=== PATIENT | female | born 1955 | race Caucasian/White ===

== ENCOUNTER 2016-03-04 09:43 | Inpatient (IN) | payer MEDICARE, OTHER ==
[~2016-03-04] VITALS: Ht 167.6 cm; Wt 57.0 kg
[2016-03-04] VITALS (7 sets, daily range): BP systolic 90–123; BP diastolic 51–59; PULSE 83–88; RESP 16; TEMP 95.6; Ht 167.6 cm; Wt 57.0 kg
[~2016-03-04 09:43] MED LIST: ACET1TAB40 PO; AMLO-218 PO; CARB200T43 PO; HYDR-2086 PO; HYDR-3671 PO; HYDR200T5 PO; LEVE100018 PO; LISI40TA9 PO; METH-58 PO; PIRO-9 PO
[2016-03-04] MEDS ORDERED: morphine 2 MG INJ IV STA (10:06)
[2016-03-04] MEDS ORDERED: SOD CHLORIDE 0.9% 1,000 ML IV STA (10:06)
--- NOTE | 2016-03-04 10:47 | RADRPT ---
PROCEDURE: Chest Radiograph. CLINICAL INDICATION: Preop TECHNIQUE: Single frontal chest radiograph. COMPARISON: Chest radiograph 10/29/2014 FINDINGS: The cardiomediastinal silhouette is within normal limits. No infiltrate or effusion is seen. Th e bones are intact. IMPRESSION: 1. Unremarkable chest radiograph. RPTAT: KK .Ralph Gonzalez MD, MD Date Time Electronically viewed and signed by .Ralph Gonzalez MD, on 03/04/2016 10:46 .B/
--- NOTE | 2016-03-04 10:49 | RADRPT ---
PROCEDURE: XR Hip. CLINICAL INDICATION: Fall, leg shortening, pain TECHNIQUE: AP and frog lateral views of the right hip were performed. COMPARISON: None. FINDINGS: There is an impacted, comminuted intertrochanteric fracture of the right hip. There is varus angula tion of the distal fragment. IMPRESSION: 1. Comminuted, impacted intertrochanteric fracture of the right hip with varus deformity. RPTAT: [facility] Physician Bipin Date Time Electronically viewed and signed by Javid Dawson Physician on 03/04/2016 10:49 /
[2016-03-04 11:38] LABS: HEMATOCRIT 31.9 % (37.0-47.0); HEMOGLOBIN 10.9 g/dl (12.0-16.0); MEAN CORPUSCULAR HEMOGLOBIN 33.1 pg (29.0-33.0); MEAN CORPUSCULAR HGB CONC 34.2 g/dl (32.0-37.0); MEAN CORPUSCULAR VOLUME 96.8 fl (82.0-101.0); MEAN PLATELET VOLUME 7.3 fl (7.4-10.4); PLATELET COUNT 278 10^3/UL (140-440); RED BLOOD COUNT 3.29 10^6/ul (4.20-5.40); RED CELL DISTRIBUTION WIDTH 13.8 % (11.5-14.5); UNCORRECTED WBC 17.6 10^3/ul (4.8-10.8); WHITE BLOOD COUNT 17.6 10^3/ul (4.8-10.8)
[2016-03-04 11:43] LABS: POTASSIUM 4.5 mmol/L (3.5-5.1)
[2016-03-04 11:45] LABS: CONDITION 1; CREATININE 2.6 mg/dl (0.44-1.00); LH ANALYZER COMMENTS 1; SUSPECT 1
[2016-03-04 11:46] LABS: CALCIUM 7.8 mg/dl (8.4-10.2)
[2016-03-04 11:51] LABS: ADD UMIC YES; URINE BILIRUBIN (Dip) 1+ (NEGATIVE); URINE BLOOD (Dip) NEGATIVE (NEGATIVE); URINE COLOR AMBER (YELLOW); URINE GLUCOSE (Dip) NEGATIVE (NEGATIVE); URINE KETONES (Dip) 15 (NEGATIVE); URINE LEUKOCYTE ESTERASE (Dip) NEGATIVE (NEGATIVE); URINE NITRITE (Dip) NEGATIVE (NEGATIVE); URINE TOTAL PROTEIN (Dip) 1+ (NEGATIVE); URINE UROBILINOGEN (Dip) 0.2 E.U./dL (0.1-1.0)
[2016-03-04] MEDS ORDERED: SOD CHLORIDE 0.9% 1,000 ML IV ONE (12:00)
[2016-03-04 12:22] LABS: BACTERIA,URINE MODERATE; ICTOTEST NEGATIVE (NEGATIVE); URINE RBCS NONE SEEN /HPF (0)
[2016-03-04] MEDS ORDERED: CEFTRIAXONE 1 GM/50 ML (PMX) 50 ML IVPB STA (12:32)
[2016-03-04] MEDS ORDERED: ACETAMINOPHEN 325 MG TAB PO PRN ×2 (13:00→15:00)
[2016-03-04] MEDS ORDERED: ONDANSETRON 4 MG INJ IV PRN ×2 (13:00→15:00)
[2016-03-04 13:17] LABS: LYMPHOCYTES # 0.7 10^3/ul (0.8-2.9); MONOCYTE # 0.5 10^3/ul (0.3-0.9)
[2016-03-04] MEDS ORDERED: DOCUSATE SODIUM 100 MG CAP PO PRN (15:00)
[2016-03-04] MEDS ORDERED: HYDROCODONE/APAP (5/325) TAB PO PRN ×2 (15:00)
[2016-03-04] MEDS ORDERED: NACL 0.9% 3 ML SYG IV SCH (15:00)
[2016-03-04] MEDS ORDERED: BISACODYL 10 MG SUPP PR PRN (15:00)
[2016-03-04] MEDS ORDERED: MAGNESIUM HYDROXIDE 30ML CUP PO PRN (15:00)
[2016-03-04] MEDS: carBAMAZepine (XR) 100 MG TABSR PO SCH ×2 (15:06→20:17)
[2016-03-04] MEDS ORDERED: LEVOFLOXACIN 500MG/D5W (PMX) 100 ML IVPB SCH (15:30)
[2016-03-04] MEDS: SOD CHLORIDE 0.9% 1,000 ML IV SCH (16:02)
--- NOTE | 2016-03-04 17:11 | RADRPT ---
PROCEDURE: US Renal CLINICAL INDICATION: Acute renal insufficiency. TECHNIQUE: Multiple sonographic images of the kidneys and bladder were obtained. Evaluation of th e kidneys and bladder was performed as well with yoder scale and color and Doppler evaluation using a curved array transducer. The images were reviewed on a high-resolution PACS workstation. COMPARISON: No prior studies are available for comparison. FINDINGS: The right kidney measures 9.5 x 5.6 x 5.7 cm. The left kidney measures 10.8 x 6.6 x 5.3 cm. There is normal echogenicity within the parenchyma of the kidneys bilaterally. There is no mass, calculus, or obstructive uropathy. No perinephric fluid collection is seen. There is a Pelaez catheter in the urinary bladder. IMPRESSION: 1. Unremarkable renal ultrasound. RPTAT: [facility] Physician Bipin Date Time Electronically viewed and signed by Physician Bipin on 03/04/2016 17:11 /
[2016-03-04 17:26] LABS: INR 1.12; PROTIME 14.4 Sec (12.2-14.2); PT RATIO 1.1
[2016-03-04 17:27] LABS: PARTIAL THROMBOPLASTIN TIME 25.5 Sec (25.0-35.0)
--- NOTE | 2016-03-04 17:41 | RADRPT ---
Echocardiogram Report Patient Name: LISHA CAPONE Gender: Female Date: 1955 Study Date: 04-Mar-2016 Route Supervisor: Fazal Roberson [facility] Location: 507 Ref. Physician: OSCAR RENEE Quality: Good Procedures: Transthoracic echocardiogram with complete 2D, M-Mode, and doppler examination. Indications: Pre-op. 2D/M Mode Doppler Measurement Value Normal Ranges Measurement Value Normal Ranges LVIDd 2D 3.6 3.5 - 5.6 cm AV Peak Heron 1.8 m/sec LVIDs 2D 1.8 2.1 - 4.1 cm AV Peak PG 13.0 mmHg FS 2D 49.9 % LVOT Peak Heron 1.5 m/sec LVPWd 2D 1.0 0.6 - 1.1 cm LVOT Peak PG 9.0 mmHg IVSd 2D 1.1 0.6 - 1.1 cm MV E Peak Heron 0.6 m/sec IVS/LVPW 2D 1.2 MV A Peak Heron 0.9 m/sec AoR Diam 2D 3.0 2.0 - 3.7 cm MV E/A 0.6 LA/Ao 2D 1 0 - 1 MV Decel Time 268 msec EDV 2D 45.5 cm3 MV E/A 0.6 ESV 2D 5.7 cm3 LA Dimen 2D 2.5 2.3 - 4.0 cm Findings Left Ventricle: Hyperdynamic left ventricular systolic function. Normal left ventricular cavity size. Mild concentric left ventricular hypertrophy. Ejection fraction is visually estimated at >65 %. Tissue Doppler/Mitral Doppler indices are consistent with impaired relaxation (Stage I diastolic dysfunction). Right Ventricle: Normal right ventricular size. Normal right ventricular systolic function. Left Atrium: The left atrium is normal in size. Right Atrium: The right atrium is normal in size. Mitral Valve: Mild mitral leaflet calcification. Mild mitral annular calcification. Trace mitral regurgitation. Aortic Valve: No significant aortic stenosis or insufficiency. Aortic cusps appear mildly calcified. Tricuspid Valve: Normal appearance of the tricuspid valve. Unable to obtain RVSP due to minimal presence of tricuspid regurgitation. Pericardium: Trivial pericardial effusion. Aorta: Normal aortic root. IVC: Normal size and normal respiratory collapse consistent with normal right atrial pressure. Conclusions 1.Hyperdynamic left ventricular systolic function. Normal left ventricular cavity size. Mild concentric left ventricular hypertrophy. Ejection fraction is visually estimated at >65 %. Tissue Doppler/Mitral Doppler indices are consistent with impaired relaxation (Stage I diastolic dysfunction). 2.Mild mitral leaflet calcification. Mild mitral annular calcification. Trace mitral regurgitation. 3.Normal appearance of the tricuspid valve. Unable to obtain RVSP due to minimal presence of tricuspid regurgitation. 4.Trivial pericardial effusion. Electronically Signed By: James Noe 04-Mar-2016 17:40:19 -0800 Patient Name: ILSHA CAPONE Study Date: 04-Mar-[id number]
--- NOTE | 2016-03-04 18:16 | HP ---
DATE OF ADMISSION: 03/04/2016 PRIMARY PHYSICIAN: Dr. Calderón PRIMARY NEUROLOGIST: Dr. Hernandez CHIEF COMPLAINT ON ADMISSION: Status post fall with right hip pain. HISTORY OF PRESENT ILLNESS: This is a 60-year-old female with history of seizure disorder, hyperten aracelis, rheumatoid arthritis and chronic pain, under the care of a chiropractor and also undergoing ph ysical therapy as an outpatient mostly for her arm pain and neck pain, who presented to the emergenc y department with a complaint of right hip pain status post fall yesterday. The patient had an x-ra y and was found to have a comminuted, impacted intertrochanteric fracture of the right hip. The pat marcia reports that she has been undergoing physical therapy. She really does not use any assistive d evice but has been having a lot of pain throughout her body that she is treating currently and also has noticed some unsteadiness occasionally and pain in her lower extremities, again for which she nance s been under the treatment of a chiropractor currently. Yesterday she reports that her legs just ga ve out and she fell on her right side. After the fall, she needed assistance from her neighbor to b e able to get up. She wasn't really able to get up on her own. She has not been much mobile. The pain has been worsening over the past 24 hours. She came to the emergency department. In the ER, a gain she had x-ray of the hip and was found to have a right hip intertrochanteric fracture. ___ _, Orthopedic Surgery assessment nurse practitioner, has been called and notified. Also the patient is noted to have an e levated white blood cell count of 17. Blood pressure was slightly low. She is hypertensive, on mul tiple blood pressure medications. She took them today. Therefore, she was started on IV fluids, an d her blood pressure medications are on hold. She is also noted to have acute kidney injury. It is unclear if she was down long after the fall. Therefore, total CK is pending, and she is started on IV fluid. A Pelaez catheter was placed. The patient is afebrile. She is hemodynamically stable. She is at her baseline currently. She is admitted to a telemetry bed for now. Orthopedic surgery e valuation is pending. She was given a dose of Rocephin. The patient also reports that over the pas t week she has had upper respiratory infection for which she has been treated symptomatically so far and seems to be recovering from it. She denies any chest pain. She denies cough actually currentl y. She denies any nausea, vomiting, abdominal pain. She denies any other acute symptoms. No new n eurological deficit and no cardiopulmonary complaints. ALLERGIES: NO KNOWN ALLERGIES. PAST MEDICAL HISTORY: 1. Seizure disorder. 2. Rheumatoid arthritis. 3. Hypertension. 4. Chronic pain, narcotic dependent. 5. Previous history of hyponatremia. PAST SURGICAL HISTORY: The patient has had bunionectomy in the past but also seems to have had some orthopedic surgery done as a child. SOCIAL HISTORY: She lives alone with multiple animals. She drinks alcohol occasionally. She hasn' t drank anything over the past month. She does smoke still, 1 pack a day over the past 30 years now . OUTPATIENT MEDICATIONS: 1. Plaquenil 200 mg p.o. b.i.d. 2. Norvasc 10 mg p.o. daily. 3. Hydralazine 25 mg p.o. t.i.d. as needed for hypertension. 4. Lisinopril 40 mg p.o. daily. 5. Methyldopa 500 mg p.o. b.i.d. 6. Tylenol with codeine 30/30 one tablet p.o. q.4 hours p.r.n. pain. 7. Carbamazepine XR 400 mg p.o. t.i.d. 8. Vicodin 5/300 one tablet p.o. q.4 hours p.r.n. pain. 9. Keppra 1000 mg p.o. b.i.d. 10. Piroxicam 20 mg p.o. daily. PHYSICAL EXAMINATION: VITAL SIGNS: Temperature is 95.6, heart rate of 69, respiratory rate 18, blood pressure 100/60. Th e patient is satting 98% on room air. GENERAL: She is alert and oriented x4. She is at her baseline, just complaining of pain in her rig ht hip. HEENT: Pupils are equally round and reactive to light. Extraocular muscles are intact. Anicteric sclerae. NECK: No JVD, no thyromegaly noted. HEART: Regular rate and rhythm. No murmur, rubs or gallops. LUNGS: Clear to auscultation bilaterally. No expiratory wheezes heard. No congestion. No crackle s. ABDOMEN: Soft, nontender, nondistended. Bowel sounds are present. EXTREMITIES: She does have pain on her right hip. It's externally rotated, shorter than the left l ower extremity. She has no edema, clubbing or cyanosis noted. NEUROLOGIC: Very limited exam but at baseline. LABORATORY DATA: White blood cell count is 17.6, hemoglobin 10.9, hematocrit 31.9, platelet count o f 278. Chemistry with a sodium of 131, potassium 102, bicarbonate 16, BUN 48, creatinine 2.60 and a glucose of 99. Lactic acid 1.1, calcium 7.8. INR is pending. Urinalysis: Negative nitrites, neg ative leukocyte esterase, moderate bacteria. ELECTROCARDIOGRAM: On admission shows normal sinus rhythm, some LVH. No acute ST or T-wave abnorma lity noted. RADIOLOGICAL DATA: Chest x-ray today shows no acute cardiopulmonary disease. X-ray of the right hip shows a comminuted, impacted intertrochanteric fracture of the right hip with varus deformity. ASSESSMENT AND PLAN: This is a 60-year-old female with: 1. Right hip fracture status post fall which seems to be more as accidental. She does have a right hip fracture. Orthopedic Surgery has been consulted. From the medical standpoint, she is likely a low to moderate risk for surgery. We will continue to hydrate her given her acute kidney injury, a nd a 2-D echocardiogram has been ordered given her history of significant hypertension. Otherwise, she does not need any additional workup needed at this point. We are also waiting on blood cultures and urine cultures given her elevated white blood cell count, but her chest x-ray is negative. She will be monitored closely perioperatively. 2. Acute kidney injury. Will check a total CK as it is unclear if the patient was sitting down for a while or not. Continue IV fluid. Check renal ultrasound and monitor renal function. Pelaez cath eter is in place. Continue to monitor urine output. 3. Hypertension, severe, on multiple agents. Currently her blood pressure is hypotensive to normot ensive. Continue IV fluids in the setting of acute kidney injury and will hold all the blood pressu re medications for now. 4. Chronic hyponatremia. Her baseline sodium level is 120 to 130. Continue IV fluids for now and monitor her sodium level. 5. Seizure disorder. Continue outpatient medications. 6. Chronic pain, narcotic dependent. Continue current pain medications. Morphine has been added a s needed for hip pain. 7. Leukocytosis, unclear etiology. The patient does report that she has been having symptoms of up per respiratory infection lately. I will put her on Levaquin, which would cover also respiratory, a nd follow up white blood cell count in a.m. 8. Prophylaxis: Sequential compression devices to lower extremity for DVT prophylaxis, may convert to Lovenox once we know timing for surgery. Protonix for GI prophylaxis. DISPOSITION: Orthopedic surgery consult pending. Follow up on blood cultures, urine cultures and r enal function and white blood cell count with repeat labs in the morning. I will also follow up on the 2-D echocardiogram, and PT, PTT, INR have been ordered. Dictated By: AMBROSE PAREDES/DELGADO Conf#: [id number] DID#: [id number]
[2016-03-04] MEDS: LEVETIRACETAM 500 MG TAB PO SCH (20:16)
[2016-03-04] MEDS: HYDROXYCHLOROQUINE 200 MG TAB PO SCH (20:16)
--- NOTE | 2016-03-04 20:39 | ERA ---
DATE OF SERVICE: 03/04/2016 HISTORY OF PRESENT ILLNESS: This is a 60-year-old female brought in by ambulance today for right hi p pain. She states that she fell yesterday when her right leg "gave out." She had no chest pain, l ightheadedness or shortness of breath prior to this. She had been seeing a chiropractor for leg and back problems recently. She denies head injury or loss of consciousness. States that she was ambu latory on the hip yesterday, but this morning, she could not walk because of the pain of her hip. D enies any fever, chills, weakness or neurological symptoms. She does not frequently see doctors. REVIEW OF SYSTEMS: Ten-point review of systems negative except as in HPI. PAST MEDICAL HISTORY: Seizure disorder. PAST SURGICAL HISTORY: Benign lump removed from right breast, ENT surgery, left foot surgery. SOCIAL HISTORY: Drinks alcohol occasionally, smokes cigarettes. Denies any other drugs. FAMILY HISTORY: Noncontributory. PHYSICAL EXAMINATION: VITAL SIGNS: Temperature 98.5, pulse 78, blood pressure 100/60, respirations 18, oxygen saturation 98% on room air. GENERAL: No acute distress. HEENT: Atraumatic, normocephalic. Slightly dry mucous membranes in the mouth. NECK: Supple. No tenderness, JVD or meningismus. CARDIAC: Regular rate and rhythm. No murmurs. LUNGS: Clear to auscultation bilaterally. ABDOMEN: Soft, nontender, nondistended. No masses. EXTREMITIES: Right leg with shortening, external rotation, tenderness along the right greater troch anter. Significant pain on any slight attempt to internally or externally rotate the hip. Full mus culoskeletal assessment finds no other injuries at any location. The patient has distal pulses inta ct, 2+ dorsalis pedis and posterior tibial of bilateral lower extremities. Good capillary refill, a pproximately 1 second. Sensation is intact as well as motor, bilateral feet. NEUROLOGIC: Alert and oriented x3. Cranial nerves II through XII intact. No cerebellar deficits. SKIN: No rashes or other lesions. DIAGNOSTIC DATA: Hip x-ray interpretation by myself: Intertrochanteric fracture with significant v arus angulation, approximately 90 degrees. No other fracture of the pelvis or other fracture visual ized. Chest x-ray interpretation by myself: I see no acute process, no infiltrates, no pulmonary edema, n o pneumothorax, no fractures. Laboratory analysis: CBC significant for elevated white blood cell count of 17.9 with a left shift, normocytic anemia with a hemoglobin of 10.9. Coagulation studies are within normal limits with an INR of 1.1. BMP significant for mildly decreased sodium as well as acute kidney injury with a creat inine of 2.6 and a BUN of 48. Urinalysis shows andrew-colored urine with 2 to 5 white cells per high -power field but negative leukocyte esterase. However, moderate bacteria are seen even with few squ amous epithelial cells. The urine is cloudy. EKG interpretation: Normal sinus rhythm with no ST or T-wave changes concerning for acute ischemia, no concerning intervals. Normal axis, rate of 84, left ventricular hypertrophy. EMERGENCY DEPARTMENT COURSE AND MEDICAL DECISION MAKING: Right hip fracture with acute kidney injur y and elevated white blood cell count without obvious source of infection. The patient was hydrated with 2 L of normal saline. She was given 2 mg of morphine, which helped with her pain hip signific antly, and she had very low pain when she was not moving. When her white blood cell count returned elevated, she was also given Rocephin for empiric treatment of infection. There is no obvious sourc e of infection at this point although there were many bacteria in her urine, so it is possible she h as a urinary tract infection, which may also cause her to fall more easily. She has no signs of sep sis as lactic acid is only 1.1 and vital signs remain stable except for episodic mild hypotension. I did speak with Dr. Saldana, orthopedist financial services consultant, who agreed to see the patient on consult. I also spo ke with Dr. Prado, who agreed to admit the patient to medical/surgical floor. I ordered a CK to rule out rhabdomyolysis, although the patient states that she was mobile until this morning. Dr. Johan morrison to follow up with it. ADMISSION DIAGNOSES: 1. Right intertrochanteric hip fracture, closed. 2. Acute kidney injury. 3. Urinary tract infection. 4. Hyponatremia. DISPOSITION: Admitted in stable condition. Dictated By: MANOJ ORDONEZ/DELGADO Conf#: [id number] DID#: [id number]
[2016-03-04] MEDS ORDERED: carBAMAZepine (XR) 200 MG TABSR PO SCH (21:00)
[2016-03-04] MEDS: morphine 2 MG INJ IV PRN (22:04)
[2016-03-04 22:08] LABS: CK-MB 26.2 ng/ml (0.0-2.4)
[2016-03-04 22:20] LABS: TROPONIN-I 0.296 ng/ml (0.00-0.12)
--- NOTE | 2016-03-04 23:32 | RADRPT ---
PROCEDURE: XR Right Femur. CLINICAL INDICATION: Right leg pain. Fracture. TECHNIQUE: Single frontal view of the right femur. COMPARISON: Right hip radiographs done earlier the same day. FINDINGS: As seen previously, there is a comminuted impacted intertrochanteric fracture of the right hip with varus deformity. The right femur is otherwise unremarkable with no other fracture or dislocation. Vascular calcifications are present consistent with atherosclerosis. Articular surfaces are intact. There is no lytic or blastic lesion. There is no radiopaque foreign body. IMPRESSION: 1. Comminuted impacted intertrochanteric fracture of the right hip with varus deformity. 2. Otherwise unremarkable frontal view of the right femur. RPTAT: QQ .Abdirashid Kothari MD, Date Time Electronically viewed and signed by .Abdirashid Kothari MD, MD on 03/04/2016 23:31 .R/
--- NOTE | 2016-03-04 23:33 | RADRPT ---
PROCEDURE: Right knee radiograph. CLINICAL INDICATION: Right knee pain. TECHNIQUE: Single frontal view. COMPARISON: None. FINDINGS: The right knee is intact with no fracture or lytic lesion. IMPRESSION: 1. Unremarkable limited frontal view of the right knee. RPTAT: QQ .Abdirashid Kothari MD, MD Date Time Electronically viewed and signed by .Abdirashid Kothari MD, MD on 03/04/2016 23:32 .R/
[2016-03-05] VITALS (11 sets, daily range): BP systolic 114–151; BP diastolic 58–78; PULSE 77–97; RESP 16–18
[2016-03-05] MEDS: SOD CHLORIDE 0.9% 1,000 ML IV SCH ×3 (00:38→16:03)
--- NOTE | 2016-03-05 01:13 | CONS ---
DATE OF ADMISSION: 03/04/2016 DATE OF CONSULTATION: 03/04/2016 CHIEF COMPLAINT: Right hip pain. HISTORY OF PRESENT ILLNESS: This is a 60-year-old female with a history of seizure disorder who fel l, sustaining a right hip fracture. The patient was unable to ambulate. She denies any loss of con sciousness. She was brought to the emergency room by EMS. She denies any chest pain, shortness of breath. She has no other complaints. PAST MEDICAL HISTORY: Seizures, hypertension, rheumatoid arthritis, narcotic dependent. MEDICATIONS: 1. Plaquenil 200 mg p.o. b.i.d. 2. Norvasc 10 mg daily. 3. Hydralazine 25 mg daily. 4. Lisinopril 40 mg daily. 5. Methyldopa 500 mg b.i.d. 6. Keppra 1000 mg p.o. b.i.d. 7. Piroxicam 20 mg daily. PAST SURGICAL HISTORY: Bunionectomy. SOCIAL HISTORY: She lives alone. She admits to alcohol and tobacco use. FAMILY HISTORY: Noncontributory. ALLERGIES: NO KNOWN DRUG ALLERGIES. PHYSICAL EXAMINATION: VITAL SIGNS: Temperature 95.6, heart rate of 69, blood pressure 100/60. GENERAL: The patient is in no acute distress. She is resting comfortably. RIGHT HIP: There are no open wounds. She has pain with axial loading. Her hip is shortened and ex ternally rotated. Her calf is soft, nontender with a negative Homans. She has a palpable dorsalis pedis pulse. IMAGING: X-rays of the right hip demonstrate displaced oblique intertrochanteric fracture. There i s also fracture of the lesser trochanter. The femoral head is in varus position. No other fracture s, dislocations are seen. IMPRESSION: A 60-year-old female who fell, sustaining a left closed displaced oblique intertrochant steffany femur fracture. PLAN: The patient will be nonweightbearing. She will need medical clearance for surgery. She has an elevated white count. There is no obvious source of infection. The patient will require right h ip open reduction, internal fixation. I discussed the risks associated with surgery. The risks include but are not limited to infection, deep venous thrombosis, pulmonary embolism, damage to neurovascular structures, malunion, nonunion, need for revision surgery, need for hardware removal, arthritis, heart attack, stroke, need for bloo d transfusion and even . I also explained to her that there is up to a 35% chance of 1-year mo rtality. She will receive Ancef 1 gram prior to surgery with 2 additional doses after surgery. She will also receive aspirin 325 mg p.o. b.i.d. for 6 weeks for DVT prophylaxis in addition to SCDs fo r DVT prophylaxis. Dictated By: KY MONTERO/DELGADO Conf#: [id number] DID#: [id number]
[2016-03-05] MEDS: morphine 2 MG INJ IV PRN ×2 (03:00→23:09)
[2016-03-05] MEDS: PANTOPRAZOLE (EC) 40 MG TAB PO SCH (05:51)
[2016-03-05 07:33] LABS: CK-MB 18.7 ng/ml (0.0-2.4)
[2016-03-05 07:34] LABS: BASOPHILS % 0.1 % (0.0-2.0); EOSINOPHILS % 0.2 % (0.0-7.0); HEMATOCRIT 29.5 % (37.0-47.0); HEMOGLOBIN 10.1 g/dl (12.0-16.0); LYMPHOCYTES # 0.9 10^3/ul (0.8-2.9); LYMPHOCYTES % 8.3 % (15.0-51.0); MEAN CORPUSCULAR HEMOGLOBIN 33.7 pg (29.0-33.0); MEAN CORPUSCULAR HGB CONC 34.3 g/dl (32.0-37.0); MEAN CORPUSCULAR VOLUME 98.3 fl (82.0-101.0); MEAN PLATELET VOLUME 7.4 fl (7.4-10.4); MONOCYTE # 1.1 10^3/ul (0.3-0.9); MONOCYTES % 10.1 % (0.0-11.0); NEUTROPHIL # 8.8 10^3/ul (1.6-7.5); NEUTROPHILS % 81.3 % (39.0-77.0); PLATELET COUNT 230 10^3/UL (140-440); RED CELL DISTRIBUTION WIDTH 13.4 % (11.5-14.5); UNCORRECTED WBC 10.8 10^3/ul (4.8-10.8); WHITE BLOOD COUNT 10.8 10^3/ul (4.8-10.8)
[2016-03-05 07:38] LABS: CONDITION 1
[2016-03-05 07:49] LABS: TROPONIN-I 0.266 ng/ml (0.00-0.12)
[2016-03-05 08:07] LABS: CHOL/HDL RATIO 4.3 RATIO
[2016-03-05] MEDS: HYDROXYCHLOROQUINE 200 MG TAB PO SCH ×2 (08:20→20:41)
[2016-03-05] MEDS: LEVETIRACETAM 500 MG TAB PO SCH ×2 (08:20→20:41)
[2016-03-05] MEDS: PIROXICAM 10 MG CAP PO SCH (08:20)
[2016-03-05] MEDS: carBAMAZepine (XR) 100 MG TABSR PO SCH ×3 (08:20→20:41)
[2016-03-05 08:47] LABS: ALBUMIN 2.7 g/dl (3.3-4.9); POTASSIUM 4.7 mmol/L (3.5-5.1)
[2016-03-05 08:49] LABS: BILIRUBIN,INDIRECT 0.2 mg/dl (0-1.1); BILIRUBIN,TOTAL 0.2 mg/dl (0.2-1.3); CREATININE 1.17 mg/dl (0.44-1.00)
[2016-03-05 08:50] LABS: ALBUMIN/GLOBULIN RATIO 1.08; CALCIUM 8.4 mg/dl (8.4-10.2); TOTAL PROTEIN 5.2 g/dl (6.1-8.1)
[2016-03-05] MEDS ORDERED: PIROXICAM 20 MG PO SCH (09:00)
[2016-03-05] MEDS ORDERED: FELODIPINE (ER) 10 MG TAB PO SCH (09:00)
[2016-03-05] MEDS ORDERED: REGADENOSON 0.4 MG/5 ML SYG ONE (10:07)
--- NOTE | 2016-03-05 10:26 | CONS ---
DATE OF ADMISSION: 03/04/2016 DATE OF CONSULTATION: 03/04/2016 TYPE OF CONSULTATION: Cardiology. REASON FOR CONSULTATION: Preoperative evaluation. REQUESTING PHYSICIAN: Dr. Renee HISTORY OF PRESENT ILLNESS: Ms. Guerin is a 60-year-old female with a history of hypertension, se izure disorder, rheumatoid arthritis, chronic pain syndrome who initially presented status post fall . The patient states that she was walking and felt that her legs gave out from under her. The justa ent denied a prodrome of chest pain, palpitations, dizziness, shortness of breath. Upon arrival in the emergency department, temperature of 98.5, blood pressure 100/60, pulse 78, respiratory rate 18, saturating 98%. The patient's labs revealed a white cell count of 17.6, hemoglobin 10.9, a platele t count of 278. Sodium 131, potassium 4.5, creatinine 2.6, BUN of 48, CK total of 2460. The patien t underwent a UA revealing bacteria. The patient underwent a renal ultrasound revealing no signific ant abnormalities; a hip x-ray revealed a comminuted, impacted intertrochanteric fracture of the ___ _ hip with varus deformity; and a chest x-ray that revealed unremarkable chest radiograph. The justa ent's electrocardiogram revealed sinus rhythm, rate of 84 with normal axis, normal intervals, left v entricular hypertrophy by voltage criteria, secondary repolarization abnormalities, borderline septa l Q's, nonspecific ST and T abnormalities. The patient subsequently has been admitted to the floor and since admit to floor denies chest pain, shortness of breath. PAST MEDICAL HISTORY: As above in HPI. MEDICATIONS CURRENTLY IN HOSPITAL: 1. Piroxicam. 2. Protonix 40 mg daily. 3. Plaquenil. 4. Keppra 1000 mg b.i.d. 5. Levofloxacin. 6. Tegretol 400 mg t.i.d. 7. Zofran p.r.n. 8. Tylenol p.r.n. 9. [place] p.r.n. 10. Colace p.r.n. 11. Morphine p.r.n. 12. Dulcolax. 13. IV fluid hydration. ALLERGIES: NO KNOWN DRUG ALLERGIES. SOCIAL HISTORY: No tobacco, ETOH, illicit drug use. FAMILY HISTORY: No history of sudden cardiac or early CAD. REVIEW OF SYSTEMS: As above in HPI. CONSTITUTIONAL: No fevers, chills. PULMONARY: No current shortness of breath. CARDIOVASCULAR: No current chest pain. GASTROINTESTINAL: No vomiting. GENITOURINARY: No hematuria. MUSCULOSKELETAL: No significant myalgia, arthralgia. ____ hip fracture. ENDOCRINE: No documented history of diabetes mellitus. PSYCHIATRIC: No documented psychiatric history. PHYSICAL EXAMINATION: VITAL SIGNS: Temperature of 95.6, blood pressure 100/60, pulse ____, respiratory rate 18, saturatin g 98%. GENERAL: The patient is alert, awake. No acute distress. NECK: JVP approximately 8 cm of water. CHEST: Fair air movement throughout with mildly decreased breath sounds at bases bilaterally. HEART: Regular rate and rhythm. Normal S1, S2. I/ systolic murmur. Nondisplaced PMI. ABDOMEN: Positive bowel sounds. Soft. EXTREMITIES: No pitting edema. 1+ pulses bilaterally at posterior tibial. LABORATORY DATA: As above in HPI. No further labs for my review at this time. IMAGING STUDIES: As above in HPI. No further imaging studies for my review at this time. ELECTROCARDIOGRAM: As above in HPI. No further electrocardiograms for my review at this time. IMPRESSION: 1. Preoperative evaluation prior to hip open reduction, internal fixation. 2. Status post fall, mechanical by description. 3. Hypotension, borderline. 4. Abnormal electrocardiogram with nonspecific ST and T abnormalities, left ventricular hypertrophy . 5. Hip fracture, intertrochanteric fracture, ____ hip. 6. Leukocytosis. 7. Anemia. 8. Renal failure. RECOMMENDATIONS: 1. At this time would maintain patient on telemetry monitoring to follow rhythm and rate control cl osely. 2. Would complete a rule-out for myocardial infarction, ensure that the patient's EKG abnormalities , fall are not the result of an acute coronary syndrome such as an acute myocardial infarction. 3. Will check a 2D echocardiogram to further assess patient's ejection fraction, wall motion, any m ajor valve abnormalities and will follow the patient's blood pressure closely and check a BNP to fur ther assess patient's current volume status. Continue IV fluid hydration. 4. Continue the patient's current antibiotics and follow up all culture data. 5. Continue the patient's anti-seizure medications. 6. Additionally, check a fasting lipid panel for general risk stratification and initiate lipid-low ering medication as necessary. 7. If the patient's troponins return negative x3 and the patient's 2D echo is without significant a bnormalities, then at that time the patient will be without cardiac contraindication to proceeding t o the OR on current medical therapy without further noninvasive evaluation. The patient, given madelin rbid risk factors, will be at moderate risk for cardiovascular complications but without contraindic ation. Postoperatively would check a 12-lead EKG to assess for any significant ongoing changes and watch closely for signs or symptoms of cardiovascular complications including but not limited to the onset of chest pain, shortness of breath, uncontrolled cardiac arrhythmias or congestive heart fail ure. Dictated By: DAKOTAH BENÍTEZ/DELGADO Conf#: [id number] DID#: [id number] CC: AMBROSE RENEE MD;*End*
--- NOTE | 2016-03-05 10:59 | CONS ---
Date/Time of Note Date/Time of Note DATE: 03/05/16 TIME: 10:52 Assessment/Plan Assessment/Plan Chief Complaint/Hosp Course IMPRESSION: 1. Preoperative evaluation prior to hip open reduction, internal fixation. 2. Status post fall, mechanical by description. 3. Hypotension, borderline. 4. Abnormal electrocardiogram with nonspecific ST and T abnormalities, left ventricular hypertrophy. 5. Hip fracture, intertrochanteric fracture of hip. 6. Leukocytosis. 7. Anemia. 8. Renal failure. 9.Positive troponin-minimal/no current cp but sob in setting of renal failure. Now downtrending/NL EF by echo this admit with no sig valve abnl Recc: -Tele -asa -follow improving BP -Continue IVF hydration and follow volume status closely -Pain control -lexiscan stress test this AM to assess significance of positive troponin Problems: Consultation Date/Type/Reason Admit Date/Time Mar 04, 2016 at 12:54 Initial Consult Date 03/04/2015 Type of Consultation: Cardiology Reason for Consultation Pre-op Referring Provider: AMBROSE RENEE Exam/Review of Systems Vital Signs Vitals Vital Signs Date Time Temp Pulse Resp B/P Pulse Ox O2 Delivery O2 Flow Rate FiO2 03/05/16 08:08 90 03/05/16 08:07 98.5 16 133/72 99 03/05/16 02:19 Room Air Intake and Output 03/04/16 03/04/16 03/05/16 15:00 23:00 07:00 Intake Total 600 ml 1340 ml Output Total 150 ml 750 ml Balance 450 ml 590 ml Exam Review of Systems: CONSTITUTIONAL: No fevers, chills. PULMONARY: mild sob CARDIOVASCULAR: No chest pain/palpitations GASTROINTESTINAL: No nausea/vomiting. GENITOURINARY: No hematuria/dysuria. MUSCULOSKELETAL: No myagias/arthalgias. PSYCHIATRIC: The patient denies depression. NEUROLOGIC: No weakness Constitutional: alert, oriented Psych: no complaints Head: normocephalic ENMT: mucosa pink and moist Neck: jvd (8 cm water), supple Respiratory: diminished breath sounds Cardiovascular: regular rate and rhythm Gastrointestinal: non-tender, soft Musculoskeletal: muscle tone (normal), other (Pain in Hip) Extremities: edema (none) Results Result Diagram: 03/05/16 0615 03/05/16 0615 Results 24 hrs Laboratory Tests Test 03/04/16 11:15 03/04/16 11:35 03/04/16 12:35 03/04/16 15:45 Anion Gap 18 H Band Neutrophils % 8.0 H Blood Morphology Comment Blood Urea Nitrogen 48 H Calcium Level 7.8 L Carbon Dioxide Level 16 L Chloride Level 102 Creatinine 2.60 H Glucose Level 99 Hematocrit 31.9 L Hemoglobin 10.9 L Lymphocytes # 0.7 L Lymphocytes % 4.0 L Mean Corpuscular Hemoglobin 33.1 H Mean Corpuscular Hemoglobin Concent 34.2 Mean Corpuscular Volume 96.8 Mean Platelet Volume 7.3 L Monocytes # 0.5 Monocytes % 3.0 Neutrophils # 15.0 H Neutrophils % 85.0 H Platelet Count 278 Potassium Level 4.5 Red Blood Count 3.29 L Red Cell Distribution Width 13.8 Sodium Level 131 L White Blood Count 17.6 #H Urine Amorphous Urates MANY Urine Bacteria MODERATE Urine Bilirubin 1+ H Urine Clarity SLIGHTLY CLOUDY Urine Color B[place]AMIN Urine Epithelial Cells FEW Urine Glucose NEGATIVE Urine Hemoglobin NEGATIVE Urine Ictotest NEGATIVE Urine Ketones 15 Urine Leukocyte Esterase NEGATIVE Urine Microscopic RBC NONE SEEN Urine Microscopic WBC 2-5 Urine Nitrite NEGATIVE Urine Specific Ralph >=1.030 H Urine Total Protein 1+ H Urine Urobilinogen 0.2 E.U./dL Urine pH 5.0 Lactic Acid Level 1.1 Creatine Kinase 2460 H Test 03/04/16 17:05 03/04/16 21:32 03/05/16 06:15 Activated Partial Thromboplast Time 25.5 INR International Normalized Ratio 1.12 Prothrombin Time 14.4 H Prothrombin Time Ratio 1.1 Creatine Kinase 2401 H 1567 H Creatine Kinase Index 1.1 1.2 Creatinine Kinase MB (Mass) 26.20 H 18.70 H Troponin I 0.296 *H 0.266 *H Alanine Aminotransferase (ALT/SGPT) 41 Albumin 2.7 L Albumin/Globulin Ratio 1.08 Alkaline Phosphatase 73 Anion Gap 16 Aspartate Amino Transf (AST/SGOT) 84 H B-Type Natriuretic Peptide 622 H Basophils # 0.0 Basophils % 0.1 Blood Urea Nitrogen 38 H Calcium Level 8.4 Carbon Dioxide Level 17 L Chloride Level 105 Cholesterol Level 127 Cholesterol/HDL Ratio 4.3 Creatinine 1.17 #H Direct Bilirubin 0.00 Eosinophils # 0.0 Eosinophils % 0.2 Globulin 2.50 Glucose Level 69 #L HDL Cholesterol 29 L Hematocrit 29.5 L Hemoglobin 10.1 L Indirect Bilirubin 0.2 LDL Cholesterol, Calculated 79 Lymphocytes # 0.9 Lymphocytes % 8.3 L Magnesium Level 2.0 Mean Corpuscular Hemoglobin 33.7 H Mean Corpuscular Hemoglobin Concent 34.3 Mean Corpuscular Volume 98.3 Mean Platelet Volume 7.4 Monocytes # 1.1 H Monocytes % 10.1 Neutrophils # 8.8 H Neutrophils % 81.3 H Nucleated Red Blood Cells # 0.0 Nucleated Red Blood Cells % 0.0 Platelet Count 230 Potassium Level 4.7 Red Blood Count 3.00 L Red Cell Distribution Width 13.4 Sodium Level 133 L Total Bilirubin 0.2 Total Protein 5.2 L Triglycerides Level 93 White Blood Count 10.8 # Medications Medications Current Medications Hydroxychloroquine Sulfate (Plaquenil) 200 mg BID PO Last administered on 08:20; Admin Dose 200 MG; Start 03/04/16 at 21:00 Levetiracetam 1000 mg 1,000 mg BID PO Last administered on 03/05/16 08:20; Admin Dose 1,000 MG; Start 03/04/16 at 21:00 Sodium Chloride (NS) 1,000 ml @ 100 mls/hr Q10H IV Last administered on 03:00; Admin Dose 100 MLS/HR; Start 03/04/16 at 14:38 Ondansetron HCl (Zofran Inj) 4 mg Q6H PRN IV NAUSEA AND/OR VOMITING; Start at 15:00 Acetaminophen (Tylenol Tab) 650 mg Q6H PRN PO PAIN LEVEL 1-3 OR FEVER; Start at 15:00 Acetaminophen/ Hydrocodone Bitart ([place] (5/325)) 1 tab Q6H PRN PO PAIN LEVEL 4 -6 Last administered on 03/04/16 17:13; Admin Dose 1 TAB; Start 03/04/16 at 15: 00 Acetaminophen/ Hydrocodone Bitart ([place] (5/325)) 2 tab Q6H PRN PO PAIN LEVEL 7 -10; Start 03/04/16 at 15:00 Morphine Sulfate (morphine) 2 mg Q4H PRN IV PAIN LEVEL 7-10 Last administered on 03/05/16 03:00; Admin Dose 2 MG; Start 03/04/16 at 15:00 Docusate Sodium (Colace) 100 mg Q12H PRN PO CONSTIPATION; Start 03/04/16 at 15: 00 Magnesium Hydroxide (Milk Of Mag) 30 ml DAILY PRN PO CONSTIPATION; Start at 15:00 Bisacodyl (Dulcolax Supp) 10 mg DAILY PRN [place] CONSTIPATION; Start 03/04/16 at 15 :00 Pantoprazole (Protonix Tab) 40 mg DAILY@06 PO Last administered on 03/05/16 05 :51; Admin Dose 40 MG; Start 03/05/16 at 06:00 Carbamazepine (Tegretol Xr) 400 mg TID PO Last administered on 03/05/16 08:20 ; Admin Dose 400 MG; Start 03/04/16 at 15:06 Piroxicam 20 mg 20 mg DAILY PO Last administered on 03/05/16 08:20; Admin Dose 20 MG; Start 03/05/16 at 09:00 Levofloxacin/ Dextrose (Levaquin 500mg/ D5W 100 ml (Pmx)) 100 ml @ 100 mls/hr Q48H IVPB Last administered on 03/04/16 16:02; Admin Dose 100 MLS/HR; Start at 15:30 DAKOTAH CARRANZA Mar 05, 2016 10:59
--- NOTE | 2016-03-05 11:59 | CARRPT ---
DATE OF PROCEDURE: 03/05/2016 PROCEDURE: Lexiscan Cardiolite stress test electrocardiogram portion. INDICATION: Positive troponin, assess significance. BASELINE VITAL SIGNS AND ELECTROCARDIOGRAM: Pulse of 87, blood pressure 122/64. Electrocardiogram reveals sinus rhythm, rate 87 with first degree AV block, lateral T-wave inversion. PROCEDURE: The patient underwent standard Lexiscan infusion per protocol over 10 seconds followed b y radiolabeled tracer. The patient's test was stopped due to completion of protocol. Maximal achie gina blood pressure during the test of 113/58. Maximal achieved heart rate during the test 114. ELECTROCARDIOGRAM FINDINGS: The patient during Lexiscan infusion developed lateral biphasic T-wave abnormalities which returned to normal during recovery. No documented PVCs. SYMPTOMS: The patient had complaints of chest pain and mild shortness of breath during stress test that resolved in recovery. IMPRESSION: 1. Lexiscan-induced ST-T wave changes from baseline abnormalities that are suggestive but nondiagno stic for cardiac ischemia. 2. Complaints of chest pain, shortness of breath during stress test that resolved in recovery. 3. No documented premature ventricular contractions during stress testing. 4. Report of nuclear images to follow in separate dictation. Dictated By: DAKOTAH BENÍTEZ/DELGADO Conf#: [id number] DID#: [id number] CC: AMBROSE RENEE MD;*End*
[2016-03-05] MEDS: ASPIRIN (EC) 81 MG TAB PO SCH (13:08)
--- NOTE | 2016-03-05 13:48 | PN ---
Date/Time of Note Date/Time of Note DATE: 03/05/16 TIME: 13:14 Assessment/Plan VTE Prophylaxis VTE Prophylaxis Intervention: SCD's Lines/Catheters IV Catheter Type (from Nrs): Peripheral IV Urinary Cath still in place: Yes Reason Cath still needed: other (indicate) (RHIANNA, monitor UOP ) Assessment/Plan Assessment/Plan 60 yo female with : 1. Right hip fracture status post fall which seems to be more as accidental. Appreciate recommendations from Dr Fuentes Completing cardiac work up pre op Leukocytosis resolved and cx pending, continue Levaquin 2. Acute kidney injury, with mild rhabdomyolysis Total CK trending down, continue IVF Renal ultrasound wnl Pelaez catheter is in place. Continue to monitor urine output. 3. Mildly elevated troponin in setting of Mild rhabdomyolysis, appreciate Cardiology recommendations, continue current meds including ASA and awaiting final cardiac stress test results 4. Hypertension: Meds on hold. IVF and resume meds if needed 5. Chronic hyponatremia. Her baseline sodium level is in 130's. Continue IV fluids for now and monitor her sodium level. 6. Seizure disorder. Continue outpatient medications. 7. Chronic pain, narcotic dependent. Continue current pain medications, including prn Morphine. 8. Leukocytosis, unclear etiology, resolved. All cx NGTD for now, continue Levaquin for now. Prophylaxis: Sequential compression devices to lower extremity for DVT prophylaxis, may convert to Lovenox once we know timing for surgery. Protonix for GI prophylaxis. DISPOSITION: Orthopedic surgery and cardiology following. Stress test resuts pending. Subjective 24 Hr Interval Summary Free Text/Dictation Appreciate Cardiology and orthopedic surgery recommendations Stress test Exam/Review of Systems Vital Signs Vitals Vital Signs Date Time Temp Pulse Resp B/P Pulse Ox O2 Delivery O2 Flow Rate FiO2 03/05/16 12:00 98.2 93 18 130/58 95 03/05/16 02:19 Room Air Intake and Output 03/04/16 03/04/16 03/05/16 15:00 23:00 07:00 Intake Total 600 ml 1340 ml Output Total 150 ml 750 ml Balance 450 ml 590 ml Exam Constitutional: alert, frail, oriented Respiratory: clear to auscultation, normal air movement Cardiovascular: nl pulses, regular rate and rhythm Gastrointestinal: non-tender, soft Musculoskeletal: nl extremities to inspection Extremities: normal pulses, other (no edema, clubbing or cyanosis ) Neurological: [employer] II-XII intact, nl mental status, nl speech, nl strength Results Result Diagram: 03/05/16 0615 03/05/16 0615 Results 24 hrs Laboratory Tests Test 03/04/16 15:45 03/04/16 17:05 03/04/16 21:32 03/05/16 06:15 Creatine Kinase 2460 H 2401 H 1567 H Activated Partial Thromboplast Time 25.5 INR International Normalized Ratio 1.12 Prothrombin Time 14.4 H Prothrombin Time Ratio 1.1 Creatine Kinase Index 1.1 1.2 Creatinine Kinase MB (Mass) 26.20 H 18.70 H Troponin I 0.296 *H 0.266 *H Alanine Aminotransferase (ALT/SGPT) 41 Albumin 2.7 L Albumin/Globulin Ratio 1.08 Alkaline Phosphatase 73 Anion Gap 16 Aspartate Amino Transf (AST/SGOT) 84 H B-Type Natriuretic Peptide 622 H Basophils # 0.0 Basophils % 0.1 Blood Urea Nitrogen 38 H Calcium Level 8.4 Carbon Dioxide Level 17 L Chloride Level 105 Cholesterol Level 127 Cholesterol/HDL Ratio 4.3 Creatinine 1.17 #H Direct Bilirubin 0.00 Eosinophils # 0.0 Eosinophils % 0.2 Globulin 2.50 Glucose Level 69 #L HDL Cholesterol 29 L Hematocrit 29.5 L Hemoglobin 10.1 L Indirect Bilirubin 0.2 LDL Cholesterol, Calculated 79 Lymphocytes # 0.9 Lymphocytes % 8.3 L Magnesium Level 2.0 Mean Corpuscular Hemoglobin 33.7 H Mean Corpuscular Hemoglobin Concent 34.3 Mean Corpuscular Volume 98.3 Mean Platelet Volume 7.4 Monocytes # 1.1 H Monocytes % 10.1 Neutrophils # 8.8 H Neutrophils % 81.3 H Nucleated Red Blood Cells # 0.0 Nucleated Red Blood Cells % 0.0 Platelet Count 230 Potassium Level 4.7 Red Blood Count 3.00 L Red Cell Distribution Width 13.4 Sodium Level 133 L Total Bilirubin 0.2 Total Protein 5.2 L Triglycerides Level 93 White Blood Count 10.8 # Medications Medications Current Medications Hydroxychloroquine Sulfate (Plaquenil) 200 mg BID PO Last administered on 08:20; Admin Dose 200 MG; Start 03/04/16 at 21:00 Levetiracetam 1000 mg 1,000 mg BID PO Last administered on 1/20/17at 08:20; Admin Dose 1,000 MG; Start 03/04/16 at 21:00 Sodium Chloride (NS) 1,000 ml @ 100 mls/hr Q10H IV Last administered on 03:00; Admin Dose 100 MLS/HR; Start 03/04/16 at 14:38 Ondansetron HCl (Zofran Inj) 4 mg Q6H PRN IV NAUSEA AND/OR VOMITING; Start at 15:00 Acetaminophen (Tylenol Tab) 650 mg Q6H PRN PO PAIN LEVEL 1-3 OR FEVER; Start at 15:00 Acetaminophen/ Hydrocodone Bitart ([place] (5/325)) 1 tab Q6H PRN PO PAIN LEVEL 4 -6 Last administered on 03/04/16 17:13; Admin Dose 1 TAB; Start 03/04/16 at 15: 00 Acetaminophen/ Hydrocodone Bitart ([place] (5/325)) 2 tab Q6H PRN PO PAIN LEVEL 7 -10; Start 03/04/16 at 15:00 Morphine Sulfate (morphine) 2 mg Q4H PRN IV PAIN LEVEL 7-10 Last administered on 03/05/16 03:00; Admin Dose 2 MG; Start 03/04/16 at 15:00 Docusate Sodium (Colace) 100 mg Q12H PRN PO CONSTIPATION; Start 03/04/16 at 15: 00 Magnesium Hydroxide (Milk Of Mag) 30 ml DAILY PRN PO CONSTIPATION; Start at 15:00 Bisacodyl (Dulcolax Supp) 10 mg DAILY PRN [place] CONSTIPATION; Start 03/04/16 at 15 :00 Pantoprazole (Protonix Tab) 40 mg DAILY@06 PO Last administered on 03/05/16 05 :51; Admin Dose 40 MG; Start 03/05/16 at 06:00 Carbamazepine (Tegretol Xr) 400 mg TID PO Last administered on 03/05/16 13:09 ; Admin Dose 400 MG; Start 03/04/16 at 15:06 Piroxicam 20 mg 20 mg DAILY PO Last administered on 03/05/16 08:20; Admin Dose 20 MG; Start 03/05/16 at 09:00 Levofloxacin/ Dextrose (Levaquin 500mg/ D5W 100 ml (Pmx)) 100 ml @ 100 mls/hr Q48H IVPB Last administered on 03/04/16 16:02; Admin Dose 100 MLS/HR; Start at 15:30 Aspirin (Halfprin) 81 mg DAILY PO Last administered on 03/05/16 13:08; Admin Dose 81 MG; Start 03/05/16 at 11:00 Procedures Procedures Echocardiogram Report Patient Name: LISHA CAPONE Gender: Female Date: 1955 Study Date: 04-Mar-2016 Eap Specialist: Fazal Roberson RDCS Location: [id number] Ref. Physician: OSCAR RENEE Quality: Good Procedures: Transthoracic echocardiogram with complete 2D, M-Mode, and doppler examination. Indications: Pre-op. 2D/M Mode Doppler Measurement Value Normal Ranges Measurement Value Normal Ranges LVIDd 2D 3.6 3.5 - 5.6 cm AV Peak Heron 1.8 m/sec LVIDs 2D 1.8 2.1 - 4.1 cm AV Peak PG 13.0 mmHg FS 2D 49.9 % LVOT Peak Heron 1.5 m/sec LVPWd 2D 1.0 0.6 - 1.1 cm LVOT Peak PG 9.0 mmHg IVSd 2D 1.1 0.6 - 1.1 cm MV E Peak Heron 0.6 m/sec IVS/LVPW 2D 1.2 MV A Peak Heron 0.9 m/sec AoR Diam 2D 3.0 2.0 - 3.7 cm MV E/A 0.6 LA/Ao 2D 1 0 - 1 MV Decel Time 268 msec EDV 2D 45.5 cm3 MV E/A 0.6 ESV 2D 5.7 cm3 LA Dimen 2D 2.5 2.3 - 4.0 cm Findings Left Ventricle: Hyperdynamic left ventricular systolic function. Normal left ventricular cavity size. Mild concentric left ventricular hypertrophy. Ejection fraction is visually estimated at >65 %. Tissue Doppler/Mitral Doppler indices are consistent with impaired relaxation (Stage I diastolic dysfunction). Right Ventricle: Normal right ventricular size. Normal right ventricular systolic function. Left Atrium: The left atrium is normal in size. Right Atrium: The right atrium is normal in size. Mitral Valve: Mild mitral leaflet calcification. Mild mitral annular calcification. Trace mitral regurgitation. Aortic Valve: No significant aortic stenosis or insufficiency. Aortic cusps appear mildly calcified. Tricuspid Valve: Normal appearance of the tricuspid valve. Unable to obtain RVSP due to minimal presence of tricuspid regurgitation. Pericardium: Trivial pericardial effusion. Aorta: Normal aortic root. IVC: Normal size and normal respiratory collapse consistent with normal right atrial pressure. Conclusions 1. Hyperdynamic left ventricular systolic function. Normal left ventricular cavity size. Mild concentric left ventricular hypertrophy. Ejection fraction is visually estimated at >65 %. Tissue Doppler/Mitral Doppler indices are consistent with impaired relaxation (Stage I diastolic dysfunction). 2. Mild mitral leaflet calcification. Mild mitral annular calcification. Trace mitral regurgitation. 3. Normal appearance of the tricuspid valve. Unable to obtain RVSP due to minimal presence of tricuspid regurgitation. 4. Trivial pericardial effusion. Electronically Signed By: James Noe 04-Mar-2016 17:40:19 -0800 AMBROSE RENEE Mar 05, 2016 13:25
--- NOTE | 2016-03-05 14:53 | RADRPT ---
PROCEDURE: Nuclear medicine myocardial stress and rest scan. CLINICAL INDICATION: Chest pain. TECHNIQUE: The patient was stressed with 0.4 mg IV Lexiscan. 10.5 mCi technetium 99m Tetrofosmin (Myoview) was administered rest. 30.1 mCi technetium 99m Tetrofosmin (Myoview) was administered du ring stress. Images were obtained and reconstructed in the short axis, horizontal long axis, and ve rtical long axis. Gated images were obtained and ejection fraction was calculated. COMPARISON: No prior study is available for comparison. FINDINGS: The stress and rest images demonstrate normal uptake throughout. There is no fixed abnormality or r eversible abnormality. There is no evidence of transient ischemic dilatation. Wall motion is normal. There is normal wall thickening during systole. Ejection fraction at stress is 72%. IMPRESSION: 1. No evidence of stress induced myocardial ischemia. 2. Ejection fraction at stress is 72%. RPTAT: QQ .Abdirashid Kothari MD, MD Date Time Electronically viewed and signed by .Abdirashid Kothari MD, on 03/05/2016 14:53 .R/
[2016-03-05] MEDS: LORATADINE 10 MG TAB PO SCH (16:02)
--- NOTE | 2016-03-05 16:21 | RADRPT ---
Vent Rate: 82 bpm RR Interval: 0 msec MI Interval: 202 msec QRS Duration: 88 msec QT Interval: 366 msec QTC Interval: 427 msec P-R-T [place]: 77 - 62 - 95 degrees Normal sinus rhythm Nonspecific ST and T wave abnormality Abnormal ECG Electronically Signed By: Pj Olivo [id number]
[2016-03-05] MEDS: D5W-0.45 NACL + KCL 20 MEQ 1,000 ML IV SCH (17:19)
[2016-03-06] VITALS (25 sets, daily range): BP systolic 127–195; BP diastolic 68–88; PULSE 70–91; RESP 15–29
[2016-03-06] MEDS: PANTOPRAZOLE (EC) 40 MG TAB PO SCH (06:00)
[2016-03-06] MEDS: D5W-0.45 NACL + KCL 20 MEQ 1,000 ML IV SCH (06:14)
[2016-03-06] MEDS ORDERED: CEFAZOLIN 1 GM INJ ONE (07:00)
[2016-03-06 07:02] LABS: BASOPHILS % 0.5 % (0.0-2.0); EOSINOPHILS # 0.1 10^3/ul (0.0-0.5); EOSINOPHILS % 0.9 % (0.0-7.0); HEMATOCRIT 24.7 % (37.0-47.0); HEMOGLOBIN 8.6 g/dl (12.0-16.0); LYMPHOCYTES % 17.6 % (15.0-51.0); MEAN CORPUSCULAR HEMOGLOBIN 33.8 pg (29.0-33.0); MEAN CORPUSCULAR HGB CONC 34.6 g/dl (32.0-37.0); MEAN CORPUSCULAR VOLUME 97.6 fl (82.0-101.0); MEAN PLATELET VOLUME 7.6 fl (7.4-10.4); MONOCYTE # 0.6 10^3/ul (0.3-0.9); MONOCYTES % 10.4 % (0.0-11.0); NEUTROPHIL # 4.1 10^3/ul (1.6-7.5); NEUTROPHILS % 70.6 % (39.0-77.0); PLATELET COUNT 220 10^3/UL (140-440); RED BLOOD COUNT 2.53 10^6/ul (4.20-5.40); RED CELL DISTRIBUTION WIDTH 13.6 % (11.5-14.5); UNCORRECTED WBC 5.8 10^3/ul (4.8-10.8); WHITE BLOOD COUNT 5.8 10^3/ul (4.8-10.8)
[2016-03-06 07:11] LABS: CONDITION 1
[2016-03-06 07:24] LABS: POTASSIUM 4.1 mmol/L (3.5-5.1)
[2016-03-06 07:27] LABS: CREATININE 0.61 mg/dl (0.44-1.00)
[2016-03-06 07:28] LABS: CALCIUM 7.8 mg/dl (8.4-10.2)
[2016-03-06 08:16] LABS: CK-MB 5.29 ng/ml (0.0-2.4)
[2016-03-06 08:23] LABS: TROPONIN-I 0.229 ng/ml (0.00-0.12)
[2016-03-06 08:44] LABS: MAGNESIUM 1.5 mg/dl (1.7-2.5); PHOSPHORUS 2.3 mg/dl (2.5-4.9)
[2016-03-06] MEDS: LORATADINE 10 MG TAB PO SCH ×2 (09:00→18:27)
[2016-03-06] MEDS: HYDROXYCHLOROQUINE 200 MG TAB PO SCH ×2 (09:00→22:15)
[2016-03-06] MEDS: PIROXICAM 10 MG CAP PO SCH (09:00)
[2016-03-06] MEDS: LEVETIRACETAM 500 MG TAB PO SCH ×2 (09:00→22:15)
[2016-03-06] MEDS: ASPIRIN (EC) 81 MG TAB PO SCH (09:00)
[2016-03-06] MEDS: carBAMAZepine (XR) 100 MG TABSR PO SCH ×3 (09:00→22:16)
[2016-03-06] MEDS ORDERED: POLYMYXIN/BACITRACIN 1L IRRIG ONE (09:42)
[2016-03-06] MEDS ORDERED: MIDAZOLAM 1 MG/ML 2 ML INJ ONE (09:57)
[2016-03-06] MEDS ORDERED: ONDANSETRON 4 MG INJ IV PRN (11:30)
[2016-03-06] MEDS ORDERED: LABETALOL HCL 20MG INJ IV PRN (11:30)
[2016-03-06] MEDS ORDERED: MEPERIDINE 25 MG INJ IV PRN (11:30)
[2016-03-06] MEDS ORDERED: FENTAnyl 50 MCG/ML VIAL IV PRN (11:30)
[2016-03-06] MEDS ORDERED: HYDROmorphONE (0.2 MG/ML) 10ML SYG IV PRN (11:30)
[2016-03-06] MEDS ORDERED: DIPHENHYDRAMINE 50 MG INJ IV PRN (11:30)
[2016-03-06] MEDS ORDERED: ONDANSETRON 4 MG INJ ONE (11:44)
[2016-03-06] MEDS ORDERED: NEOSTIGMINE 3 MG/3 ML SYRINGE ONE (11:50)
[2016-03-06] MEDS ORDERED: ROCURONIUM 50 MG INJ ONE (11:50)
[2016-03-06] MEDS ORDERED: LIDOCAINE 2% (SDV) 5 ML INJ ONE (11:50)
[2016-03-06] MEDS ORDERED: GLYCOPYRROLATE 0.4 MG INJ ONE (11:50)
[2016-03-06] MEDS ORDERED: ETOMIDATE 20 MG INJ ONE (11:50)
--- NOTE | 2016-03-06 11:58 | CONS ---
Date/Time of Note Date/Time of Note DATE: 03/06/16 TIME: 11:56 Assessment/Plan Assessment/Plan Additional Assessment/Plan Status post fall with Hip fracture, intertrochanteric fracture of hip. Abnormal electrocardiogram with nonspecific ST and T abnormalities, left ventricular hypertrophy. Anemia. Renal failure. Stress Test no ischemia Echo preserved systolic function Cleared for surgery Consultation Date/Type/Reason Admit Date/Time Mar 04, 2016 at 12:54 Psychological: no complaints Social History Smoking Status: Current every day smoker Exam/Review of Systems Vital Signs Vitals Vital Signs Date Time Temp Pulse Resp B/P Pulse Ox O2 Delivery O2 Flow Rate FiO2 03/06/16 08:06 89 03/06/16 07:46 98.2 18 151/80 97 03/05/16 02:19 Room Air Intake and Output 03/05/16 03/05/16 03/06/16 15:00 23:00 07:00 Intake Total 860 ml 2075 ml Output Total 800 ml 800 ml Balance 60 ml 1275 ml Exam Constitutional: alert, oriented Head: atraumatic, normocephalic Respiratory: clear to auscultation Cardiovascular: regular rate and rhythm Gastrointestinal: nl liver, spleen, non-tender, soft Extremities: normal pulses Results Result Diagram: 03/06/16 0545 03/06/16 0545 Results 24 hrs Laboratory Tests Test 03/06/16 05:45 Anion Gap 11 Basophils # 0.0 Basophils % 0.5 Blood Urea Nitrogen 19 # Calcium Level 7.8 L Carbon Dioxide Level 23 Chloride Level 101 Creatine Kinase 710 #H Creatine Kinase Index 0.7 Creatinine 0.61 Creatinine Kinase MB (Mass) 5.29 H Eosinophils # 0.1 Eosinophils % 0.9 Glucose Level 92 Hematocrit 24.7 L Hemoglobin 8.6 L Lymphocytes # 1.0 Lymphocytes % 17.6 Magnesium Level 1.5 L Mean Corpuscular Hemoglobin 33.8 H Mean Corpuscular Hemoglobin Concent 34.6 Mean Corpuscular Volume 97.6 Mean Platelet Volume 7.6 Monocytes # 0.6 Monocytes % 10.4 Neutrophils # 4.1 Neutrophils % 70.6 Nucleated Red Blood Cells # 0.0 Nucleated Red Blood Cells % 0.0 Phosphorus Level 2.3 L Platelet Count 220 Potassium Level 4.1 Red Blood Count 2.53 L Red Cell Distribution Width 13.6 Sodium Level 131 L Troponin I 0.229 *H White Blood Count 5.8 # Medications Medications Current Medications Hydroxychloroquine Sulfate (Plaquenil) 200 mg BID PO Last administered on 20:41; Admin Dose 200 MG; Start 03/04/16 at 21:00 Levetiracetam (Keppra) 1,000 mg BID PO Last administered on 03/05/16 20:41; Admin Dose 1,000 MG; Start 03/04/16 at 21:00 Ondansetron HCl (Zofran Inj) 4 mg Q6H PRN IV NAUSEA AND/OR VOMITING; Start at 15:00 Acetaminophen (Tylenol Tab) 650 mg Q6H PRN PO PAIN LEVEL 1-3 OR FEVER; Start at 15:00 Acetaminophen/ Hydrocodone Bitart ([place] (5/325)) 1 tab Q6H PRN PO PAIN LEVEL 4 -6 Last administered on 03/04/16 17:13; Admin Dose 1 TAB; Start 03/04/16 at 15: 00 Acetaminophen/ Hydrocodone Bitart ([place] (5/325)) 2 tab Q6H PRN PO PAIN LEVEL 7 -10; Start 03/04/16 at 15:00 Morphine Sulfate (morphine) 2 mg Q4H PRN IV PAIN LEVEL 7-10 Last administered on 03/05/16 23:09; Admin Dose 2 MG; Start 03/04/16 at 15:00 Docusate Sodium (Colace) 100 mg Q12H PRN PO CONSTIPATION; Start 03/04/16 at 15: 00 Magnesium Hydroxide (Milk Of Mag) 30 ml DAILY PRN PO CONSTIPATION; Start at 15:00 Bisacodyl (Dulcolax Supp) 10 mg DAILY PRN [place] CONSTIPATION; Start 03/04/16 at 15 :00 Pantoprazole (Protonix Tab) 40 mg DAILY@06 PO Last administered on 03/05/16 05 :51; Admin Dose 40 MG; Start 03/05/16 at 06:00 Carbamazepine (Tegretol Xr) 400 mg TID PO Last administered on 03/05/16 20:41 ; Admin Dose 400 MG; Start 03/04/16 at 15:06 Piroxicam ([place]ene) 20 mg DAILY PO Last administered on 03/05/16 08:20; Admin Dose 20 MG; Start 03/05/16 at 09:00 Aspirin 81 mg 81 mg DAILY PO Last administered on 03/05/16 13:08; Admin Dose 81 MG; Start 03/05/16 at 11:00 Levofloxacin/ Dextrose (Levaquin 250 Mg/ D5W 50 ml (Pmx)) 50 ml @ 50 mls/hr Q24H IVPB ; Start 03/06/16 at 16:00 Loratadine 10 mg 10 mg DAILY PO Last administered on 03/05/16 16:02; Admin Dose 10 MG; Start 03/05/16 at 15:30 Potassium Chloride/Dextrose/ Sod Cl 1,000 ml @ 75 mls/hr [id number] IV Last administered on 03/06/16 06:14; Admin Dose 75 MLS/HR; Start 03/05/16 at 17:30 Magnesium Sulfate (Magnesium Sulfate 2 Gm/50 ml) 50 ml @ 25 mls/hr ONCE ONCE IVPB ; Start 03/06/16 at 12:00; Stop 03/06/16 at 13:59 JENNIFER DODD M.D. Mar 06, 2016 11:58
[2016-03-06] MEDS ORDERED: MAGNESIUM SULFATE 2 GM/50 ML 50 ML IVPB ONE (12:00)
[2016-03-06] MEDS: HYDROmorphONE (0.2 MG/ML) 10ML SYG IV PRN ×2 (12:12→12:41)
[2016-03-06] MEDS ORDERED: KETOROLAC 30 MG INJ IV PRN (13:00)
[2016-03-06] MEDS ORDERED: HYDROCODONE/APAP (5/325) TAB PO PRN (13:00)
[2016-03-06] MEDS: SOD CHLORIDE 0.9% 1,000 ML IV SCH ×2 (13:14→22:17)
[2016-03-06] MEDS: CEFAZOLIN 1 GM/50 ML (PMX) 50 ML IVPB SCH ×2 (14:40→22:16)
--- NOTE | 2016-03-06 15:27 | PN ---
Date/Time of Note Date/Time of Note DATE: 03/06/16 TIME: 15:13 Assessment/Plan VTE Prophylaxis VTE Prophylaxis Intervention: SCD's Lines/Catheters IV Catheter Type (from Nrs): Peripheral IV Urinary Cath still in place: Yes Reason Cath still needed: other (indicate) (monitor UOP) Assessment/Plan Assessment/Plan 60 yo female with : 1. Right hip fracture status post fall which seems to be more as accidental. Stress test negative and patient did proceed with Right TKA today PT to start when OK with surgery 2. Acute kidney injury, with mild rhabdomyolysis Total CK trending down, continue IVF for now Renal ultrasound wnl Pelaez catheter is in place, to be removed tomorrow. Continue to monitor urine output. 3. Mildly elevated troponin in setting of Mild rhabdomyolysis, appreciate Cardiology recommendations, continue current meds including ASA and awaiting final cardiac stress test results 4. Hypertension: Resuming meds slowly. 5. Chronic hyponatremia. Her baseline sodium level is in 130's. Continue IV fluids for now and monitor her sodium level. 6. Seizure disorder. Continue outpatient medications. 7. Chronic pain, narcotic dependent. Continue current pain medications, including prn Morphine. 8. Leukocytosis, unclear etiology, resolved. Blood cx 1/2 with ? gram positive rods ... ? contaminant Repeat blood cx Continue Levaquin for now. Prophylaxis: Sequential compression devices to lower extremity for DVT prophylaxis, may convert to Lovenox or other form of DVT ppx by POD#1 if OK with ortho. Protonix for GI prophylaxis. DISPOSITION: Orthopedic surgery and cardiology following. Subjective 24 Hr Interval Summary Free Text/Dictation Patient doing OK post op. Remains hemodynamically stable F/u labs in AM Exam/Review of Systems Vital Signs Vitals Vital Signs Date Time Temp Pulse Resp B/P Pulse Ox O2 Delivery O2 Flow Rate FiO2 03/06/16 13:11 97.9 74 20 155/74 94 03/06/16 12:21 Room Air 03/06/16 12:01 8.0 Intake and Output 03/05/16 03/05/16 03/06/16 15:00 23:00 07:00 Intake Total 860 ml 2075 ml Output Total 800 ml 800 ml Balance 60 ml 1275 ml Exam Constitutional: alert, oriented, well developed Respiratory: clear to auscultation, normal air movement Cardiovascular: nl pulses, regular rate and rhythm Gastrointestinal: non-tender, soft Musculoskeletal: nl extremities to inspection Extremities: normal pulses, other (no edema, clubbing or cyanosis ) Results Result Diagram: 03/06/16 0545 03/06/16 0545 Results 24 hrs Laboratory Tests Test 03/06/16 05:45 Anion Gap 11 Basophils # 0.0 Basophils % 0.5 Blood Urea Nitrogen 19 # Calcium Level 7.8 L Carbon Dioxide Level 23 Chloride Level 101 Creatine Kinase 710 #H Creatine Kinase Index 0.7 Creatinine 0.61 Creatinine Kinase MB (Mass) 5.29 H Eosinophils # 0.1 Eosinophils % 0.9 Glucose Level 92 Hematocrit 24.7 L Hemoglobin 8.6 L Lymphocytes # 1.0 Lymphocytes % 17.6 Magnesium Level 1.5 L Mean Corpuscular Hemoglobin 33.8 H Mean Corpuscular Hemoglobin Concent 34.6 Mean Corpuscular Volume 97.6 Mean Platelet Volume 7.6 Monocytes # 0.6 Monocytes % 10.4 Neutrophils # 4.1 Neutrophils % 70.6 Nucleated Red Blood Cells # 0.0 Nucleated Red Blood Cells % 0.0 Phosphorus Level 2.3 L Platelet Count 220 Potassium Level 4.1 Red Blood Count 2.53 L Red Cell Distribution Width 13.6 Sodium Level 131 L Troponin I 0.229 *H White Blood Count 5.8 # Medications Medications Current Medications Hydroxychloroquine Sulfate (Plaquenil) 200 mg BID PO Last administered on 20:41; Admin Dose 200 MG; Start 03/04/16 at 21:00 Levetiracetam (Keppra) 1,000 mg BID PO Last administered on 03/05/16 20:41; Admin Dose 1,000 MG; Start 03/04/16 at 21:00 Ondansetron HCl (Zofran Inj) 4 mg Q6H PRN IV NAUSEA AND/OR VOMITING; Start at 15:00 Acetaminophen (Tylenol Tab) 650 mg Q6H PRN PO PAIN LEVEL 1-3 OR FEVER; Start at 15:00 Acetaminophen/ Hydrocodone Bitart ([place] (5/325)) 1 tab Q6H PRN PO PAIN LEVEL 4 -6 Last administered on 03/04/16 17:13; Admin Dose 1 TAB; Start 03/04/16 at 15: 00 Acetaminophen/ Hydrocodone Bitart ([place] (5/325)) 2 tab Q6H PRN PO PAIN LEVEL 7 -10; Start 03/04/16 at 15:00 Morphine Sulfate (morphine) 2 mg Q4H PRN IV PAIN LEVEL 7-10 Last administered on 03/05/16 23:09; Admin Dose 2 MG; Start 03/04/16 at 15:00 Docusate Sodium (Colace) 100 mg Q12H PRN PO CONSTIPATION; Start 03/04/16 at 15: 00 Magnesium Hydroxide (Milk Of Mag) 30 ml DAILY PRN PO CONSTIPATION; Start at 15:00 Bisacodyl (Dulcolax Supp) 10 mg DAILY PRN [place] CONSTIPATION; Start 03/04/16 at 15 :00 Pantoprazole (Protonix Tab) 40 mg DAILY@06 PO Last administered on 03/05/16 05 :51; Admin Dose 40 MG; Start 03/05/16 at 06:00 Carbamazepine (Tegretol Xr) 400 mg TID PO Last administered on 03/06/16 13:40 ; Admin Dose 400 MG; Start 03/04/16 at 15:06 Piroxicam 20 mg 20 mg DAILY PO Last administered on 03/05/16 08:20; Admin Dose 20 MG; Start 03/05/16 at 09:00 Levofloxacin/ Dextrose (Levaquin 250 Mg/ D5W 50 ml (Pmx)) 50 ml @ 50 mls/hr Q24H IVPB ; Start 03/06/16 at 16:00 Loratadine 10 mg 10 mg DAILY PO Last administered on 03/05/16 16:02; Admin Dose 10 MG; Start 03/05/16 at 15:30 Sodium Chloride (NS) 1,000 ml @ 100 mls/hr Q10H IV Last administered on 13:14; Admin Dose 100 MLS/HR; Start 03/06/16 at 13:00 Aspirin (Aspirin) 325 mg BID PO ; Start 03/06/16 at 21:00; Stop 04/17/16 at 09:01 Ketorolac Tromethamine (Toradol) 30 mg Q6H PRN IV PAIN; Start 03/06/16 at 13:00 ; Stop 03/09/16 at 12:59 Acetaminophen/ Hydrocodone Bitart 1 tab 1 tab Q6H PRN PO PAIN; Start 03/06/16 at 13:00 Cefazolin Sodium (Ancef 1 Gm/50 ml (Pmx)) 50 ml @ 100 mls/hr Q8 IVPB Last administered on 03/06/16t 14:40; Admin Dose 100 MLS/HR; Start 03/06/16 at 14:00 ; Stop 03/06/16 at 22:29 AMBROSE RENEE Mar 06, 2016 15:23
[2016-03-06] MEDS: LEVOFLOXACIN 250MG/D5W (PMX) 50 ML IVPB SCH (16:05)
[2016-03-06] MEDS: morphine 2 MG INJ IV PRN (18:18)
--- NOTE | 2016-03-06 21:22 | RADRPT ---
PROCEDURE: XR Knee. CLINICAL INDICATION: S/P RT HIP ORIF TECHNIQUE: AP, lateral and oblique view of the right knee were obtained. The images reviewed on a PACS workstation. COMPARISON: 03/04/2016 FINDINGS: There are placement of right femoral intramedullary roselyn with lower supports. Transverse and distal femoral diaphysis. Postoperative changes of the anterior medial upper light distally. No acute fra cture or dislocation. The alignment of the femorotibial and patellofemoral joints appears normal. N o joint space narrowing is seen. No evidence of effusion or soft tissue swelling is present. IMPRESSION: Unremarkable examination of the right knee. Intramedullary femoral roselyn in place as described above. RPTAT:AAJJ Physician Maximiliano Date Time Electronically viewed and signed by Physician Maximiilano on 03/06/2016 21:22 ALLA/
--- NOTE | 2016-03-06 21:24 | RADRPT ---
PROCEDURE: XR Hip. CLINICAL INDICATION: S/P RT HIP ORIF TECHNIQUE: AP and frog lateral views of the right hip were performed. COMPARISON: 03/04/2016 at x-ray. FINDINGS: Right intramedullary roselyn and hip nail in place traversing right intertrochanteric hip fracture. The femoral head demonstrates normal anatomic articulation with the acetabulum. No new fracture or osse ous lesion is identified. Intact right intramedullary roselyn.. The soft tissues are unremarkable. The p kendall is grossly intact. IMPRESSION: The right hip male intramedullary roselyn in place for fixation of comminuted intertrochanteric right hi p fracture. RPTAT:AAJJ. Physician Maximiliano Date Time Electronically viewed and signed by Physician Maximiliano on 03/06/2016 21:24 ALLA/
--- NOTE | 2016-03-06 21:27 | RADRPT ---
PROCEDURE: Fluoroscopy. CLINICAL INDICATION: Intraoperative fluoroscopic guidance right intertrochanteric hip fracture repa ir. TECHNIQUE: Fluoroscopic guidance provided for intraoperative procedure. COMPARISON: 03/04/2016 FINDINGS: 80 seconds fluoroscopy time was used. 17 intraoperative spot radiographs obtained. IMPRESSION: Fluoroscopic guidance provided for intraoperative procedure. RPTAT:AAJJ Surjit Hale Physician Date Time Electronically viewed and signed by Physician Maximiliano on 03/06/2016 21:27 ALLA/
[2016-03-06] MEDS: ASPIRIN 325 MG TAB PO SCH (22:15)
[2016-03-07] VITALS (13 sets, daily range): BP systolic 141–165; BP diastolic 68–81; PULSE 85–105; RESP 18–20
[2016-03-07] MEDS: PANTOPRAZOLE (EC) 40 MG TAB PO SCH (06:54)
[2016-03-07 07:17] LABS: BASOPHILS % 0.6 % (0.0-2.0); EOSINOPHILS % 0.6 % (0.0-7.0); HEMATOCRIT 22.6 % (37.0-47.0); HEMOGLOBIN 7.9 g/dl (12.0-16.0); LYMPHOCYTES # 0.8 10^3/ul (0.8-2.9); LYMPHOCYTES % 14.6 % (15.0-51.0); MEAN CORPUSCULAR HGB CONC 34.9 g/dl (32.0-37.0); MEAN CORPUSCULAR VOLUME 97.5 fl (82.0-101.0); MEAN PLATELET VOLUME 7.6 fl (7.4-10.4); MONOCYTE # 0.7 10^3/ul (0.3-0.9); MONOCYTES % 12.4 % (0.0-11.0); NEUTROPHIL # 3.8 10^3/ul (1.6-7.5); NEUTROPHILS % 71.8 % (39.0-77.0); PLATELET COUNT 220 10^3/UL (140-440); RED BLOOD COUNT 2.32 10^6/ul (4.20-5.40); RED CELL DISTRIBUTION WIDTH 13.7 % (11.5-14.5); UNCORRECTED WBC 5.3 10^3/ul (4.8-10.8); WHITE BLOOD COUNT 5.3 10^3/ul (4.8-10.8)
[2016-03-07 07:29] LABS: CONDITION 1; LH ANALYZER COMMENTS 1
[2016-03-07 07:30] LABS: CK-MB 3.03 ng/ml (0.0-2.4)
[2016-03-07 07:34] LABS: TROPONIN-I 0.152 ng/ml (0.00-0.12)
[2016-03-07 07:39] LABS: MAGNESIUM 1.5 mg/dl (1.7-2.5); PHOSPHORUS 2.9 mg/dl (2.5-4.9)
[2016-03-07 07:47] LABS: ALBUMIN 2.1 g/dl (3.3-4.9)
[2016-03-07 07:50] LABS: ALBUMIN/GLOBULIN RATIO 0.95; BILIRUBIN,INDIRECT 0.2 mg/dl (0-1.1); BILIRUBIN,TOTAL 0.2 mg/dl (0.2-1.3); CREATININE 0.48 mg/dl (0.44-1.00); TOTAL PROTEIN 4.3 g/dl (6.1-8.1)
[2016-03-07 07:51] LABS: CALCIUM 7.5 mg/dl (8.4-10.2)
[2016-03-07] MEDS: SOD CHLORIDE 0.9% 1,000 ML IV SCH ×2 (08:34→19:39)
[2016-03-07] MEDS: LORATADINE 10 MG TAB PO SCH (08:35)
[2016-03-07] MEDS: PIROXICAM 10 MG CAP PO SCH (08:35)
[2016-03-07] MEDS: ASPIRIN 325 MG TAB PO SCH ×2 (08:35→21:20)
[2016-03-07] MEDS: HYDROXYCHLOROQUINE 200 MG TAB PO SCH ×2 (08:35→21:22)
[2016-03-07] MEDS: carBAMAZepine (XR) 100 MG TABSR PO SCH ×3 (08:35→21:29)
[2016-03-07] MEDS: LEVETIRACETAM 500 MG TAB PO SCH ×2 (08:35→21:21)
--- NOTE | 2016-03-07 08:41 | OPR ---
DATE OF OPERATION: 03/06/2016 SURGEON: Ky Silveira. WAXING MACHINE OPERATOR: None. PREOPERATIVE DIAGNOSIS: Right closed intertrochanteric femoral fracture. POSTOPERATIVE DIAGNOSIS: Right closed intertrochanteric femoral fracture. PROCEDURE PERFORMED: Right hip cephalomedullary nailing. ANESTHESIOLOGIST: ANESTHESIA: General. ESTIMATED BLOOD LOSS: 100 mL. COMPLICATIONS: None. SPECIMEN: None. DISPOSITION: To PACU in stable condition. IMPLANT USED: Andrea gamma nail 11 mm x 360 mm, 100 mm lag screw, 42.5 mm distal locking screw. INDICATIONS FOR PROCEDURE: This is a 60-year-old female who fell sustaining a right closed displaced intertrochanteric femur fracture. Risks, benefits, and alternatives to surgical intervention were discussed with the patient and informed consent was obtained. The risks of surgery include, but are not limited to, infection, deep venous thrombosis, pulmonary embolism, malunion, nonunion, painful hardware and need for hardware removal, need for revision surgery, hip arthritis, damage to neurovascular structures. Risks associated with anesthesia are heart attack, stroke, need for blood transfusion and even . DETAILS OF THE PROCEDURE: The patient was met in the preoperative suite and the correct operative site was confirmed and marked. She was then brought into the operating room. After the induction of general anesthesia she was placed in the supine position on the fracture table. The right hip was then closed reduced on the fracture table and confirmed with the C-arm in both AP and lateral planes. The right lower extremity was then prepped and draped in the usual sterile fashion. Before starting a timeout was taken to identify the correct operative site and to confirm the preoperative antibiotics consisting of 1 g of IV Ancef was administered. At this point a small incision measuring 2 cm was made proximal to the greater trochanter. The incision was carried down to the fascia. The guidewire was then placed on the tip of the greater trochanter in line with the femur in both AP and lateral planes and confirmed with fluoroscope. It was then advanced to the lesser trochanter. The soft tissue protection sleeve was then advanced over the guidewire followed by the opening reamer. The guidewire was removed and a ball tip guidewire was then placed in the femoral canal. It was then measured to 385 mm. Sequential reaming was begun with a 10 mm nail going up to a 13 mm nail for a size 11 mm nail. The 11 mm x 360 mm nail was then advanced over the guidewire noted to be in the correct position. The fracture was noted to be reduced with the cortical contact of on fluoroscope in both the AP and lateral images. At this point the trocar was placed and a small stab incision was made. The trocar was advanced through the lateral cortex of the femur and the guidewire was then placed in the center-center position in the femoral head and neck in both the AP and lateral planes. It was then measured to 100 mm. The reamer was then advanced over the guidewire. The 100 mm lag screw was then placed. Next a small stab incision was made over the distal locking hole. Using the perfect [place] method the drill was then advanced and drilled bicortically. It was measured to 42.5 mm. The appropriate size screw was then advanced in the static locking hole. It was confirmed to be in place in both the AP and lateral planes. Final images were then taken which demonstrated that the fracture was reduced with cortical contact. Then it was in the appropriate position. The wounds were thoroughly irrigated. The fascia was closed using a #1 Vicryl in interrupted [id number] fashion followed by closure of the subcutaneous tissue with 2-0 Vicryl and the skin with jeni. A sterile dressing was applied. There were no complications. The patient was transferred to the PACU in stable condition. POSTOPERATIVE CARE: The patient will be weightbearing as tolerated. She will be admitted and receive 2 additional doses of Ancef 1 g every 8 hours for 2 doses. She will have SCDs for DVT prophylaxis. In addition she will receive aspirin 325 p.o. b.i.d. for 6 weeks for DVT prophylaxis. She will work with physical therapy. Upon discharge she will follow up in my office with 2 weeks postoperatively. Dictated By: KY MONTERO/DELGADO Conf#: [id number] DID#: [id number] MTDD
--- NOTE | 2016-03-07 12:59 | PN ---
Date/Time of Note Date/Time of Note DATE: 03/07/16 TIME: 12:49 Assessment/Plan VTE Prophylaxis VTE Prophylaxis Intervention: SCD's Lines/Catheters IV Catheter Type (from Nrsg): Peripheral IV Urinary Cath still in place: Yes Reason Cath still needed: other (indicate) Assessment/Plan Assessment/Plan 60 yo female with : 1. Right hip fracture status post fall which seems to be more as accidental. POD#1 s/p Right hip cephalomedullary nailing. PT to start today On ASA 325 mg po bid for DVT ppx per Orthopedic surgery. Pain controlled D/c plan to SNF vs Home Health PT by POD#2 or 3 if OK with surgery 2. Acute kidney injury, with mild rhabdomyolysis Total CK trending down, continue IVF for now. Renal ultrasound wnl Pelaez catheter is in place, to be removed today. Continue to monitor urine output. 3. Mildly elevated troponin in setting of Mild rhabdomyolysis, appreciate Cardiology recommendations, Continue current meds including ASA and resuming BP control 4. Hypertension: Resuming meds today. 5. Chronic hyponatremia. Her baseline sodium level is in 130's. Stable so far , Continue IV fluids until total CK wnl. 6. Seizure disorder. Continue outpatient medications. 7. Chronic pain, narcotic dependent. Continue current pain medications, including prn Morphine. 8. Leukocytosis, unclear etiology, resolved. Blood cx 1/2 with ? gram positive rods ... ? contaminant Repeat blood cx pending Continue Levaquin for now. Prophylaxis: On ASA high dose for DVT prophylaxis per orhto, Protonix for GI prophylaxis. DISPOSITION: PT today and removed Pelaez catheter, Orthopedic surgery and cardiology following. Subjective 24 Hr Interval Summary Free Text/Dictation Patient remains stable No complaints except frustration from being stuck in bed PT eval pending Pain control and d/c Pelaez Exam/Review of Systems Vital Signs Vitals Vital Signs Date Time Temp Pulse Resp B/P Pulse Ox O2 Delivery O2 Flow Rate FiO2 03/07/16 12:10 85 03/07/16 11:31 99.0 18 164/81 94 03/06/16 12:21 Room Air 03/06/16 12:01 8.0 Intake and Output 03/06/16 03/06/16 03/07/16 15:00 23:00 07:00 Intake Total 950 ml 1160 ml 1700 ml Output Total 1130 ml 800 ml 500 ml Balance -180 ml 360 ml 1200 ml Exam Constitutional: alert, frail, oriented Respiratory: clear to auscultation, normal air movement Cardiovascular: nl pulses, regular rate and rhythm Gastrointestinal: non-tender, soft Neurological: SURVEYOR HELPER ROD II-XII intact, nl mental status, nl speech, other (s/p right TKA ) Results Result Diagram: 03/07/16 0530 03/07/16 0530 Results 24 hrs Laboratory Tests Test 03/07/16 05:30 Alanine Aminotransferase (ALT/SGPT) 31 Albumin 2.1 L Albumin/Globulin Ratio 0.95 Alkaline Phosphatase 56 Anion Gap 12 Aspartate Amino Transf (AST/SGOT) 35 Basophils # 0.0 Basophils % 0.6 Blood Morphology Comment Blood Urea Nitrogen 11 Calcium Level 7.5 L Carbon Dioxide Level 25 Chloride Level 98 Creatine Kinase 395 #H Creatine Kinase Index 0.8 Creatinine 0.48 Creatinine Kinase MB (Mass) 3.03 H Direct Bilirubin 0.00 Eosinophils # 0.0 Eosinophils % 0.6 Globulin 2.20 Glucose Level 87 Hematocrit 22.6 L Hemoglobin 7.9 L Indirect Bilirubin 0.2 Lymphocytes # 0.8 Lymphocytes % 14.6 L Magnesium Level 1.5 L Mean Corpuscular Hemoglobin 34.0 H Mean Corpuscular Hemoglobin Concent 34.9 Mean Corpuscular Volume 97.5 Mean Platelet Volume 7.6 Monocytes # 0.7 Monocytes % 12.4 H Neutrophils # 3.8 Neutrophils % 71.8 Nucleated Red Blood Cells # 0.0 Nucleated Red Blood Cells % 0.0 Phosphorus Level 2.9 Platelet Count 220 Potassium Level 4.0 Red Blood Count 2.32 L Red Cell Distribution Width 13.7 Sodium Level 131 L Total Bilirubin 0.2 Total Protein 4.3 L Troponin I 0.152 *H White Blood Count 5.3 Medications Medications Current Medications Hydroxychloroquine Sulfate (Plaquenil) 200 mg BID PO Last administered on 08:35; Admin Dose 200 MG; Start 03/04/16 at 21:00 Levetiracetam (Keppra) 1,000 mg BID PO Last administered on 03/07/16 08:35; Admin Dose 1,000 MG; Start 03/04/16 at 21:00 Ondansetron HCl (Zofran Inj) 4 mg Q6H PRN IV NAUSEA AND/OR VOMITING; Start at 15:00 Acetaminophen (Tylenol Tab) 650 mg Q6H PRN PO PAIN LEVEL 1-3 OR FEVER; Start at 15:00 Acetaminophen/ Hydrocodone Bitart ([place] (5/325)) 1 tab Q6H PRN PO PAIN LEVEL 4 -6 Last administered on 03/04/16 17:13; Admin Dose 1 TAB; Start 03/04/16 at 15: 00 Acetaminophen/ Hydrocodone Bitart ([place] (5/325)) 2 tab Q6H PRN PO PAIN LEVEL 7 -10 Last administered on 03/07/16 08:42; Admin Dose 2 TAB; Start 03/04/16 at 15 :00 Morphine Sulfate (morphine) 2 mg Q4H PRN IV PAIN LEVEL 7-10 Last administered on 03/06/16 18:18; Admin Dose 2 MG; Start 03/04/16 at 15:00 Docusate Sodium (Colace) 100 mg Q12H PRN PO CONSTIPATION; Start 03/04/16 at 15: 00 Magnesium Hydroxide (Milk Of Mag) 30 ml DAILY PRN PO CONSTIPATION; Start at 15:00 Bisacodyl (Dulcolax Supp) 10 mg DAILY PRN [place] CONSTIPATION; Start 03/04/16 at 15 :00 Pantoprazole (Protonix Tab) 40 mg DAILY@06 PO Last administered on 03/07/16 06 :54; Admin Dose 40 MG; Start 03/05/16 at 06:00 Carbamazepine (Tegretol Xr) 400 mg TID PO Last administered on 03/07/16 08:35 ; Admin Dose 400 MG; Start 03/04/16 at 15:06 Piroxicam 20 mg 20 mg DAILY PO Last administered on 03/07/16 08:35; Admin Dose 20 MG; Start 03/05/16 at 09:00 Levofloxacin/ Dextrose 50 ml @ 50 mls/hr Q24H IVPB Last administered on 16:05; Admin Dose 50 MLS/HR; Start 03/06/16 at 16:00 Sodium Chloride (NS) 1,000 ml @ 100 mls/hr Q10H IV Last administered on 08:34; Admin Dose 100 MLS/HR; Start 03/06/16 at 13:00 Aspirin (Aspirin) 325 mg BID PO Last administered on 03/07/16 08:35; Admin Dose 325 MG; Start 03/06/16 at 21:00; Stop 04/17/16 at 09:01 Ketorolac Tromethamine (Toradol) 30 mg Q6H PRN IV PAIN; Start 03/06/16 at 13:00 ; Stop 03/09/16 at 12:59 Acetaminophen/ Hydrocodone Bitart ([place] (5/325)) 1 tab Q6H PRN PO PAIN; Start 03/06/16 at 13:00 Loratadine 10 mg 10 mg DAILY PO Last administered on 03/07/16 08:35; Admin Dose 10 MG; Start 03/06/16 at 18:24 Magnesium Sulfate (Magnesium Sulfate 2 Gm/50 ml) 50 ml @ 25 mls/hr ONCE ONCE IVPB ; Start 03/07/16 at 13:00; Stop 03/07/16 at 14:59 AMBROSE RENEE Mar 07, 2016 12:59
[2016-03-07] MEDS ORDERED: MAGNESIUM SULFATE 2 GM/50 ML 50 ML IVPB ONE (13:00)
[2016-03-07] MEDS: AMLODIPINE 10 MG TAB PO SCH (13:05)
[2016-03-07] MEDS: LISINOPRIL 20 MG TAB PO SCH (13:06)
--- NOTE | 2016-03-07 14:19 | CONS ---
Date/Time of Note Date/Time of Note DATE: 03/07/16 TIME: 14:13 Assessment/Plan Assessment/Plan Additional Assessment/Plan Status post fall with Hip fracture, intertrochanteric fracture of hip, s/p Right hip cephalomedullary nailing Abnormal electrocardiogram with nonspecific ST and T abnormalities, left ventricular hypertrophy. Anemia. Renal failure. Rhabdomyolysis Rheumatoid Arthritis Seizures Hyponatremia Stress Test no ischemia Echo preserved systolic function Hemodynamically stable Continue IV fluids Continue Norvasc and Lisinopril Continue Plaquenil and Methyldopa Continue Antibiotics Continue Pain control as scheduled Continue GI and DVT Prophylaxis Consultation Date/Type/Reason Admit Date/Time Mar 04, 2016 at 12:54 Initial Consult Date Type of Consultation: Cardiology Referring Provider: AMBROSE RENEE Exam/Review of Systems Vital Signs Vitals Vital Signs Date Time Temp Pulse Resp B/P Pulse Ox O2 Delivery O2 Flow Rate FiO2 03/07/16 12:10 85 03/07/16 11:31 99.0 18 164/81 94 03/06/16 12:21 Room Air 03/06/16 12:01 8.0 Intake and Output 03/06/16 03/06/16 03/07/16 15:00 23:00 07:00 Intake Total 950 ml 1160 ml 1700 ml Output Total 1130 ml 800 ml 500 ml Balance -180 ml 360 ml 1200 ml Exam Constitutional: alert, oriented Head: atraumatic, normocephalic Neck: non-tender, supple Respiratory: clear to auscultation Cardiovascular: regular rate and rhythm Gastrointestinal: nl liver, spleen, non-tender, soft Extremities: normal pulses Results Result Diagram: 03/07/16 0530 03/07/16 0530 Results 24 hrs Laboratory Tests Test 03/07/16 05:30 Alanine Aminotransferase (ALT/SGPT) 31 Albumin 2.1 L Albumin/Globulin Ratio 0.95 Alkaline Phosphatase 56 Anion Gap 12 Aspartate Amino Transf (AST/SGOT) 35 Basophils # 0.0 Basophils % 0.6 Blood Morphology Comment Blood Urea Nitrogen 11 Calcium Level 7.5 L Carbon Dioxide Level 25 Chloride Level 98 Creatine Kinase 395 #H Creatine Kinase Index 0.8 Creatinine 0.48 Creatinine Kinase MB (Mass) 3.03 H Direct Bilirubin 0.00 Eosinophils # 0.0 Eosinophils % 0.6 Globulin 2.20 Glucose Level 87 Hematocrit 22.6 L Hemoglobin 7.9 L Indirect Bilirubin 0.2 Lymphocytes # 0.8 Lymphocytes % 14.6 L Magnesium Level 1.5 L Mean Corpuscular Hemoglobin 34.0 H Mean Corpuscular Hemoglobin Concent 34.9 Mean Corpuscular Volume 97.5 Mean Platelet Volume 7.6 Monocytes # 0.7 Monocytes % 12.4 H Neutrophils # 3.8 Neutrophils % 71.8 Nucleated Red Blood Cells # 0.0 Nucleated Red Blood Cells % 0.0 Phosphorus Level 2.9 Platelet Count 220 Potassium Level 4.0 Red Blood Count 2.32 L Red Cell Distribution Width 13.7 Sodium Level 131 L Total Bilirubin 0.2 Total Protein 4.3 L Troponin I 0.152 *H White Blood Count 5.3 Medications Medications Current Medications Hydroxychloroquine Sulfate (Plaquenil) 200 mg BID PO Last administered on 08:35; Admin Dose 200 MG; Start 03/04/16 at 21:00 Levetiracetam (Keppra) 1,000 mg BID PO Last administered on 03/07/16 08:35; Admin Dose 1,000 MG; Start 03/04/16 at 21:00 Ondansetron HCl (Zofran Inj) 4 mg Q6H PRN IV NAUSEA AND/OR VOMITING; Start at 15:00 Acetaminophen (Tylenol Tab) 650 mg Q6H PRN PO PAIN LEVEL 1-3 OR FEVER; Start at 15:00 Morphine Sulfate (morphine) 2 mg Q4H PRN IV PAIN LEVEL 7-10 Last administered on 03/06/16 18:18; Admin Dose 2 MG; Start 03/04/16 at 15:00 Docusate Sodium (Colace) 100 mg Q12H PRN PO CONSTIPATION; Start 03/04/16 at 15: 00 Magnesium Hydroxide (Milk Of Mag) 30 ml DAILY PRN PO CONSTIPATION; Start at 15:00 Bisacodyl (Dulcolax Supp) 10 mg DAILY PRN [place] CONSTIPATION; Start 03/04/16 at 15 :00 Pantoprazole (Protonix Tab) 40 mg DAILY@06 PO Last administered on 03/07/16 06 :54; Admin Dose 40 MG; Start 03/05/16 at 06:00 Carbamazepine (Tegretol Xr) 400 mg TID PO Last administered on 03/07/16 13:05 ; Admin Dose 400 MG; Start 03/04/16 at 15:06 Piroxicam 20 mg 20 mg DAILY PO Last administered on 03/07/16 08:35; Admin Dose 20 MG; Start 03/05/16 at 09:00 Levofloxacin/ Dextrose 50 ml @ 50 mls/hr Q24H IVPB Last administered on 16:05; Admin Dose 50 MLS/HR; Start 03/06/16 at 16:00 Sodium Chloride (NS) 1,000 ml @ 100 mls/hr Q10H IV Last administered on 08:34; Admin Dose 100 MLS/HR; Start 03/06/16 at 13:00 Aspirin (Aspirin) 325 mg BID PO Last administered on 03/07/16 08:35; Admin Dose 325 MG; Start 03/06/16 at 21:00; Stop 04/17/16 at 09:01 Ketorolac Tromethamine (Toradol) 30 mg Q6H PRN IV PAIN; Start 03/06/16 at 13:00 ; Stop 03/09/16 at 12:59 Acetaminophen/ Hydrocodone Bitart ([place] (5/325)) 1 tab Q6H PRN PO PAIN; Start 03/06/16 at 13:00 Loratadine 10 mg 10 mg DAILY PO Last administered on 03/07/16 08:35; Admin Dose 10 MG; Start 03/06/16 at 18:24 Magnesium Sulfate (Magnesium Sulfate 2 Gm/50 ml) 50 ml @ 25 mls/hr ONCE ONCE IVPB Last administered on 03/07/16 13:05; Admin Dose 25 MLS/HR; Start at 13:00; Stop 03/07/16 at 14:59 Amlodipine Besylate (Norvasc) 10 mg DAILY PO Last administered on 03/07/16 13: 05; Admin Dose 10 MG; Start 03/07/16 at 13:00 Hydralazine HCl (Apresoline) 25 mg TID PRN PO ELEVATED BLOOD PRESSURE; Start at 13:00 Lisinopril (Zestril) 40 mg DAILY PO Last administered on 03/07/16 13:06; Admin Dose 40 MG; Start 03/07/16 at 13:00 Methyldopa (Aldomet) 500 mg BID PO ; Start 03/07/16 at 21:00 JNENIFER DODD M.D. Mar 07, 2016 14:19
[2016-03-07] MEDS: LEVOFLOXACIN 250MG/D5W (PMX) 50 ML IVPB SCH (15:51)
[2016-03-07] MEDS: morphine 2 MG INJ IV PRN ×2 (16:46→21:23)
[2016-03-07] MEDS: METHYLDOPA 500 MG TAB PO SCH (21:21)
[2016-03-07] MEDS: DIPHENHYDRAMINE 25 MG CAP PO SCH (21:29)
[2016-03-08] VITALS (11 sets, daily range): BP systolic 107–175; BP diastolic 59–82; PULSE 83–98; RESP 18–20
[2016-03-08] MEDS: SOD CHLORIDE 0.9% 1,000 ML IV SCH ×2 (05:38→11:55)
[2016-03-08] MEDS: PANTOPRAZOLE (EC) 40 MG TAB PO SCH ×2 (06:00→06:25)
[2016-03-08 07:41] LABS: POTASSIUM 3.5 mmol/L (3.5-5.1)
[2016-03-08 07:42] LABS: BASOPHILS % 0.4 % (0.0-2.0); EOSINOPHILS # 0.1 10^3/ul (0.0-0.5); HEMATOCRIT 21.6 % (37.0-47.0); HEMOGLOBIN 7.7 g/dl (12.0-16.0); LYMPHOCYTES # 0.6 10^3/ul (0.8-2.9); LYMPHOCYTES % 10.1 % (15.0-51.0); MEAN CORPUSCULAR HEMOGLOBIN 34.6 pg (29.0-33.0); MEAN CORPUSCULAR HGB CONC 35.6 g/dl (32.0-37.0); MEAN CORPUSCULAR VOLUME 97.1 fl (82.0-101.0); MEAN PLATELET VOLUME 7.4 fl (7.4-10.4); MONOCYTE # 0.7 10^3/ul (0.3-0.9); MONOCYTES % 10.8 % (0.0-11.0); NEUTROPHIL # 4.7 10^3/ul (1.6-7.5); NEUTROPHILS % 77.7 % (39.0-77.0); PLATELET COUNT 218 10^3/UL (140-440); RED BLOOD COUNT 2.22 10^6/ul (4.20-5.40); RED CELL DISTRIBUTION WIDTH 13.5 % (11.5-14.5); UNCORRECTED WBC 6.1 10^3/ul (4.8-10.8); WHITE BLOOD COUNT 6.1 10^3/ul (4.8-10.8)
[2016-03-08 07:43] LABS: CONDITION 1; LH ANALYZER COMMENTS 1
[2016-03-08 07:44] LABS: CREATININE 0.45 mg/dl (0.44-1.00)
[2016-03-08 07:45] LABS: CALCIUM 7.3 mg/dl (8.4-10.2)
[2016-03-08] MEDS: morphine 2 MG INJ IV PRN (08:27)
[2016-03-08] MEDS: ASPIRIN 325 MG TAB PO SCH ×2 (08:29→21:52)
[2016-03-08] MEDS: METHYLDOPA 500 MG TAB PO SCH ×2 (08:29→22:32)
[2016-03-08] MEDS: PIROXICAM 10 MG CAP PO SCH (08:29)
[2016-03-08] MEDS: LISINOPRIL 20 MG TAB PO SCH (08:30)
[2016-03-08] MEDS: HYDROXYCHLOROQUINE 200 MG TAB PO SCH ×2 (08:30→22:32)
[2016-03-08] MEDS: LEVETIRACETAM 500 MG TAB PO SCH ×2 (08:31→21:22)
[2016-03-08] MEDS: AMLODIPINE 10 MG TAB PO SCH (08:31)
[2016-03-08] MEDS: carBAMAZepine (XR) 100 MG TABSR PO SCH ×3 (08:31→22:32)
[2016-03-08] MEDS: LORATADINE 10 MG TAB PO SCH (08:31)
[2016-03-08] MEDS ORDERED: POTASSIUM CHLORIDE (SR) 20 MEQ TAB PO STA (09:54)
[2016-03-08] MEDS ORDERED: MAGNESIUM SULFATE 4 GM/100 ML 100 ML IVPB ONE (10:00)
[2016-03-08 12:05] LABS: CK-MB 1.97 ng/ml (0.0-2.4)
[2016-03-08 12:08] LABS: TROPONIN-I 0.092 ng/ml (0.00-0.12)
--- NOTE | 2016-03-08 14:50 | PN ---
Date/Time of Note Date/Time of Note DATE: 03/08/16 TIME: 14:33 Assessment/Plan VTE Prophylaxis VTE Prophylaxis Intervention: SCD's, other (ASA) Lines/Catheters IV Catheter Type (from Nrs): Peripheral IV Urinary Cath still in place: No Assessment/Plan Assessment/Plan 60 yo female with : 1. Right hip fracture status post fall which seems to be more as accidental. POD#2 s/p Right hip cephalomedullary nailing. PT pending today, patient has refused today On ASA 325 mg po bid for DVT ppx per Orthopedic surgery. Hb down to 7.7 and planning to transfuse 1 or 2 units pRBC Pain controlled D/c plan to ARU vs SNF vs Home Health PT by POD# 3 if OK with surgery 2. Acute kidney injury, with mild rhabdomyolysis. Resolved. Total CK down to normal, d/c IVF. Renal ultrasound wnl 3. Mildly elevated troponin in setting of Mild rhabdomyolysis, appreciate Cardiology recommendations, Continue current meds including ASA and resuming BP control 4. Hypertension: BP controlled with home meds. 5. Chronic hyponatremia. Her baseline sodium level is in 130's. Stable so far, d/c IV fluids. 6. Seizure disorder. Continue outpatient medications. 7. Chronic pain, narcotic dependent. Continue current pain medications, including prn Morphine. 8. Leukocytosis, unclear etiology, resolved. Blood cx 1/2 with ? gram positive rods ... ? contaminant Repeat blood cx NGTD Continue Levaquin for now. Prophylaxis: On ASA high dose for DVT prophylaxis per orhto, Protonix for GI prophylaxis. DISPOSITION: PT today , Orthopedic surgery and cardiology following. Transfuse pRBC Subjective 24 Hr Interval Summary Free Text/Dictation Patient doing OK and apparently refused PT this AM because too tired No agreable Hb still low 7.7 and patient complaining of being too weak Exam/Review of Systems Vital Signs Vitals Vital Signs Date Time Temp Pulse Resp B/P Pulse Ox O2 Delivery O2 Flow Rate FiO2 03/08/16 12:05 90 03/08/16 11:57 97.6 20 133/67 90 03/06/16 12:21 Room Air 03/06/16 12:01 8.0 Intake and Output 03/07/16 03/07/16 03/08/16 15:00 23:00 07:00 Intake Total 50 ml 1770 ml Output Total 1300 ml Balance 50 ml 470 ml Exam Constitutional: alert, oriented, well developed Respiratory: clear to auscultation, normal air movement Cardiovascular: nl pulses, regular rate and rhythm Gastrointestinal: non-tender, soft Musculoskeletal: nl extremities to inspection Extremities: normal pulses, other (no edema, clubbing or cyanosis ) Neurological: PROGRAM/MUSIC DIRECTOR II-XII intact, nl mental status, nl speech, other (limited exam ) Results Result Diagram: 03/08/16 0610 03/08/16 0610 Results 24 hrs Laboratory Tests Test 03/08/16 06:10 03/08/16 10:55 Anion Gap 7 L Basophils # 0.0 Basophils % 0.4 Blood Morphology Comment Blood Urea Nitrogen 10 Calcium Level 7.3 L Carbon Dioxide Level 31 Chloride Level 97 Creatinine 0.45 Eosinophils # 0.1 Eosinophils % 1.0 Glucose Level 92 Hematocrit 21.6 L Hemoglobin 7.7 L Lymphocytes # 0.6 L Lymphocytes % 10.1 L Magnesium Level 1.4 L Mean Corpuscular Hemoglobin 34.6 H Mean Corpuscular Hemoglobin Concent 35.6 Mean Corpuscular Volume 97.1 Mean Platelet Volume 7.4 Monocytes # 0.7 Monocytes % 10.8 Neutrophils # 4.7 Neutrophils % 77.7 H Nucleated Red Blood Cells # 0.0 Nucleated Red Blood Cells % 0.0 Platelet Count 218 Potassium Level 3.5 Red Blood Count 2.22 L Red Cell Distribution Width 13.5 Sodium Level 131 L White Blood Count 6.1 Creatine Kinase 224 #H Creatine Kinase Index 0.9 Creatinine Kinase MB (Mass) 1.97 Troponin I 0.092 Medications Medications Current Medications Hydroxychloroquine Sulfate (Plaquenil) 200 mg BID PO Last administered on 08:30; Admin Dose 200 MG; Start 03/04/16 at 21:00 Levetiracetam (Keppra) 1,000 mg BID PO Last administered on 03/08/16 08:31; Admin Dose 1,000 MG; Start 03/04/16 at 21:00 Ondansetron HCl (Zofran Inj) 4 mg Q6H PRN IV NAUSEA AND/OR VOMITING; Start at 15:00 Acetaminophen (Tylenol Tab) 650 mg Q6H PRN PO PAIN LEVEL 1-3 OR FEVER; Start at 15:00 Morphine Sulfate (morphine) 2 mg Q4H PRN IV PAIN LEVEL 7-10 Last administered on 03/08/16 08:27; Admin Dose 2 MG; Start 03/04/16 at 15:00 Docusate Sodium (Colace) 100 mg Q12H PRN PO CONSTIPATION; Start 03/04/16 at 15: 00 Magnesium Hydroxide (Milk Of Mag) 30 ml DAILY PRN PO CONSTIPATION Last administered on 03/08/16 08:29; Admin Dose 30 ML; Start 03/04/16 at 15:00 Bisacodyl (Dulcolax Supp) 10 mg DAILY PRN [place] CONSTIPATION; Start 03/04/16 at 15 :00 Pantoprazole (Protonix Tab) 40 mg DAILY@06 PO Last administered on 03/07/16 06 :54; Admin Dose 40 MG; Start 03/05/16 at 06:00 Carbamazepine (Tegretol Xr) 400 mg TID PO Last administered on 03/08/16 12:00 ; Admin Dose 400 MG; Start 03/04/16 at 15:06 Piroxicam (Feldene) 20 mg DAILY PO Last administered on 03/08/16 08:29; Admin Dose 20 MG; Start 03/05/16 at 09:00 Aspirin (Aspirin) 325 mg BID PO Last administered on 03/08/16 08:29; Admin Dose 325 MG; Start 03/06/16 at 21:00; Stop 04/17/16 at 09:01 Ketorolac Tromethamine (Toradol) 30 mg Q6H PRN IV PAIN; Start 03/06/16 at 13:00 ; Stop 03/09/16 at 12:59 Acetaminophen/ Hydrocodone Bitart ([place] (5/325)) 1 tab Q6H PRN PO PAIN; Start 03/06/16 at 13:00 Loratadine (Claritin) 10 mg DAILY PO Last administered on 03/08/16 08:31; Admin Dose 10 MG; Start 03/06/16 at 18:24 Amlodipine Besylate (Norvasc) 10 mg DAILY PO Last administered on 03/08/16 08: 31; Admin Dose 10 MG; Start 03/07/16 at 13:00 Hydralazine HCl (Apresoline) 25 mg TID PRN PO ELEVATED BLOOD PRESSURE Last administered on 03/07/16 23:15; Admin Dose 25 MG; Start 03/07/16 at 13:00 Lisinopril (Zestril) 40 mg DAILY PO Last administered on 03/08/16 08:30; Admin Dose 40 MG; Start 03/07/16 at 13:00 Methyldopa (Aldomet) 500 mg BID PO Last administered on 03/08/16 08:29; Admin Dose 500 MG; Start 03/07/16 at 21:00 Diphenhydramine HCl (Benadryl) 25 mg HS PO Last administered on 03/07/16 21:29 ; Admin Dose 25 MG; Start 03/07/16 at 21:00 AMBROSE RENEE Mar 08, 2016 14:50
[2016-03-08] MEDS ORDERED: SOD CHLORIDE 0.9% 250 ML IV* ONE (15:33)
[2016-03-08] MEDS ORDERED: DIPHENHYDRAMINE 50 MG INJ IV ONE (19:30)
[2016-03-08] MEDS ORDERED: ACETAMINOPHEN 325 MG TAB PO ONE (19:30)
[2016-03-08] MEDS: DIPHENHYDRAMINE 25 MG CAP PO SCH (21:52)
[2016-03-08] MEDS ORDERED: FUROSEMIDE 20 MG INJ IV ONE ×2 (23:30)
[2016-03-09] MEDS: PANTOPRAZOLE (EC) 40 MG TAB PO SCH (05:35)
[2016-03-09 05:38] LABS: MAGNESIUM 1.6 mg/dl (1.7-2.5); PHOSPHORUS 3.2 mg/dl (2.5-4.9)
[2016-03-09 05:52] LABS: BASOPHILS % 0.4 % (0.0-2.0); EOSINOPHILS # 0.1 10^3/ul (0.0-0.5); EOSINOPHILS % 1.4 % (0.0-7.0); HEMATOCRIT 30.9 % (37.0-47.0); HEMOGLOBIN 10.7 g/dl (12.0-16.0); LYMPHOCYTES # 0.7 10^3/ul (0.8-2.9); LYMPHOCYTES % 10.2 % (15.0-51.0); MEAN CORPUSCULAR HEMOGLOBIN 32.4 pg (29.0-33.0); MEAN CORPUSCULAR HGB CONC 34.5 g/dl (32.0-37.0); MEAN CORPUSCULAR VOLUME 93.9 fl (82.0-101.0); MEAN PLATELET VOLUME 7.7 fl (7.4-10.4); MONOCYTE # 0.6 10^3/ul (0.3-0.9); MONOCYTES % 9.8 % (0.0-11.0); NEUTROPHIL # 5.2 10^3/ul (1.6-7.5); NEUTROPHILS % 78.2 % (39.0-77.0); PLATELET COUNT 229 10^3/UL (140-440); RED BLOOD COUNT 3.29 10^6/ul (4.20-5.40); RED CELL DISTRIBUTION WIDTH 15.8 % (11.5-14.5); UNCORRECTED WBC 6.6 10^3/ul (4.8-10.8); WHITE BLOOD COUNT 6.6 10^3/ul (4.8-10.8)
[2016-03-09 05:55] LABS: CONDITION 1; LH ANALYZER COMMENTS 1
[2016-03-09 06:01] LABS: POTASSIUM 4.3 mmol/L (3.5-5.1)
[2016-03-09 06:03] LABS: CREATININE 0.5 mg/dl (0.44-1.00)
[2016-03-09 06:04] LABS: CALCIUM 7.7 mg/dl (8.4-10.2)
[2016-03-09 08:09] VITALS: BP 188/91; RESP 22
[2016-03-09] MEDS: morphine 2 MG INJ IV PRN ×2 (09:22→13:31)
[2016-03-09] MEDS: ASPIRIN 325 MG TAB PO SCH (09:28)
[2016-03-09] MEDS: METHYLDOPA 500 MG TAB PO SCH (09:28)
[2016-03-09] MEDS: LORATADINE 10 MG TAB PO SCH (09:28)
[2016-03-09] MEDS: AMLODIPINE 10 MG TAB PO SCH (09:29)
[2016-03-09] MEDS: carBAMAZepine (XR) 100 MG TABSR PO SCH ×2 (09:29→13:31)
[2016-03-09] MEDS: LISINOPRIL 20 MG TAB PO SCH (09:29)
[2016-03-09] MEDS: LEVETIRACETAM 500 MG TAB PO SCH (09:29)
[2016-03-09] MEDS: HYDROXYCHLOROQUINE 200 MG TAB PO SCH (09:30)
[2016-03-09] MEDS: PIROXICAM 10 MG CAP PO SCH (09:56)
[2016-03-09] MEDS ORDERED: MAGNESIUM SULFATE 4 GM/100 ML 100 ML IVPB SCH (11:00)
--- NOTE | 2016-03-09 13:11 | PN ---
Date/Time of Note Date/Time of Note DATE: 03/09/16 TIME: 13:06 Assessment/Plan VTE Prophylaxis VTE Prophylaxis Intervention: SCD's, other (ASA high dose ) Lines/Catheters IV Catheter Type (from Nrs): Peripheral IV Urinary Cath still in place: No Assessment/Plan Assessment/Plan 60 yo female with : 1. Right hip fracture status post fall which seems to be more as accidental. POD#3 s/p Right hip cephalomedullary nailing. Appreciate PT eval and ARU eval and acceptance pending today, patient has refused today On ASA 325 mg po bid for DVT ppx per Orthopedic surgery to contunue x 6 weeks Hb up to 10 a/p 2 units pRBC Pain controlled D/c plan to ARU today and f/u with ortho in 1 to 2 weeks 2. Acute kidney injury, with mild rhabdomyolysis. Resolved. Total CK down to normal, d/c IVF. Renal ultrasound wnl 3. Mildly elevated troponin in setting of Mild rhabdomyolysis, appreciate Cardiology recommendations, Continue current meds including ASA and resuming BP control 4. Hypertension: BP controlled with home meds. 5. Chronic hyponatremia. Her baseline sodium level is in 130's. Stable so far. 6. Seizure disorder. Continue outpatient medications. 7. Chronic pain, narcotic dependent. Continue current pain medications, including prn Morphine. 8. Leukocytosis, unclear etiology, resolved. Blood cx 1/2 with ? gram positive rods ... ? contaminant Repeat blood cx NGTD d/c Levaquin. Prophylaxis: On ASA high dose for DVT prophylaxis per orhto, Protonix for GI prophylaxis. DISPOSITION: Discharge to ARU today, I will ask Dr Cummings to take over care while in ARU. Follow up with Orthopedic surgery in 1 to 2 weeks Subjective 24 Hr Interval Summary Free Text/Dictation Patient doing well, no complaints and to go to ARU for PT today S/p 2 units pRBC with Hb up to 10 Exam/Review of Systems Vital Signs Vitals Vital Signs Date Time Temp Pulse Resp B/P Pulse Ox O2 Delivery O2 Flow Rate FiO2 03/09/16 08:09 98.3 86 22 188/91 96 03/06/16 12:21 Room Air 03/06/16 12:01 8.0 Intake and Output 03/08/16 03/08/16 03/09/16 15:00 23:00 07:00 Intake Total 1000 ml 580 ml Output Total 700 ml Balance 1000 ml -120 ml Exam Constitutional: alert, oriented, well developed Respiratory: clear to auscultation, normal air movement Cardiovascular: nl pulses, regular rate and rhythm Gastrointestinal: non-tender, soft Musculoskeletal: nl extremities to inspection Extremities: normal pulses, other (no edema, clubbing or cyanosis ) Neurological: COURT CRIER II-XII intact, nl mental status, nl speech, nl strength Results Result Diagram: 03/09/1645403/09/16454 Results 24 hrs Laboratory Tests Test 03/09/16 04:55 Anion Gap 10 Basophils # 0.0 Basophils % 0.4 Blood Morphology Comment Blood Urea Nitrogen 15 Calcium Level 7.7 L Carbon Dioxide Level 31 Chloride Level 95 L Creatinine 0.50 Eosinophils # 0.1 Eosinophils % 1.4 Glucose Level 94 Hematocrit 30.9 #L Hemoglobin 10.7 #L Lymphocytes # 0.7 L Lymphocytes % 10.2 L Magnesium Level 1.6 L Mean Corpuscular Hemoglobin 32.4 Mean Corpuscular Hemoglobin Concent 34.5 Mean Corpuscular Volume 93.9 Mean Platelet Volume 7.7 Monocytes # 0.6 Monocytes % 9.8 Neutrophils # 5.2 Neutrophils % 78.2 H Nucleated Red Blood Cells # 0.0 Nucleated Red Blood Cells % 0.0 Phosphorus Level 3.2 Platelet Count 229 Potassium Level 4.3 Red Blood Count 3.29 #L Red Cell Distribution Width 15.8 H Sodium Level 132 L White Blood Count 6.6 Medications Medications Current Medications Hydroxychloroquine Sulfate (Plaquenil) 200 mg BID PO Last administered on 09:30; Admin Dose 200 MG; Start 03/04/16 at 21:00 Levetiracetam (Keppra) 1,000 mg BID PO Last administered on 03/09/16 09:29; Admin Dose 1,000 MG; Start 03/04/16 at 21:00 Ondansetron HCl (Zofran Inj) 4 mg Q6H PRN IV NAUSEA AND/OR VOMITING; Start at 15:00 Acetaminophen (Tylenol Tab) 650 mg Q6H PRN PO PAIN LEVEL 1-3 OR FEVER; Start at 15:00 Morphine Sulfate (morphine) 2 mg Q4H PRN IV PAIN LEVEL 7-10 Last administered on 03/09/16 09:22; Admin Dose 2 MG; Start 03/04/16 at 15:00 Docusate Sodium (Colace) 100 mg Q12H PRN PO CONSTIPATION; Start 03/04/16 at 15: 00 Magnesium Hydroxide (Milk Of Mag) 30 ml DAILY PRN PO CONSTIPATION Last administered on 03/08/16 08:29; Admin Dose 30 ML; Start 03/04/16 at 15:00 Bisacodyl (Dulcolax Supp) 10 mg DAILY PRN [place] CONSTIPATION; Start 03/04/16 at 15 :00 Pantoprazole (Protonix Tab) 40 mg DAILY@06 PO Last administered on 03/09/16 05 :35; Admin Dose 40 MG; Start 03/05/16 at 06:00 Carbamazepine (Tegretol Xr) 400 mg TID PO Last administered on 03/09/16 09:29 ; Admin Dose 400 MG; Start 03/04/16 at 15:06 Piroxicam (Feldene) 20 mg DAILY PO Last administered on 03/09/16 09:56; Admin Dose 20 MG; Start 03/05/16 at 09:00 Aspirin (Aspirin) 325 mg BID PO Last administered on 03/09/16 09:28; Admin Dose 325 MG; Start 03/06/16 at 21:00; Stop 04/17/16 at 09:01 Acetaminophen/ Hydrocodone Bitart ([place] (5/325)) 1 tab Q6H PRN PO PAIN; Start 03/06/16 at 13:00 Loratadine (Claritin) 10 mg DAILY PO Last administered on 03/09/16 09:28; Admin Dose 10 MG; Start 03/06/16 at 18:24 Amlodipine Besylate (Norvasc) 10 mg DAILY PO Last administered on 03/09/16 09: 29; Admin Dose 10 MG; Start 03/07/16 at 13:00 Hydralazine HCl (Apresoline) 25 mg TID PRN PO ELEVATED BLOOD PRESSURE Last administered on 03/07/16 23:15; Admin Dose 25 MG; Start 03/07/16 at 13:00 Lisinopril (Zestril) 40 mg DAILY PO Last administered on 03/09/16 09:29; Admin Dose 40 MG; Start 03/07/16 at 13:00 Methyldopa (Aldomet) 500 mg BID PO Last administered on 03/09/16 09:28; Admin Dose 500 MG; Start 03/07/16 at 21:00 Diphenhydramine HCl 25 mg 25 mg HS PO Last administered on 03/08/16 21:52; Admin Dose 25 MG; Start 03/07/16 at 21:00 Magnesium Sulfate (Magnesium Sulfate 4 Gm/100 ml) 100 ml @ 25 mls/hr ONCE IVPB ; Start 03/09/16 at 11:00; Stop 03/09/16 at 14:59 AMBROSE RENEE Mar 09, 2016 13:11
--- NOTE | 2016-03-09 13:13 | PDOCDIS ---
Discharge Instructions CONDITION Patient Condition: Good HOME CARE INSTRUCTIONS: Special Diet: LOW NA DIET. ACTIVITY: Activity Restrictions: Slowly Increase Activity FOLLOW UP/APPOINTMENTS Appointments Follow up with Dr Lane within 2 weeks Follow up with Dr Cummings while in [facility] Mar 09, 2016 13:13
[2016-03-09] MEDS ORDERED: HYDROCODONE/APAP (10/325) TAB PO PRN ×2 (13:30)
[2016-03-09 14:18] VITALS: BP 124/58; PULSE 78; RESP 18
--- NOTE | 2016-03-10 05:46 | DS ---
DATE OF ADMISSION: 03/04/2016 DATE OF DISCHARGE: 03/09/2016 PRIMARY CARE PHYSICIAN: Dr. Calderón. PRIMARY NEUROLOGIST: Dr. Hernandez. CONSULTANTS DURING THIS ADMISSION: 1. Lucas Silveira MD, orthopedic surgery. 2. Dr. Noe from Cardiology. CHIEF COMPLAINT ON ADMISSION: Status post fall with right hip pain. BRIEF HISTORY OF PRESENTING ILLNESS: This is a 60-year-old female with history of seizure disorder, hypertension, rheumatoid arthritis, chronic pain, chronic hyponatremia, who presented to the emerge ncy department post fall with right hip pain. She was found to have comminuted, impacted intertroch anteric fracture of the right hip. The patient was admitted to a telemetry bed for orthopedic surge ry evaluation but also because she was found to have elevated creatinine consistent with acute kidne y injury and elevated white blood cell count with unclear etiology. HOSPITAL COURSE: The patient was admitted to telemetry. Her cardiac enzymes were checked and she c hood back with elevated total CK and elevated troponins. She was treated for mild rhabdomyolysis wit h IV fluids, Pelaez catheter placement and monitoring of her renal function, which went back to curry l within 48 hours. She had serial cardiac enzymes and an echocardiogram. Her cardiac enzymes did t rend back down to normal. She had a Lexiscan stress test which came back negative; [facility] She had a right hip cephalomedullary nailing done. P ostoperatively, her pain was controlled. Her hemoglobin did trend down to 7.7, requiring 2 units of packed red blood cells. Her hemoglobin today is up to 10.4. Her electrolytes had to be repleted t chery with 4 grams of magnesium, along with potassium. She has chronic hyponatremia and her sodium l evel at baseline is around 130. She does have chronic pain, narcotic dependent, and her pain has be en controlled here. Her leukocytosis did resolve at this point. The patient is discharged to acute rehab for rehabilitation post right hip surgery. I have signed off to Dr. Cummings who will take o tyrone care while the patient is in acute rehabilitation. DISPOSITION: Discharged to acute rehabilitation. DISCHARGE CONDITION: Stable. DISCHARGE DIET: Low sodium diet. DISCHARGE ACTIVITY: Progressive ambulation and weightbearing as tolerated. DISCHARGE DIAGNOSES 1. Right hip fracture status post right hip cephalomedullary nailing. 2. Acute kidney injury. 3. Elevated troponin, negative stress test. 4. Severe hypertension. 5. Chronic hyponatremia. 6. Seizure disorder. 7. Chronic pain. 8. Leukocytosis, resolved. 9. Acute anemia postoperatively, resolved, post blood transfusion. DISCHARGE MEDICATIONS: 1. Plaquenil 200 mg p.o. b.i.d. 2. Keppra 1000 mg p.o. b.i.d. 3. Tylenol 650 mg p.o. q.6h. p.r.n. pain. 4. Colace 100 mg p.o. q.12h. 5. Dulcolax suppository 10 mg p.o. daily p.r.n. constipation. 6. Protonix 40 mg p.o. daily. 7. Tegretol-XR 400 mg p.o. t.i.d. 8. Piroxicam 20 mg p.o. daily. 9. Aspirin 325 mg p.o. b.i.d. for 6 weeks. 10. [place] 5/325 one tab p.o. q.6h. p.r.n. pain moderate; 2 tabs q.6h. p.r.n. severe pain. 11. Claritin 10 mg p.o. daily. 12. Norvasc 10 mg p.o. daily. 13. Hydralazine 25 mg p.o. t.i.d. as needed for elevated blood pressure. 14. Zestril 40 mg p.o. daily. 15. Methyldopa 500 mg p.o. b.i.d. 16. Benadryl 25 mg p.o. at bedtime. Dictated By: AMBROSE PAREDES/DELGADO Conf#: [id number] DID#: [id number]
== END 2016-03-09 17:24 | DRG 481 ==
LOC: E/R 09:43 → TEL 12:54 → PP2 03-08 20:16
PROVIDERS: ADMIT Internal Medicine; ATTEND Internal Medicine
PROC: 0QS806Z Reposition Right Femoral Shaft with Intramedullary Internal Fixation Device, Open Approach (ICD-10-PCS; principal; 2016-03-06 09:00)
PROC: 30233N1 Transfusion of Nonautologous Red Blood Cells into Peripheral Vein, Percutaneous Approach (ICD-10-PCS; 2016-03-08)
DX: S72.141A Displaced intertrochanteric fracture of right femur, initial encounter for closed fracture (principal); N17.9 Acute kidney failure, unspecified; M62.82 Rhabdomyolysis; E87.1 Hypo-osmolality and hyponatremia; N39.0 Urinary tract infection, site not specified; M06.9 Rheumatoid arthritis, unspecified; W19.XXXA Unspecified fall, initial encounter; G40.909 Epilepsy, unspecified, not intractable, without status epilepticus; I10 Essential (primary) hypertension; Z72.0 Tobacco use; G89.29 Other chronic pain; Z79.891 Long term (current) use of opiate analgesic; D72.829 Elevated white blood cell count, unspecified; S72.121A Displaced fracture of lesser trochanter of right femur, initial encounter for closed fracture; D64.9 Anemia, unspecified
CPT/HCPCS: 36430; 71010; 73510; 73530; 73550; 73560; 76775; 78452; 80048; 80053; 80061; 81001; 81003; 82550; 82553; 83605; 83735; 83880; 84100; 84484; 85025; 85610; 85730; 86850; 86900; 86901; 86920; 87040; 87081; 87086; 93005; 93017; 93306; 96374; 96375; 97116; 97161; 97530; J1940; A9500; A9505; J0690; J0696; J1170; J1200; J1885; J1956; J2250; J2270; J2405; J2710; J2785; J3010; J3475; J3480; J7030; J7040; P9016

== ENCOUNTER 2016-03-09 17:25 | Inpatient (IN) | END 2016-03-16 18:36 | disposition home health service (06) | DRG 560 | DX: S72.141D Displaced intertrochanteric fracture of right femur, subsequent encounter for closed fracture with routine healing (principal); E87.1 Hypo-osmolality and hyponatremia; I10 Essential (primary) hypertension; W18.30XD Fall on same level, unspecified, subsequent encounter; M06.9 Rheumatoid arthritis, unspecified; G40.909 Epilepsy, unspecified, not intractable, without status epilepticus; Z79.82 Long term (current) use of aspirin; G89.29 Other chronic pain; D64.9 Anemia, unspecified; G47.00 Insomnia, unspecified ==

== ENCOUNTER 2017-04-23 23:26 | Inpatient (IN) | END 2017-05-09 22:05 | DRG 641 ==

== ENCOUNTER 2018-06-22 18:10 | Inpatient (IN) | payer MEDICARE ==
[~2018-06-22] VITALS: Ht 167.6 cm; Wt 53.4 kg
[~2018-06-22 18:10] MED LIST changes: -ACET1TAB40 PO; -AMLO-218 PO; +CARB-160 PO; -CARB200T43 PO; -HYDR-2086 PO; -HYDR-3671 PO; -HYDR200T5 PO; -LEVE100018 PO; -LISI40TA9 PO; -METH-58 PO; -PIRO-9 PO
[2018-06-22] MEDS ORDERED: KETOROLAC 30 MG INJ IM STA (21:05)
[2018-06-22] MEDS ORDERED: HYDROCODONE/APAP (5/325) TAB PO ONE (21:30)
[2018-06-22] MEDS ORDERED: PROPOFOL 200 MG INJ IV STA (21:37)
--- NOTE | 2018-06-22 22:21 | EN ---
Date/Time of Note Date/Time of Note DATE: 06/22/18 TIME: 22:20 ER Progress Note 2119: Initial orders placed. Care of patient transferred to Dr. Arriaza. Patient with obvious dislocated left hip. CHERYL. IDANIA HI NP June 22, 2018 22:21
[2018-06-22] MEDS ORDERED: morphine 4 MG/ML VIAL IV ONE (22:52)
[2018-06-22] MEDS ORDERED: ONDANSETRON 4 MG INJ IV ONE (22:52)
--- NOTE | 2018-06-22 23:49 | HP ---
Date/Time of Note Date/Time of Note DATE: 06/22/18 TIME: 23:49 Assessment/Plan VTE Prophylaxis Pharmacological prophylaxis: heparin Lines/Catheters IV Catheter Type (from Nrsg): Saline Lock Assessment/Plan Assessment/Plan IMPRESSION 63-year-old female with a history of hypertension, rheumatoid arthritis, seizure, lower back pain, history of frequent falls and history of left total hip replacement presents the ER status post fall with imaging showing complete left hip replacement with dislocation of the acetabular component and comminuted fracture involving the right pubic ramus, suggesting subacute fractures PLAN -Pain management -Awaiting Ortho evaluation -Continue seizure med -PT eval when cleared by Ortho -DVT prophylaxis Result Diagram: 06/22/18 2313 06/22/18 2313 Results 24hrs Laboratory Tests Test 06/22/18 23:13 White Blood Count 9.0 # Red Blood Count 3.41 #L Hemoglobin 11.1 #L Hematocrit 32.9 #L Mean Corpuscular Volume 96.5 Mean Corpuscular Hemoglobin 32.6 Mean Corpuscular Hemoglobin Concent 33.7 Red Cell Distribution Width 14.6 H Platelet Count 241 # Mean Platelet Volume 8.5 Immature Granulocytes % 0.300 Neutrophils % 86.5 H Lymphocytes % 4.1 L Monocytes % 8.3 Eosinophils % 0.4 Basophils % 0.4 Nucleated Red Blood Cells % 0.0 Immature Granulocytes # 0.030 Neutrophils # 7.8 H Lymphocytes # 0.4 L Monocytes # 0.8 Eosinophils # 0.0 Basophils # 0.0 Nucleated Red Blood Cells # 0.0 Prothrombin Time 13.5 Prothrombin Time Ratio 1.1 INR International Normalized Ratio 1.02 Sodium Level 136 Potassium Level 3.4 L Chloride Level 102 Carbon Dioxide Level 28 Anion Gap 6 Blood Urea Nitrogen 18 Creatinine 0.37 L Est Glomerular Filtrat Rate mL/min > 60 Glucose Level 92 Calcium Level 8.6 Total Bilirubin 0.0 L Direct Bilirubin 0.00 Indirect Bilirubin 0.0 Aspartate Amino Transf (AST/SGOT) 35 Alanine Aminotransferase (ALT/SGPT) 25 Alkaline Phosphatase 286 H Total Protein 6.1 Albumin 3.4 Globulin 2.70 Albumin/Globulin Ratio 1.25 HPI/ROS Admit Date/Time Admit Date/Time Hx of Present Illness This is a 63-year-old female with a history of hypertension, rheumatoid arthritis, seizure, lower back pain, history of frequent falls and history of left total hip replacement. Patient presented to ER complaining of left hip/lower extremity pain status post a ground-level fall. Denied chest pain, shortness of breath, lightheadedness, palpitation prior to her fall. When she presented to ER, chest x-ray and CT shows the following. Hip/femur x-ray Dislocation of both the acetabular and femoral component of the left total hip arthroplasty. Pelvic CT 1. Postoperative changes from complete left hip replacement with dislocation of the acetabular component with the femoral component still articulating with the acetabular component. The acetabular/femoral component prior dislocated 4.5 cm superiorly. 2. Comminuted fracture involving the posterior column/ischiopubic ramus of the right pelvis as well as comminuted fracture of the inferior pubic ramus/pubic bone, linear fracture in the left inferior pubic ramus and superior pubic ramus on the right. There is callous adjacent to these fractures, suggesting subacute fractures. Correlation with prior imaging is recommended to exclude new fractures. PMH/Family/Social Past Medical History Medical History: other (See HPI) Coded Allergies: No Known Allergies (Verified Allergy, Unknown, 04/24/17) Past Surgical History Past Surgical Hx: other (See HPI) Family History Significant Family History: no pertinent family hx Social History Alcohol Use: none Smoking Status: Current every day smoker Drug Use: none Exam/Review of Systems Vital Signs Vitals Vital Signs Date Temp Pulse Resp B/P (MAP) Pulse Ox O2 O2 Flow FiO2 Time Delivery Rate 06/22/18 98.0 69 18 125/71 100 Nasal 2.0 23:08 (89) Cannula Exam Constitutional: other (No acute distress) Head: normocephalic, atraumatic Eyes: EOMI, PERRL Respiratory: clear to auscultation, normal air movement Cardiovascular: regular rate and rhythm, nl pulses Gastrointestinal: soft Extremities: other (Left hip pain. Bruising also noted) ROSEMARIE POOL MD June 22, 2018 23:49
--- NOTE | 2018-06-22 23:59 | ERD ---
ER Documentation Chief Complaint Chief Complaint witnessed GLF with left leg pain. no shortening or deformity, onset 6 hrs HPI This is a 63-year-old female who presents for evaluation of ground-level fall, with left leg pain. The episode happened about 6 hours ago, she has a history of a prior hip surgery with total hip replacement that happened about 8 years ago. She suffered an abrasion to her left upper extremity, she has no range of motion issues with her left arm, she had no head or neck trauma. She is not on blood thinners. She presents with her left hip, and significant pain. She has no numbness or tingling. ROS All systems reviewed and are negative except as per history of present illness. Medications Home Meds Reported Medications Carbamazepine* (Tegretol Xr*) 200 Mg Tab.sr.12h, 400 MG PO TID, TAB.SA 04/24/17 Allergies Allergies: Coded Allergies: No Known Allergies (Verified Allergy, Unknown, 04/24/17) PMhx/Soc History of Surgery: Yes (left hip surgery) Anesthesia Reaction: No Hx Neurological Disorder: No Hx Respiratory Disorders: No Hx Cardiac Disorders: Yes (HTN) Hx Psychiatric Problems: No Hx Miscellaneous Medical Probl: Yes (See EMR for detail. ) Hx Alcohol Use: Yes Hx Substance Use: No Hx Tobacco Use: Yes Smoking Status: Current every day smoker Physical Exam Vitals Vital Signs Date Temp Pulse Resp B/P (MAP) Pulse Ox O2 O2 Flow FiO2 Time Delivery Rate 06/22/18 98.0 69 18 125/71 100 Nasal 2.0 23:08 (89) Cannula 06/22/18 100 2.0 22:25 06/22/18 98.0 75 18 130/78 98 18:12 (95) Physical Exam Const: No acute distress Head: Atraumatic Eyes: Normal Conjunctiva ENT: Normal External Ears, Nose and Mouth. Neck: Full range of motion. No meningismus. Resp: Clear to auscultation bilaterally Cardio: Regular rate and rhythm, no murmurs Abd: Soft, non tender, non distended. Normal bowel sounds Skin: No petechiae or rashes Back: No midline or flank tenderness Ext: Left hip is shortened, pulses are intact distally, skin is intact, there are no abrasions or lacerations, sensation is intact light touch Neur: Awake and alert Psych: Normal Mood and Affect Result Diagram: 06/22/18231206/22/182312 Results 24 hrs Laboratory Tests Test 06/22/18 23:13 White Blood Count 9.0 10^3/ul Red Blood Count 3.41 10^6/ul Hemoglobin 11.1 g/dl Hematocrit 32.9 % Mean Corpuscular Volume 96.5 fl Mean Corpuscular Hemoglobin 32.6 pg Mean Corpuscular Hemoglobin Concent 33.7 g/dl Red Cell Distribution Width 14.6 % Platelet Count 241 10^3/UL Mean Platelet Volume 8.5 fl Immature Granulocytes % 0.300 % Neutrophils % 86.5 % Lymphocytes % 4.1 % Monocytes % 8.3 % Eosinophils % 0.4 % Basophils % 0.4 % Nucleated Red Blood Cells % 0.0 /100WBC Immature Granulocytes # 0.030 10^3/ul Neutrophils # 7.8 10^3/ul Lymphocytes # 0.4 10^3/ul Monocytes # 0.8 10^3/ul Eosinophils # 0.0 10^3/ul Basophils # 0.0 10^3/ul Nucleated Red Blood Cells # 0.0 10^3/ul Prothrombin Time 13.5 Sec Prothrombin Time Ratio 1.1 INR International Normalized Ratio 1.02 Sodium Level 136 mmol/L Potassium Level 3.4 mmol/L Chloride Level 102 mmol/L Carbon Dioxide Level 28 mmol/L Anion Gap 6 Blood Urea Nitrogen 18 mg/dl Creatinine 0.37 mg/dl Est Glomerular Filtrat Rate mL/min > 60 mL/min Glucose Level 92 mg/dl Calcium Level 8.6 mg/dl Total Bilirubin 0.0 mg/dl Direct Bilirubin 0.00 mg/dl Indirect Bilirubin 0.0 mg/dl Aspartate Amino Transf (AST/SGOT) 35 IU/L Alanine Aminotransferase (ALT/SGPT) 25 IU/L Alkaline Phosphatase 286 IU/L Total Protein 6.1 g/dl Albumin 3.4 g/dl Globulin 2.70 g/dl Albumin/Globulin Ratio 1.25 Current Medications Medications Dose Sig/Jose Eduardo Start Time Status Last (Trade) Ordered Route PRN Stop Time Admin Dose Reason Admin 1 tab ONCE ONCE 06/22/18 DC 06/22/18 Acetaminophen PO 21:30 06/22/18 21:17 / 21:31 Hydrocodone Bitart ([place] (5/325)) Ketorolac 30 mg ONCE STAT 06/22/18 DC 06/22/18 Tromethamine IM 21:05 06/22/18 21:17 (Toradol) 21:12 Propofol 70 mg ONCE STAT 06/22/18 DC (Diprivan) IV 21:37 06/22/18 21:39 Morphine 4 mg ONCE ONCE 06/22/18 DC 06/22/18 Sulfate IV 22:52 06/22/18 22:45 (morphine) 22:53 Ondansetron 4 mg ONCE ONCE 06/22/18 DC 06/22/18 HCl (Zofran IV 22:52 06/22/18 22:45 Inj) 22:53 1,000 ml @ Q10H IV 06/22/18 UNV Dextrose/Sodi 100 mls/hr 23:46 um Chloride IV Flush 3 ml PER 06/23/18 UNV (NS 3 ml) PROTOCOL IV 00:00 Ondansetron 4 mg Q6H PRN 06/23/18 UNV HCl (Zofran IV 00:00 Inj) NAUSEA/VOMITI NG 650 mg Q6H PRN 06/23/18 UNV Acetaminophen PO .PAIN 1-3 00:00 (Tylenol OR TEMP Tab) 1 tab Q6H PRN 06/23/18 UNV Acetaminophen PO .MOD PAIN 00:00 / 4-6 Hydrocodone Bitart ([place] (5/325)) 2 tab Q6H PRN 06/23/18 UNV Acetaminophen PO .SEVERE 00:00 / PAIN 7-10 Hydrocodone Bitart ([place] (5/325)) Heparin 5,000 unit Q12 SC 06/23/18 UNV Sodium 09:00 (Porcine) (Heparin (5000 Units/1ml)) Albuterol/ 3 ml Q2H RESP 06/23/18 UNV Ipratropium THERAPY PRN 00:00 (Duoneb) HHN SHORTNESS OF BREATH 400 mg TID PO 06/23/18 UNV Carbamazepine 09:00 (Tegretol Xr) Procedures/MDM This is a 63-year-old female presents for evaluation of left hip pain. Her x- ray shows a left hip fracture, as well as superior and inferior pubic rami fracture, attempt was made at hip reduction, there are no complications, however was unsuccessful. Thus the patient will require admission, for reduction, post procedure, she was neurovascularly intact. Accepting Care Team: Current data and ongoing care discussed. Primary: Zoila Consulting: Sheba Mascorro Data: none Hip X-ray 2V Interpreted by me: Bones: Left hip dislocation Joints: Posterior dislocation of the hip joint Foreign body: None Procedural Sedation: Pre-assessment performed. See preceding complete history and physical for details. Time out performed. See sedation documentation for details. Medication(s): Propofol Complications: No hypoxic or apneic events Recovered without incident. Greater than 15 minutes of face to face time included in sedation and recovery. Hip Reduction by me: Anesthesia: Propofol Location: Left hip Technique: Captain Singh Results: Reduction was unsuccessful Compl: Neurovascularly intact post procedure. Post-reduction X-ray elbow 2V Interpreted by me: Bones: Hip dislocated, post reduction attempt Joints: Foreign body: None Departure Diagnosis: Primary Impression: Injury of left leg Encounter type: initial encounter Qualified Codes: S89.92XA - Unspecified injury of left lower leg, initial encounter Additional Impression: Hip pain Laterality: unspecified laterality Qualified Codes: M25.559 - Pain in unspecified hip Condition: Stable AAMIR COONEY MD June 22, 2018 23:58
[2018-06-23] MEDS ORDERED: NACL 0.9% 3 ML SYG IV SCH
[2018-06-23] MEDS ORDERED: ACETAMINOPHEN 325 MG TAB PO PRN
[2018-06-23] MEDS ORDERED: ONDANSETRON 4 MG INJ IV PRN
[2018-06-23] MEDS ORDERED: ALBUTEROL/IPRATROPIUM (NEB) 3 ML AMP HHN PRN
[2018-06-23] MEDS ORDERED: HYDROmorphONE 0.5 MG/0.5 ML SYG IV STA (00:06)
[2018-06-23] MEDS ORDERED: ONDANSETRON 4 MG INJ IV STA (00:06)
[2018-06-23] MEDS: METHYLDOPA 250 MG TAB PO SCH ×2 (00:09→23:09)
[2018-06-23] MEDS ORDERED: BACITRACIN 0.9 GM OINT TOP ONE (01:00)
[2018-06-23 01:15] VITALS: BP 143/75; PULSE 65; RESP 17
[2018-06-23] MEDS: DEXTROSE 5%-0.45% NACL 1,000 ML IV SCH ×3 (02:14→19:46)
[2018-06-23] MEDS: HYDROCODONE/APAP (5/325) TAB PO PRN ×3 (02:14→22:14)
[2018-06-23 06:38] VITALS: Ht 167.6 cm; Wt 53.4 kg
[2018-06-23 07:13] VITALS: BP 139/63; PULSE 67; RESP 18
[2018-06-23] MEDS: carBAMAZepine (XR) 200 MG TABSR PO SCH ×3 (09:12→22:09)
[2018-06-23] MEDS: HEPARIN 5,000 UNIT/1 ML VIAL SC SCH ×2 (09:15→22:19)
--- NOTE | 2018-06-23 12:01 | PN ---
Date/Time of Note Date/Time of Note DATE: 06/23/18 TIME: 11:53 Assessment/Plan VTE Prophylaxis Risk score (from Nsg)>0 risk: 3 SCD applied (from Nsg): Yes Lines/Catheters IV Catheter Type (from Nrsg): Peripheral IV Assessment/Plan Assessment/Plan - status post fall with imaging showing complete left hip replacement with dislocation of the acetabular component and comminuted fracture involving the right pubic ramus, suggesting - - subacute fractures 2/2 to above - Ortho consult - fall precautions - hypertension -rheumatoid arthritis, -seizure - seizure precautions - lower back pain -history of frequent falls -history of left total hip replacement Result Diagram: 06/22/18 2313 06/22/18 2313 Results 24hrs Laboratory Tests Test 06/22/18 23:13 White Blood Count 9.0 # Red Blood Count 3.41 #L Hemoglobin 11.1 #L Hematocrit 32.9 #L Mean Corpuscular Volume 96.5 Mean Corpuscular Hemoglobin 32.6 Mean Corpuscular Hemoglobin Concent 33.7 Red Cell Distribution Width 14.6 H Platelet Count 241 # Mean Platelet Volume 8.5 Immature Granulocytes % 0.300 Neutrophils % 86.5 H Lymphocytes % 4.1 L Monocytes % 8.3 Eosinophils % 0.4 Basophils % 0.4 Nucleated Red Blood Cells % 0.0 Immature Granulocytes # 0.030 Neutrophils # 7.8 H Lymphocytes # 0.4 L Monocytes # 0.8 Eosinophils # 0.0 Basophils # 0.0 Nucleated Red Blood Cells # 0.0 Prothrombin Time 13.5 Prothrombin Time Ratio 1.1 INR International Normalized Ratio 1.02 Sodium Level 136 Potassium Level 3.4 L Chloride Level 102 Carbon Dioxide Level 28 Anion Gap 6 Blood Urea Nitrogen 18 Creatinine 0.37 L Est Glomerular Filtrat Rate mL/min > 60 Glucose Level 92 Calcium Level 8.6 Total Bilirubin 0.0 L Direct Bilirubin 0.00 Indirect Bilirubin 0.0 Aspartate Amino Transf (AST/SGOT) 35 Alanine Aminotransferase (ALT/SGPT) 25 Alkaline Phosphatase 286 H Troponin I 0.049 Total Protein 6.1 Albumin 3.4 Globulin 2.70 Albumin/Globulin Ratio 1.25 Exam/Review of Systems Exam Vitals Vital Signs Date Temp Pulse Resp B/P (MAP) Pulse Ox O2 O2 Flow FiO2 Time Delivery Rate 06/23/18 98.3 67 18 139/63 92 07:13 (88) 06/23/18 Room Air 01:15 06/22/18 2.0 23:08 Intake and Output 06/22/18 06/22/18 06/23/18 1414:59 22:59 06:59 IntakeIntake Total 350 ml BalanceBalance 350 ml Results Results 24hrs Laboratory Tests Test 06/22/18 23:13 White Blood Count 9.0 # Red Blood Count 3.41 #L Hemoglobin 11.1 #L Hematocrit 32.9 #L Mean Corpuscular Volume 96.5 Mean Corpuscular Hemoglobin 32.6 Mean Corpuscular Hemoglobin Concent 33.7 Red Cell Distribution Width 14.6 H Platelet Count 241 # Mean Platelet Volume 8.5 Immature Granulocytes % 0.300 Neutrophils % 86.5 H Lymphocytes % 4.1 L Monocytes % 8.3 Eosinophils % 0.4 Basophils % 0.4 Nucleated Red Blood Cells % 0.0 Immature Granulocytes # 0.030 Neutrophils # 7.8 H Lymphocytes # 0.4 L Monocytes # 0.8 Eosinophils # 0.0 Basophils # 0.0 Nucleated Red Blood Cells # 0.0 Prothrombin Time 13.5 Prothrombin Time Ratio 1.1 INR International Normalized Ratio 1.02 Sodium Level 136 Potassium Level 3.4 L Chloride Level 102 Carbon Dioxide Level 28 Anion Gap 6 Blood Urea Nitrogen 18 Creatinine 0.37 L Est Glomerular Filtrat Rate mL/min > 60 Glucose Level 92 Calcium Level 8.6 Total Bilirubin 0.0 L Direct Bilirubin 0.00 Indirect Bilirubin 0.0 Aspartate Amino Transf (AST/SGOT) 35 Alanine Aminotransferase (ALT/SGPT) 25 Alkaline Phosphatase 286 H Troponin I 0.049 Total Protein 6.1 Albumin 3.4 Globulin 2.70 Albumin/Globulin Ratio 1.25 Medications Medication Current Medications Dextrose/Sodium Chloride 1,000 ml @ 100 mls/hr Q10H IV Last administered on 06/23/18at 09:54; Admin Dose 100 MLS/HR; Start 06/22/18 at 23:46 IV Flush (NS 3 ml) 3 ml PER PROTOCOL IV ; Start 06/23/18 at 00:00 Ondansetron HCl (Zofran Inj) 4 mg Q6H PRN IV NAUSEA/VOMITING; Start 06/23/18 at 00:00 Acetaminophen (Tylenol Tab) 650 mg Q6H PRN PO .PAIN 1-3 OR TEMP; Start 06/23/18 at 00:00 Acetaminophen/ Hydrocodone Bitart ([place] (5/325)) 1 tab Q6H PRN PO .MOD PAIN 4- 6; Start 06/23/18 at 00:00 Acetaminophen/ Hydrocodone Bitart ([place] (5/325)) 2 tab Q6H PRN PO .SEVERE PAIN 7-10 Last administered on 06/23/18at 02:14; Admin Dose 2 TAB; Start 06/23/18 at 00:00 Heparin Sodium (Porcine) (Heparin (5000 Units/1ml)) 5,000 unit Q12 SC Last administered on 06/23/18at 09:15; Admin Dose 5,000 UNIT; Start 06/23/18 at 09:00 Albuterol/ Ipratropium (Duoneb) 3 ml Q2H RESP THERAPY PRN HHN SHORTNESS OF BREATH; Start 06/23/18 at 00:00 Carbamazepine (Tegretol Xr) 400 mg TID PO Last administered on 06/23/18at 09:12; Admin Dose 400 MG; Start 06/23/18 at 09:00 JANNA MOYA June 23, 2018 12:01
[2018-06-23] MEDS ORDERED: LISI40TA3 PO (12:24)
[2018-06-23] MEDS ORDERED: HYDR-3027 PO (12:24)
[2018-06-23] MEDS ORDERED: AMLO-147 PO (12:24)
[2018-06-23] MEDS ORDERED: HYDR-3672 PO (12:24)
[2018-06-23] MEDS ORDERED: HYDR200T5 PO (12:24)
[2018-06-23] MEDS ORDERED: METH500T24 PO (12:24)
[2018-06-23] MEDS: LEVETIRACETAM 500 MG TAB PO SCH ×2 (12:36→22:08)
[2018-06-23 13:57] VITALS: BP 160/72; PULSE 65; RESP 18
[2018-06-23 19:15] VITALS: BP 146/68; PULSE 76; RESP 18
[2018-06-23] MEDS ORDERED: METHYLDOPA 500 MG TAB PO SCH ×2 (21:00)
--- NOTE | 2018-06-23 22:04 | CONS ---
DATE OF ADMISSION: 06/22/2018 DATE OF CONSULTATION: 06/23/2018 HISTORY OF PRESENT ILLNESS: The patient is a 63-year-old female who was admitted on 06/22/2018 when she came to the emergency room complaining of severe pain involving her left hip following a fall on the left hip. She obviously had a surgery over both the hip, left side about 2 years ago following a fracture. She claims that she has been having pain around the left hip ever since her surgery. Bec ause of the obvious shortening of the left lower extremity a question was raised if she was aware of the fact that her left leg has been short or not and her pain was not definite, however, she keeps cl aiming that she has been having pain involving her left hip and left lower extremity for a long time. PHYSICAL EXAMINATION: My examination revealed a 63-year-old female who is not in any acute distress; however, there was an obvious tenderness and swelling around the left hip and attempted range of mot ion was provoking considerable pain and discomfort. There is an obvious shortening and abnormal rota tion of the left lower extremity. There were no signs of acute neurovascular compromise involving th e left lower extremity. IMAGING STUDIES: X-rays of the left hip and pelvis revealed that there is an obvious dislocation of the hemiarthroplasty of the left hip are of acetabular cavity. There was no disassociation of the he miarthroplasty prosthesis itself. There was no obvious fracture around the left pelvis. There was a n obvious previous fracture of acetabular fracture of the right hip, which was treated with the open reduction and internal fixation. CT scan revealed old healed pelvic fractures around the right pelvis and obvious dislocation of the l eft hip joint, which was treated with hemiarthroplasty of the left hip in the past. DIAGNOSTIC IMPRESSION: Dislocation of the left hip, which she was treated with hemiarthroplasty of t he left hip in the past. The dislocation is at least after April 2017 when the x-rays of the pelvis show intact hemiarthroplasty prosthesis in the left hip without any dislocation. Traumatic dislocation of the left hip from the posterior dislocation of the bipolar hip prosthesis fr om the acetabulum in the left hip, rule out possible old neglected fracture. RECOMMENDATIONS FOR TREATMENT: Examination of the left hip with the patient under anesthesia and und er the fluoroscopic monitoring. If closed reduction is not successful, she may need to be transferre d to a major medical center for higher level of care including revision procedures. Dictated By: DIMITRI COKER MD IK/NTS Conf#: [id number] DID#: [id number] CC: ROSEMARIE POOL MD; DAKOTAH CARRANZA MD; ROXANNE BULLARD MD;*EndCC*
[2018-06-23] MEDS ORDERED: LISINOPRIL 5 MG TAB PO ONE (22:30)
[2018-06-24] MEDS: DEXTROSE 5%-0.45% NACL 1,000 ML IV SCH ×3 (01:10→21:58)
[2018-06-24 02:05] VITALS: BP 179/82; PULSE 68; RESP 16
[2018-06-24 03:00] VITALS: BP 154/76; PULSE 71; RESP 17
[2018-06-24] MEDS: HYDROCODONE/APAP (5/325) TAB PO PRN ×4 (04:36→22:32)
[2018-06-24 07:34] VITALS: BP_SYST 137; BP_SYST 187; BP_DIAS 84; PULSE 65; RESP 18
[2018-06-24] MEDS: carBAMAZepine (XR) 200 MG TABSR PO SCH ×3 (08:35→20:16)
[2018-06-24] MEDS: METHYLDOPA 250 MG TAB PO SCH ×2 (08:35→20:17)
[2018-06-24] MEDS: AMLODIPINE 10 MG TAB PO SCH (08:36)
[2018-06-24] MEDS: LEVETIRACETAM 500 MG TAB PO SCH ×2 (08:36→20:17)
[2018-06-24] MEDS ORDERED: LISINOPRIL 20 MG TAB PO SCH (09:00)
[2018-06-24] MEDS: HEPARIN 5,000 UNIT/1 ML VIAL SC SCH ×2 (09:00→21:00)
[2018-06-24 11:28] VITALS: BP 151/72; PULSE 76
[2018-06-24 14:11] VITALS: BP 143/70; PULSE 69; RESP 18
--- NOTE | 2018-06-24 14:27 | PN ---
Date/Time of Note Date/Time of Note DATE: 06/24/18 TIME: 14:25 Assessment/Plan VTE Prophylaxis Risk score (from Ns)>0 risk: 3 SCD applied (from Ns): Yes Lines/Catheters IV Catheter Type (from [facility]): Peripheral IV Assessment/Plan Result Diagram: 06/24/1843006/24/18 0431 Results 24hrs Laboratory Tests Test 06/24/18 04:31 06/24/18 08:29 White Blood Count 5.3 Red Blood Count 3.18 L Hemoglobin 10.3 L Hematocrit 30.5 L Mean Corpuscular Volume 95.9 Mean Corpuscular Hemoglobin 32.4 Mean Corpuscular Hemoglobin Concent 33.8 Red Cell Distribution Width 14.5 Platelet Count 235 Mean Platelet Volume 9.2 Immature Granulocytes % 0.200 Neutrophils % 71.8 Lymphocytes % 13.1 L Monocytes % 13.7 H Eosinophils % 0.8 Basophils % 0.4 Nucleated Red Blood Cells % 0.0 Immature Granulocytes # 0.010 Neutrophils # 3.8 Lymphocytes # 0.7 L Monocytes # 0.7 Eosinophils # 0.0 Basophils # 0.0 Nucleated Red Blood Cells # 0.0 Sodium Level 133 L Potassium Level 3.2 L Chloride Level 100 Carbon Dioxide Level 28 Anion Gap 5 Blood Urea Nitrogen 11 Creatinine 0.40 L Est Glomerular Filtrat Rate mL/min > 60 Glucose Level 101 Calcium Level 7.9 L Bedside Glucose 111 Subjective 24 Hr Interval Summary Respiratory: no complaints Cardiovascular: no complaints Gastrointestinal: no complaints Genitourinary: no complaints Musculoskeletal: bone/joint pain, restricted range of motion Exam/Review of Systems Exam Vitals Vital Signs Date Temp Pulse Resp B/P (MAP) Pulse Ox O2 O2 Flow FiO2 Time Delivery Rate 06/24/18 98.7 69 18 143/70 93 14:11 (94) 06/23/18 Room Air 01:15 06/22/18 2.0 23:08 Intake and Output 06/23/18 06/23/18 06/24/18 1515:00 23:00 07:00 IntakeIntake Total 300 ml 800 ml 600 ml BalanceBalance 300 ml 800 ml 600 ml Constitutional: alert, well developed Psych: nl mood/affect Eyes: nl lids, nl sclera ENMT: nl external ears & nose Neck: non-tender Respiratory: clear to auscultation Cardiovascular: nl pulses Musculoskeletal: joint tenderness, range of motion Results Results 24hrs Laboratory Tests Test 06/24/18 04:31 06/24/18 08:29 White Blood Count 5.3 Red Blood Count 3.18 L Hemoglobin 10.3 L Hematocrit 30.5 L Mean Corpuscular Volume 95.9 Mean Corpuscular Hemoglobin 32.4 Mean Corpuscular Hemoglobin Concent 33.8 Red Cell Distribution Width 14.5 Platelet Count 235 Mean Platelet Volume 9.2 Immature Granulocytes % 0.200 Neutrophils % 71.8 Lymphocytes % 13.1 L Monocytes % 13.7 H Eosinophils % 0.8 Basophils % 0.4 Nucleated Red Blood Cells % 0.0 Immature Granulocytes # 0.010 Neutrophils # 3.8 Lymphocytes # 0.7 L Monocytes # 0.7 Eosinophils # 0.0 Basophils # 0.0 Nucleated Red Blood Cells # 0.0 Sodium Level 133 L Potassium Level 3.2 L Chloride Level 100 Carbon Dioxide Level 28 Anion Gap 5 Blood Urea Nitrogen 11 Creatinine 0.40 L Est Glomerular Filtrat Rate mL/min > 60 Glucose Level 101 Calcium Level 7.9 L Bedside Glucose 111 Medications Medication Current Medications Dextrose/Sodium Chloride 1,000 ml @ 100 mls/hr Q10H IV Last administered on 06/24/18at 11:46; Admin Dose 100 MLS/HR; Start 06/22/18 at 23:46 IV Flush (NS 3 ml) 3 ml PER PROTOCOL IV ; Start 06/23/18 at 00:00 Ondansetron HCl (Zofran Inj) 4 mg Q6H PRN IV NAUSEA/VOMITING; Start 06/23/18 at 00:00 Acetaminophen (Tylenol Tab) 650 mg Q6H PRN PO .PAIN 1-3 OR TEMP; Start 06/23/18 at 00:00 Acetaminophen/ Hydrocodone Bitart ([place] (5/325)) 1 tab Q6H PRN PO .MOD PAIN 4- 6; Start 06/23/18 at 00:00 Acetaminophen/ Hydrocodone Bitart ([place] (5/325)) 2 tab Q6H PRN PO .SEVERE PAIN 7-10 Last administered on 06/24/18at 11:46; Admin Dose 2 TAB; Start 06/23/18 at 00:00 Heparin Sodium (Porcine) (Heparin (5000 Units/1ml)) 5,000 unit Q12 SC Last administered on 06/23/18 22:19; Admin Dose 5,000 UNIT; Start 06/23/18 at 09:00 Albuterol/ Ipratropium (Duoneb) 3 ml Q2H RESP THERAPY PRN HHN SHORTNESS OF BREATH; Start 06/23/18 at 00:00 Carbamazepine (Tegretol Xr) 400 mg TID PO Last administered on 06/24/18 12:58; Admin Dose 400 MG; Start 06/23/18 at 09:00 Levetiracetam (Keppra) 1,000 mg BID PO Last administered on 06/24/18 08:36; Admin Dose 1,000 MG; Start 06/23/18 at 12:30 Hydralazine HCl (Apresoline) 100 mg Q8 PO Last administered on 06/24/18 12:57; Admin Dose 100 MG; Start 06/23/18 at 15:00 Amlodipine Besylate (Norvasc) 10 mg DAILY PO Last administered on 06/24/18 08:36; Admin Dose 10 MG; Start 06/24/18 at 09:00 Methyldopa (Aldomet) 500 mg BID PO Last administered on 06/24/18 08:35; Admin Dose 500 MG; Start 06/23/18 at 21:00 Lisinopril (Zestril) 40 mg HS PO ; Start 06/24/18 at 21:00 JANNA MOYA June 24, 2018 14:27
--- NOTE | 2018-06-24 14:45 | CONS ---
Consultation Date/Type/Reason Admit Date/Time Type of Consult Cardiology Date/Time of Note DATE: 06/24/18 TIME: 14:43 Hx of Present Illness 63 yo with HTN, normal Stress test prior - no chest pain/ not in CHF - unrepaired hip fracture carries very high morbidity and mortality - OK to proceed with surgery - will notify DR. Sheba valadez - Full note dictated # [id number] Past Medical History Home Meds Reported Medications Hydrocodone Bit/Acetaminophen (Vicodin HP 10-300) 1 Each Tablet, 1 TAB PO Q4H PRN for PAIN, TAB 06/23/18 Hydralazine Hcl* (Hydralazine Hcl*) 50 Mg Tab, 100 MG PO TID, #180 TAB 06/23/18 Methyldopa* (Methyldopa*) 500 Mg Tablet, 500 MG PO BID, TAB 06/23/18 Amlodipine Besylate* (Amlodipine Besylate*) 10 Mg Tablet, 10 MG PO DAILY, #30 TAB 06/23/18 Lisinopril* (Lisinopril*) 40 Mg Tablet, 40 MG PO DAILY, #30 TAB 06/23/18 Hydroxychloroquine Sulfate* (Plaquenil*) 200 Mg Tab, 200 MG PO BID, TAB 06/23/18 Carbamazepine* (Tegretol Xr*) 200 Mg Tab.sr.12h, 400 MG PO TID, TAB.SA 04/24/17 Medications Current Medications Dextrose/Sodium Chloride 1,000 ml @ 100 mls/hr Q10H IV Last administered on 06/24/18at 11:46; Admin Dose 100 MLS/HR; Start 06/22/18 at 23:46 IV Flush (NS 3 ml) 3 ml PER PROTOCOL IV ; Start 06/23/18 at 00:00 Ondansetron HCl (Zofran Inj) 4 mg Q6H PRN IV NAUSEA/VOMITING; Start 06/23/18 at 00:00 Acetaminophen (Tylenol Tab) 650 mg Q6H PRN PO .PAIN 1-3 OR TEMP; Start 06/23/18 at 00:00 Acetaminophen/ Hydrocodone Bitart ([place] (5/325)) 1 tab Q6H PRN PO .MOD PAIN 4- 6; Start 06/23/18 at 00:00 Acetaminophen/ Hydrocodone Bitart ([place] (5/325)) 2 tab Q6H PRN PO .SEVERE PAIN 7-10 Last administered on 06/24/18 11:46; Admin Dose 2 TAB; Start 06/23/18 at 00:00 Heparin Sodium (Porcine) (Heparin (5000 Units/1ml)) 5,000 unit Q12 SC Last administered on 06/23/18at 22:19; Admin Dose 5,000 UNIT; Start 06/23/18 at 09:00 Albuterol/ Ipratropium (Duoneb) 3 ml Q2H RESP THERAPY PRN HHN SHORTNESS OF BREATH; Start 06/23/18 at 00:00 Carbamazepine (Tegretol Xr) 400 mg TID PO Last administered on 06/24/18 12:58; Admin Dose 400 MG; Start 06/23/18 at 09:00 Levetiracetam (Keppra) 1,000 mg BID PO Last administered on 06/24/18 08:36; Admin Dose 1,000 MG; Start 06/23/18 at 12:30 Hydralazine HCl (Apresoline) 100 mg Q8 PO Last administered on 06/24/18 12:57; Admin Dose 100 MG; Start 06/23/18 at 15:00 Amlodipine Besylate (Norvasc) 10 mg DAILY PO Last administered on 06/24/18 08:36; Admin Dose 10 MG; Start 06/24/18 at 09:00 Methyldopa (Aldomet) 500 mg BID PO Last administered on 06/24/18 08:35; Admin Dose 500 MG; Start 06/23/18 at 21:00 Lisinopril (Zestril) 40 mg HS PO ; Start 06/24/18 at 21:00 Allergies: Coded Allergies: No Known Allergies (Verified Allergy, Unknown, 04/24/17) Past Surgical History Past Surgical Hx: other (See HPI) Social History Alcohol Use: none Smoking Status: Current some day smoker Drug Use: none Exam/Review of Systems Vital Signs Vitals Vital Signs Date Temp Pulse Resp B/P (MAP) Pulse Ox O2 O2 Flow FiO2 Time Delivery Rate 06/24/18 98.7 69 18 143/70 93 14:11 (94) 06/23/18 Room Air 01:15 06/22/18 2.0 23:08 Intake and Output 06/23/18 06/23/18 06/24/18 1414:59 22:59 06:59 IntakeIntake Total 300 ml 800 ml 600 ml BalanceBalance 300 ml 800 ml 600 ml Labs Result Diagram: 06/24/18 0431 06/24/18 0431 Results 24hrs Laboratory Tests Test 06/24/18 04:31 06/24/18 08:29 White Blood Count 5.3 Red Blood Count 3.18 L Hemoglobin 10.3 L Hematocrit 30.5 L Mean Corpuscular Volume 95.9 Mean Corpuscular Hemoglobin 32.4 Mean Corpuscular Hemoglobin Concent 33.8 Red Cell Distribution Width 14.5 Platelet Count 235 Mean Platelet Volume 9.2 Immature Granulocytes % 0.200 Neutrophils % 71.8 Lymphocytes % 13.1 L Monocytes % 13.7 H Eosinophils % 0.8 Basophils % 0.4 Nucleated Red Blood Cells % 0.0 Immature Granulocytes # 0.010 Neutrophils # 3.8 Lymphocytes # 0.7 L Monocytes # 0.7 Eosinophils # 0.0 Basophils # 0.0 Nucleated Red Blood Cells # 0.0 Sodium Level 133 L Potassium Level 3.2 L Chloride Level 100 Carbon Dioxide Level 28 Anion Gap 5 Blood Urea Nitrogen 11 Creatinine 0.40 L Est Glomerular Filtrat Rate mL/min > 60 Glucose Level 101 Calcium Level 7.9 L Bedside Glucose 111 Medications Medications Current Medications Dextrose/Sodium Chloride 1,000 ml @ 100 mls/hr Q10H IV Last administered on 06/24/18at 11:46; Admin Dose 100 MLS/HR; Start 06/22/18 at 23:46 IV Flush (NS 3 ml) 3 ml PER PROTOCOL IV ; Start 06/23/18 at 00:00 Ondansetron HCl (Zofran Inj) 4 mg Q6H PRN IV NAUSEA/VOMITING; Start 06/23/18 at 00:00 Acetaminophen (Tylenol Tab) 650 mg Q6H PRN PO .PAIN 1-3 OR TEMP; Start 06/23/18 at 00:00 Acetaminophen/ Hydrocodone Bitart ([place] (5/325)) 1 tab Q6H PRN PO .MOD PAIN 4- 6; Start 06/23/18 at 00:00 Acetaminophen/ Hydrocodone Bitart ([place] (5/325)) 2 tab Q6H PRN PO .SEVERE PAIN 7-10 Last administered on 06/24/18at 11:46; Admin Dose 2 TAB; Start 06/23/18 at 00:00 Heparin Sodium (Porcine) (Heparin (5000 Units/1ml)) 5,000 unit Q12 SC Last administered on 06/23/18at 22:19; Admin Dose 5,000 UNIT; Start 06/23/18 at 09:00 Albuterol/ Ipratropium (Duoneb) 3 ml Q2H RESP THERAPY PRN HHN SHORTNESS OF BREATH; Start 06/23/18 at 00:00 Carbamazepine (Tegretol Xr) 400 mg TID PO Last administered on 06/24/18at 12:58; Admin Dose 400 MG; Start 06/23/18 at 09:00 Levetiracetam (Keppra) 1,000 mg BID PO Last administered on 06/24/18 08:36; Admin Dose 1,000 MG; Start 06/23/18 at 12:30 Hydralazine HCl (Apresoline) 100 mg Q8 PO Last administered on 06/24/18 12:57; Admin Dose 100 MG; Start 06/23/18 at 15:00 Amlodipine Besylate (Norvasc) 10 mg DAILY PO Last administered on 06/24/18 08:36; Admin Dose 10 MG; Start 06/24/18 at 09:00 Methyldopa (Aldomet) 500 mg BID PO Last administered on 06/24/18at 08:35; Admin Dose 500 MG; Start 06/23/18 at 21:00 Lisinopril (Zestril) 40 mg HS PO ; Start 06/24/18 at 21:00 BEBE RUSH MD June 24, 2018 14:45
[2018-06-24] MEDS ORDERED: POTASSIUM CHLORIDE (SR) 20 MEQ TAB PO ONE (18:00)
[2018-06-24 20:06] VITALS: BP 138/66; PULSE 68; RESP 20
[2018-06-24] MEDS: LISINOPRIL 20 MG TAB PO SCH (20:18)
--- NOTE | 2018-06-24 20:27 | CONS ---
DATE OF ADMISSION: 06/22/2018 DATE OF CONSULTATION: 06/24/2018 REFERRING PHYSICIAN: Dimitri Scruggs MD REASON FOR EVALUATION: Preoperative assessment. HISTORY OF PRESENT ILLNESS: Mr. Guerin is a 63-year-old woman, known to me from prior admission, w ith history of hypertension, dyslipidemia, history of heart failure with preserved ejection fraction of 07/2017 echo, history of coronary artery disease with negative stress test for ischemia, who comes to the hospital now after mechanical fall with a hip fracture which required surgery. Unrepaired hi p fracture carries an extremely high morbidity and mortality. I think it would be reasonable to proc eed with surgery without any further risk stratification, especially given that the patient had a rec ent stress test that was negative. For now, conservative therapy is expected. We will try to optimi ze her with pain management and therapy and our primary care is to focus more information of her cond ition when it becomes available. PAST MEDICAL HISTORY: 1. Hypertension. 2. Dyslipidemia. 3. History of coronary artery disease with negative stress test. Ejection fraction is 49%. 4. History of renal insufficiency. 5. History of heart failure with preserved ejection fraction from 07/2017. ALLERGIES: NO KNOWN DRUG ALLERGIES. SOCIAL HISTORY: The patient does not smoke and does not drink heavily. He has a history of smoking. She does not use any drugs. FAMILY HISTORY: Positive for diabetes and hypertension, but no sudden cardiac . MEDICATIONS: 1. Lisinopril 40 mg p.o. once a day. 2. Amlodipine 10 mg p.o. once a day. 3. Methyldopa 500 b.i.d. 3. Hydralazine 800 mg once a day. 4. Albuterol inhaler. She is not on a beta rudi and I can see that she can tolerate a beta rudi for preoperative char gement. REVIEW OF SYSTEMS: CONSTITUTIONAL: No fevers, no chills, no recent weight gain. HEENT: No changes in vision or hearing. CARDIAC: No chest pain reported. RESPIRATORY: Short of breath. GASTROINTESTINAL: No nausea or vomiting. GENITOURINARY: No dysuria or hematuria. NEUROLOGIC: No focal deficits. HEMATOLOGIC: No easy bruising. PSYCHIATRIC: History of anxiety. PHYSICAL EXAMINATION: VITAL SIGNS: Temperature 97.8, heart rate 69, blood pressure 140/70. GENERAL: She is a thin woman, in no acute distress, alert and oriented x3, aware of her condition. HEAD: Normocephalic, atraumatic. Eyes anicteric. NECK: Supple. JVD 6 cm. There is no lymphadenopathy, no thyromegaly. HEART: Regular with a soft holosystolic murmur, mid sternal. LUNGS: Clear without any wheezing. ABDOMEN: Distended. Bowel sounds are present. There is no hepatosplenomegaly. GENITOURINARY: Intact. EXTREMITIES: No clubbing. Trace edema. She is painful in the right side when she fell. LABORATORY DATA: White blood cell count 5.3, hemoglobin is 10.3, platelets 235. INR is 1.0. Sodium 133, potassium 3.2, BUN 11, creatinine 0.4. Troponin is negative at 0.049. ECG read by me shows sinus rhythm with some nonspecific ST-T changes and signs of LVH. ASSESSMENT AND PLAN: 1. Preoperative assessment. The patient is here for preoperative assessment for hip surgery. Unrep aired hip surgery carries extremely high morbidity and mortality. It would reasonable for patient to proceed with surgery without any further risk stratification, especially given negative stress test with EF 45% recently. Continue to monitor. We will see if she can tolerate a small dose of perioper ative beta rudi. 2. Hypertension. Blood pressure is labile. We will see if beta rudi will help. 3. Chronic obstructive pulmonary disease. The patient has history of chronic obstructive pulmonary disease. No active wheezing at the moment. We will initiate beta rudi. 4. Hypokalemia. Continue to replace potassium as indicated. 5. Murmur. . Last echo did not show any obstructive valve disease. She tolerated surgeries b efore. We will follow clinically. 6. History of tobacco use. Discontinue tobacco use advised. I would like to thank Dr. Scruggs for referring this patient for my evaluation. Dictated By: BEBE RUSH MD ML/NTS Conf#: [id number] DID#: [id number] CC: ROXANNE BULLARD MD; DIMITRI SCRUGGS MD;*EndCC*
[2018-06-25] VITALS (32 sets, daily range): BP systolic 103–188; BP diastolic 56–94; PULSE 63–84; RESP 14–30
--- NOTE | 2018-06-25 04:49 | PN ---
Date/Time of Note Date/Time of Note DATE: 06/25/18 TIME: 04:49 Assessment/Plan VTE Prophylaxis Risk score (from Nsg)>0 risk: 3 SCD applied (from Nsg): Yes Lines/Catheters IV Catheter Type (from Nrsg): Peripheral IV Assessment/Plan Assessment/Plan - status post fall with imaging showing complete left hip replacement with dislocation of the acetabular component and comminuted fracture involving the right pubic ramus, suggesting - - subacute fractures 2/2 to above - Ortho consult - fall precautions - hypertension -rheumatoid arthritis, -seizure - seizure precautions - lower back pain -history of frequent falls -history of left total hip replacement Result Diagram: 06/24/18 0431 06/24/18 0431 Results 24hrs Laboratory Tests Test 06/24/18 08:29 Bedside Glucose 111 Subjective 24 Hr Interval Summary Free Text/Dictation FOR SURGERY TODAY Exam/Review of Systems Exam Vitals Vital Signs Date Temp Pulse Resp B/P (MAP) Pulse Ox O2 O2 Flow FiO2 Time Delivery Rate 06/25/18 98.3 63 20 135/62 98 02:26 (86) 06/23/18 Room Air 01:15 06/22/18 2.0 23:08 Intake and Output 06/24/18 06/24/18 06/25/18 1515:00 23:00 07:00 IntakeIntake Total 600 ml 1000 ml BalanceBalance 600 ml 1000 ml Results Results 24hrs Laboratory Tests Test 06/24/18 08:29 Bedside Glucose 111 Medications Medication Current Medications Dextrose/Sodium Chloride 1,000 ml @ 100 mls/hr Q10H IV Last administered on 06/24/18at 21:58; Admin Dose 100 MLS/HR; Start 06/22/18 at 23:46 IV Flush (NS 3 ml) 3 ml PER PROTOCOL IV ; Start 06/23/18 at 00:00 Ondansetron HCl (Zofran Inj) 4 mg Q6H PRN IV NAUSEA/VOMITING; Start 06/23/18 at 00:00 Acetaminophen (Tylenol Tab) 650 mg Q6H PRN PO .PAIN 1-3 OR TEMP; Start 06/23/18 at 00:00 Acetaminophen/ Hydrocodone Bitart ([place] (5/325)) 1 tab Q6H PRN PO .MOD PAIN 4- 6; Start 06/23/18 at 00:00 Acetaminophen/ Hydrocodone Bitart ([place] (5/325)) 2 tab Q6H PRN PO .SEVERE PAIN 7-10 Last administered on 06/24/18 22:32; Admin Dose 2 TAB; Start 06/23/18 at 00:00 Heparin Sodium (Porcine) (Heparin (5000 Units/1ml)) 5,000 unit Q12 SC Last administered on 06/23/18 22:19; Admin Dose 5,000 UNIT; Start 06/23/18 at 09:00 Albuterol/ Ipratropium (Duoneb) 3 ml Q2H RESP THERAPY PRN HHN SHORTNESS OF BREATH; Start 06/23/18 at 00:00 Carbamazepine (Tegretol Xr) 400 mg TID PO Last administered on 06/24/18 20:16; Admin Dose 400 MG; Start 06/23/18 at 09:00 Levetiracetam (Keppra) 1,000 mg BID PO Last administered on 06/24/18 20:17; Admin Dose 1,000 MG; Start 06/23/18 at 12:30 Hydralazine HCl (Apresoline) 100 mg Q8 PO Last administered on 06/24/18 21:09; Admin Dose 100 MG; Start 06/23/18 at 15:00 Amlodipine Besylate (Norvasc) 10 mg DAILY PO Last administered on 06/24/18 08:36; Admin Dose 10 MG; Start 06/24/18 at 09:00 Methyldopa (Aldomet) 500 mg BID PO Last administered on 06/24/18 20:17; Admin Dose 500 MG; Start 06/23/18 at 21:00 Lisinopril (Zestril) 40 mg HS PO Last administered on 06/24/18 20:18; Admin Dose 40 MG; Start 06/24/18 at 21:00 Carvedilol (Coreg) 6.25 mg BID GTB Last administered on 06/24/18 20:17; Admin Dose 6.25 MG; Start 06/24/18 at 21:00 JANNA MOYA June 25, 2018 04:49
--- NOTE | 2018-06-25 08:20 | HPN ---
Date/Time of Note Date/Time of Note DATE: 06/25/18 TIME: 08:14 Interval H&P Admission Note Pt. seen H&P reviewed: No system changes EBER COKER MD June 25, 2018 08:20
--- NOTE | 2018-06-25 08:22 | PREAC ---
Date/Time of Note Date/Time of Note DATE: 06/25/18 TIME: 08:20 Anesthesia Eval and Record Evaluation Time Pre-Procedure Interview DATE: 06/25/18 TIME: 08:20 Age 63 Sex female NPO: 8 hrs Preoperative diagnosis hip injury Planned procedure hip closed reduction Past Medical History Past Medical History: Includes Cardio: HTN, Dyslipidemia Pulm: Smoking Hx Surgery & Anesthesia Issues No known issue Meds Anticoagulation: No Beta Ines within 24 hr: No Reason Beta Ines not given: Pt. not on B-Ines Reported Medications Hydrocodone Bit/Acetaminophen (Vicodin HP 10-300) 1 Each Tablet, 1 TAB PO Q4H PRN for PAIN, TAB 06/23/18 Hydralazine Hcl* (Hydralazine Hcl*) 50 Mg Tab, 100 MG PO TID, #180 TAB 06/23/18 Methyldopa* (Methyldopa*) 500 Mg Tablet, 500 MG PO BID, TAB 06/23/18 Amlodipine Besylate* (Amlodipine Besylate*) 10 Mg Tablet, 10 MG PO DAILY, #30 TAB 06/23/18 Lisinopril* (Lisinopril*) 40 Mg Tablet, 40 MG PO DAILY, #30 TAB 06/23/18 Hydroxychloroquine Sulfate* (Plaquenil*) 200 Mg Tab, 200 MG PO BID, TAB 06/23/18 Carbamazepine* (Tegretol Xr*) 200 Mg Tab.sr.12h, 400 MG PO TID, TAB.SA 04/24/17 Current Medications Dextrose/Sodium Chloride 1,000 ml @ 100 mls/hr Q10H IV Last administered on 06/24/18at 21:58; Admin Dose 100 MLS/HR; Start 06/22/18 at 23:46 IV Flush (NS 3 ml) 3 ml PER PROTOCOL IV ; Start 06/23/18 at 00:00 Ondansetron HCl (Zofran Inj) 4 mg Q6H PRN IV NAUSEA/VOMITING; Start 06/23/18 at 00:00 Acetaminophen (Tylenol Tab) 650 mg Q6H PRN PO .PAIN 1-3 OR TEMP; Start 06/23/18 at 00:00 Acetaminophen/ Hydrocodone Bitart ([place] (5/325)) 1 tab Q6H PRN PO .MOD PAIN 4- 6; Start 06/23/18 at 00:00 Acetaminophen/ Hydrocodone Bitart ([place] (5/325)) 2 tab Q6H PRN PO .SEVERE PAIN 7-10 Last administered on 06/24/18 22:32; Admin Dose 2 TAB; Start 06/23/18 at 00:00 Heparin Sodium (Porcine) (Heparin (5000 Units/1ml)) 5,000 unit Q12 SC Last administered on 06/23/18 22:19; Admin Dose 5,000 UNIT; Start 06/23/18 at 09:00 Albuterol/ Ipratropium (Duoneb) 3 ml Q2H RESP THERAPY PRN HHN SHORTNESS OF BREATH; Start 06/23/18 at 00:00 Carbamazepine (Tegretol Xr) 400 mg TID PO Last administered on 06/24/18 20:16; Admin Dose 400 MG; Start 06/23/18 at 09:00 Levetiracetam (Keppra) 1,000 mg BID PO Last administered on 06/24/18 20:17; Admin Dose 1,000 MG; Start 06/23/18 at 12:30 Hydralazine HCl (Apresoline) 100 mg Q8 PO Last administered on 06/25/18 05:50; Admin Dose 100 MG; Start 06/23/18 at 15:00 Amlodipine Besylate (Norvasc) 10 mg DAILY PO Last administered on 06/24/18 08:36; Admin Dose 10 MG; Start 06/24/18 at 09:00 Methyldopa (Aldomet) 500 mg BID PO Last administered on 06/24/18 20:17; Admin Dose 500 MG; Start 06/23/18 at 21:00 Lisinopril (Zestril) 40 mg HS PO Last administered on 06/24/18 20:18; Admin Dose 40 MG; Start 06/24/18 at 21:00 Carvedilol (Coreg) 6.25 mg BID GTB Last administered on 06/24/18 20:17; Admin Dose 6.25 MG; Start 06/24/18 at 21:00 Meds reviewed: Yes Allergies Coded Allergies: No Known Allergies (Verified Allergy, Unknown, 04/24/17) Allergies Reviewed: Yes Labs/Studies Labs Reviewed: Reviewed by anesthesiologist Result Diagram: 06/24/1843006/24/18430 test: N/A Pre-procedure Exam Last vitals Vital Signs Date Temp Pulse Resp B/P (MAP) Pulse Ox O2 O2 Flow FiO2 Time Delivery Rate 06/25/18 98.0 75 14 157/69 100 Room Air 07:14 (98) 06/22/18 2.0 23:08 Airway: Adequate mouth opening, Adequate thyromental dist Mallampati: Mallampati IV Teeth: Normal Lung: Normal Heart: Normal ASA Physical Status ASA physical status: 3 Emergency: None Pre-operative Attestations Prior to commencing anesthesia and surgery, the patient was re-evaluated, there was verification of: *The patient's identity *The results of appropriate recent lab work and preoperative vital signs *The above evaluation not changing prior to induction *Anesthetic plan, risk benefits, alternative and complications discussed with patient/family; questions answered; patient/family understands, accepts and wishes to proceed. ANATOLY AARON DO June 25, 2018 08:22
[2018-06-25] MEDS ORDERED: MIDAZOLAM 1 MG/ML 2 ML INJ ONE (08:28)
[2018-06-25] MEDS ORDERED: PROPOFOL 20 ML ONE (08:28)
[2018-06-25] MEDS ORDERED: LIDOCAINE 1% (MDV) 20 ML INJ ONE (08:29)
[2018-06-25] MEDS ORDERED: CEFAZOLIN 1 GM INJ ONE (08:39)
[2018-06-25] MEDS ORDERED: PHENYLephrine (100 MCG/ML) 10ML SYG ONE (08:40)
[2018-06-25] MEDS ORDERED: ONDANSETRON 4 MG INJ ONE (08:40)
[2018-06-25] MEDS: HEPARIN 5,000 UNIT/1 ML VIAL SC SCH ×2 (09:00→21:02)
[2018-06-25] MEDS ORDERED: NACL 0.9% 3 ML SYG IV SCH (09:30)
[2018-06-25] MEDS ORDERED: LABETALOL HCL 20MG INJ IV PRN (09:30)
[2018-06-25] MEDS ORDERED: HYDROmorphONE 1 MG/5 ML IV SYRINGE IV PRN ×2 (09:30)
[2018-06-25] MEDS ORDERED: hydrALAzine 20 MG INJ IV PRN (09:30)
[2018-06-25] MEDS ORDERED: hydrALAzine 20 MG INJ ONE (09:40)
--- NOTE | 2018-06-25 09:47 | PAC ---
Date/Time of Note Date/Time of Note DATE: 06/25/18 TIME: 09:28 Post-Anesthesia Notes Post-Anesthesia Note Last documented vital signs Vital Signs Date Temp Pulse Resp B/P (MAP) Pulse Ox O2 O2 Flow FiO2 Time Delivery Rate 06/25/18 98.1 80 18 128/62 100 Room Air 0944 06/22/18 2.0 23:08 Activity: WNL Respiratory function: WNL Cardiovascular function: WNL Mental status: Baseline Pain reasonably controlled: Yes Hydration appropriate: Yes Nausea/Vomiting absent: Yes ANATOLY AARON DO June 25, 2018 09:47
--- NOTE | 2018-06-25 09:54 | SIPON ---
Date/Time of Note Date/Time of Note DATE: 06/25/18 TIME: 09:50 Operative Report Preoperative Diagnosis traumatic dislocation of Left hip Postoperative Diagnosis same Operation/Procedure Performed manipulative reduction of left hip Surgeon see signature line technical assistant none Anesthesia: general Estimated blood loss: none Transfusion Required none Specimen none Grafts/Implants none Complications none EBER COKER MD June 25, 2018 09:54
--- NOTE | 2018-06-25 10:40 | OPR ---
DATE OF OPERATION: 06/25/2018 PREOPERATIVE DIAGNOSIS: Traumatic dislocation of the left hip. POSTOPERATIVE DIAGNOSIS: Traumatic dislocation of the left hip. PROCEDURE PERFORMED: Closed manipulative reduction of the left hip under general anesthesia. ANESTHESIA: General anesthesia. SURGEON: Dimitri Coker MD. PROCEDURE AND FINDINGS: Under general anesthesia, the patient was placed in supine position on the t able. Initially, closed reduction was attempted with the patient in supine position; however, it was rather difficult. Because of that, the patient was then placed on her right lateral decubitus posit ion with the left side up with the pelvis immobilizer and then a manipulative reduction was carried o ut by exerting distal axial traction followed by rotational movement. Finally, with the typical clun ailyn sensation, the joint was reduced. The biplane fluoroscopy examination at this time revealed a c omplete reduction of the hip joint. While the patient is in proper position, the left hip was immobi lized in a hip spica brace. The patient tolerated the entire procedure very well and was sent to the recovery room in excellent c ondition. Dictated By: DIMITRI COKER MD IK/NTS Conf#: [id number] DID#: [id number] CC: ROSEMARIE POOL MD;*EndCC*
[2018-06-25] MEDS ORDERED: HYDROmorphONE 1 MG/5 ML IV SYRINGE IV ONE (10:42)
[2018-06-25] MEDS: DEXTROSE 5%-0.45% NACL 1,000 ML IV SCH ×2 (11:15→21:46)
[2018-06-25] MEDS: carBAMAZepine (XR) 200 MG TABSR PO SCH ×3 (11:25→20:58)
[2018-06-25] MEDS: LEVETIRACETAM 500 MG TAB PO SCH ×2 (11:25→20:58)
[2018-06-25] MEDS: AMLODIPINE 10 MG TAB PO SCH (11:26)
[2018-06-25] MEDS: METHYLDOPA 250 MG TAB PO SCH ×2 (11:26→20:58)
--- NOTE | 2018-06-25 15:34 | CONS ---
Consult Date/Type/Reason Admit Date/Time June 22, 2018 at 23:12 Initial Consult Date Date/Time of Note DATE: 06/25/18 TIME: 15:32 Subjective Pt post op - tolerated procedure well - post op care in progress now. ROS: No fever, no chills, no nausea, no vomiting, no diarrhea/constipation - con't pain Rx. Objective Vitals Vital Signs Date Temp Pulse Resp B/P (MAP) Pulse Ox O2 O2 Flow FiO2 Time Delivery Rate 06/25/18 98.2 65 14 136/68 96 Room Air 14:43 (90) 06/22/18 2.0 23:08 Intake and Output 06/24/18 06/24/18 06/25/18 1515:00 23:00 07:00 IntakeIntake Total 600 ml 1000 ml 700 ml BalanceBalance 600 ml 1000 ml 700 ml Exam General: WN/WD/NAD, AOx 3 HEENT: Unicetric/atraumatic/EOMI (follows commands) NECK: JVD elevated, no thyromegaly Lymph: no lymphadenopathy HEART: regular with no S3, II/ systolic murmur at apex LUNGS: Coarse sounds ABD: soft, NT, ND, +BS : Intact Neuro: non focal SKIN: chronic changes EXT: trace edema - post op Results/Medications Result Diagram: 06/25/18 1439 06/25/18 1439 Results 24 hrs Laboratory Tests Test 06/25/18 14:39 White Blood Count 6.0 Red Blood Count 2.91 L Hemoglobin 9.6 L Hematocrit 28.3 L Mean Corpuscular Volume 97.3 Mean Corpuscular Hemoglobin 33.0 Mean Corpuscular Hemoglobin Concent 33.9 Red Cell Distribution Width 14.6 H Platelet Count 203 Mean Platelet Volume 8.9 Immature Granulocytes % 0.300 Neutrophils % 76.3 Lymphocytes % 10.9 L Monocytes % 10.7 Eosinophils % 1.3 Basophils % 0.5 Nucleated Red Blood Cells % 0.0 Immature Granulocytes # 0.020 Neutrophils # 4.6 Lymphocytes # 0.7 L Monocytes # 0.6 Eosinophils # 0.1 Basophils # 0.0 Nucleated Red Blood Cells # 0.0 Sodium Level 132 L Potassium Level 3.5 Chloride Level 100 Carbon Dioxide Level 28 Anion Gap 4 L Blood Urea Nitrogen 5 L Creatinine 0.35 L Est Glomerular Filtrat Rate mL/min > 60 Glucose Level 183 Calcium Level 7.5 L Home Meds Reported Medications Hydrocodone Bit/Acetaminophen (Vicodin HP 10-300) 1 Each Tablet, 1 TAB PO Q4H PRN for PAIN, TAB 06/23/18 Hydralazine Hcl* (Hydralazine Hcl*) 50 Mg Tab, 100 MG PO TID, #180 TAB 06/23/18 Methyldopa* (Methyldopa*) 500 Mg Tablet, 500 MG PO BID, TAB 06/23/18 Amlodipine Besylate* (Amlodipine Besylate*) 10 Mg Tablet, 10 MG PO DAILY, #30 TAB 06/23/18 Lisinopril* (Lisinopril*) 40 Mg Tablet, 40 MG PO DAILY, #30 TAB 06/23/18 Hydroxychloroquine Sulfate* (Plaquenil*) 200 Mg Tab, 200 MG PO BID, TAB 06/23/18 Carbamazepine* (Tegretol Xr*) 200 Mg Tab.sr.12h, 400 MG PO TID, TAB.SA 04/24/17 Medications Current Medications Dextrose/Sodium Chloride 1,000 ml @ 100 mls/hr Q10H IV Last administered on 06/25/18at 11:15; Admin Dose 100 MLS/HR; Start 06/22/18 at 23:46 IV Flush (NS 3 ml) 3 ml PER PROTOCOL IV ; Start 06/23/18 at 00:00 Ondansetron HCl (Zofran Inj) 4 mg Q6H PRN IV NAUSEA/VOMITING; Start 06/23/18 at 00:00 Acetaminophen (Tylenol Tab) 650 mg Q6H PRN PO .PAIN 1-3 OR TEMP; Start 06/23/18 at 00:00 Acetaminophen/ Hydrocodone Bitart ([place] (5/325)) 1 tab Q6H PRN PO .MOD PAIN 4- 6; Start 06/23/18 at 00:00 Acetaminophen/ Hydrocodone Bitart ([place] (5/325)) 2 tab Q6H PRN PO .SEVERE PAIN 7-10 Last administered on 06/24/18at 22:32; Admin Dose 2 TAB; Start 06/23/18 at 00:00 Heparin Sodium (Porcine) (Heparin (5000 Units/1ml)) 5,000 unit Q12 SC Last administered on 06/23/18at 22:19; Admin Dose 5,000 UNIT; Start 06/23/18 at 09:00 Albuterol/ Ipratropium (Duoneb) 3 ml Q2H RESP THERAPY PRN HHN SHORTNESS OF BREATH; Start 06/23/18 at 00:00 Carbamazepine (Tegretol Xr) 400 mg TID PO Last administered on 06/25/18 11:25; Admin Dose 400 MG; Start 06/23/18 at 09:00 Levetiracetam (Keppra) 1,000 mg BID PO Last administered on 06/25/18 11:25; Admin Dose 1,000 MG; Start 06/23/18 at 12:30 Hydralazine HCl (Apresoline) 100 mg Q8 PO Last administered on 06/25/18 05:50; Admin Dose 100 MG; Start 06/23/18 at 15:00 Amlodipine Besylate (Norvasc) 10 mg DAILY PO Last administered on 06/25/18 11:26; Admin Dose 10 MG; Start 06/24/18 at 09:00 Methyldopa (Aldomet) 500 mg BID PO Last administered on 06/25/18 11:26; Admin Dose 500 MG; Start 06/23/18 at 21:00 Lisinopril (Zestril) 40 mg HS PO Last administered on 06/24/18 20:18; Admin Dose 40 MG; Start 06/24/18 at 21:00 Carvedilol (Coreg) 6.25 mg BID GTB Last administered on 06/25/18 11:25; Admin Dose 6.25 MG; Start 06/24/18 at 21:00 Hydralazine HCl (Apresoline) 5 mg PACU ORDER PRN IV HIGH BLOOD PRESSURE Last administered on 06/25/18 10:13; Admin Dose 5 MG; Start 06/25/18 at 09:30 Oxycodone HCl (Roxicodone) 5 mg Q4H PRN PO .PAIN; Start 06/25/18 at 09:30 IV Flush (NS 3 ml) 3 ml per protocol IV ; Start 06/25/18 at 09:30 Enoxaparin Sodium (Lovenox) 40 mg DAILY SC ; Start 06/26/18 at 09:00 Assessment/Plan Hospital Course (Demo Recall) 1. Preoperative assessment. The patient is here for preoperative assessment for hip surgery. Unrepaired hip surgery carries extremely high morbidity and mortality. It would reasonable for patient to proceed with surgery without any further risk stratification, especially given negative stress test with EF 45% r ecently. Continue to monitor. We will see if she can tolerate a small dose of perioperative beta rudi.POST op now - tolerated well 2. Hypertension. Blood pressure is labile. We will see if beta rudi will help. Will add rx tomorrow if needed 3. Chronic obstructive pulmonary disease. The patient has history of chronic obstructive pulmonary disease. No active wheezing at the moment. We will initiate beta rudi. 4. Hypokalemia. Continue to replace potassium as indicated. Replaced. 5. Murmur - Last echo did not show any obstructive valve disease. She tolerated surgeries before. We will follow clinically. Stable by exam. 6. History of tobacco use. Discontinue tobacco use advised. BEBE RUSH MD June 25, 2018 15:34
--- NOTE | 2018-06-25 16:15 | RADRPT ---
Echocardiogram Report Patient Name: LISHA CAPONEPatient ID: [id number] : 1955 (63y 1m)Study Date: 06/24/2018 8:14:30 AM Gender: FAccession #: [id number] Tech: [facility] [place] Location: Ref.Physician: ROXANNE BULLARD Height(Cm): 168 BSA: 1.57Weight(Kg): 53.1 Quality: AdequateAccount #: Procedures: Echocardiographic Report: Transthoracic echocardiogram with complete 2D, M-Mode, and doppler examination. Indications: Pre-op. Measurements: 2D/M Mode Doppler Measurement Value Normal Range Measurement Value Normal Range LVIDd 2D 4.4 [ 3.8 - 5.2 ] cm AV Peak Heron 1.5 [ 100.0 - 170.0 ] cm/se c LVIDs 2D 2.6 [ 2.2 - 3.5 ] cm AV Peak PG 10.0 [ 2.0 - 9.0 ] mmHg LVPWd 2D 1.3 [ 0.6 - 0.9 ] cm LVOT Peak Heron 1.3 [ 70.0 - 110.0 ] cm/sec IVSd 2D 1.3 [ 0.6 - 0.9 ] cm LVOT Peak PG 7.0 [ 2.0 - 6.0 ] mmHg AoR Diam 2D 3.3 [ 2.3 - 3.1 ] cm MV E Peak Heron 1.0 [ 60.0 - 130.0 ] cm/sec EDV 2D 86.3 [ 46.0 - 106.0 ] ml MV A Peak Heron 0.8 [ 100.0 - 120.0 ] cm/se c ESV 2D 23.7 [ 14.0 - 42.0 ] ml MV E/A 1.3 [ 0.8 - 1.5 ] ratio EF 2D 72.5 [ 54.0 - 74.0 ] percent MV PHT 87.0 [ 20.0 - 100.0 ] msec LA Dimen 2D 3.8 [ 2.7 - 3.8 ] cm MV Decel Time 296 [ 104 - 258 ] msec MV Decel Bowman 3 Lat E` Heron 0.1 [ 10.0 - 15.0 ] cm/sec Lateral E/E` 14.1 [ 1.0 - 2.0 ] ratio Med E` Heron 0.1 cm/sec MV E/A 1.3 [ 0.8 - 1.5 ] ratio MVA PHT 2.5 [ 2.0 - 4.0 ] cm2 PV Peak Heron 0.9 [ 40.0 - 80.0 ] cm/sec PV Peak PG 3.0 mmHg Findings: Left Ventricle: Normal left ventricular systolic function. Normal left ventricular cavity size. Ejection fraction is visually estimated at 65 %. Tissue Doppler/Mitral Doppler indices are probably consistent with pseudonormalization with mildly elevated left atrial pressure (Stage II diastolic dysfunction), patient did not want to Valsalva. E/E'= 16. Right Ventricle: Normal right ventricular size. Normal right ventricular systolic function. Left Atrium: The left atrium is normal in size. Right Atrium: The right atrium is normal in size. Atrial Septum: Normal atrial septum. Mitral Valve: Normal appearance of the mitral valve. Mild mitral valve regurgitation. Aortic Valve: Normal trileaflet aortic valve structure. No hemodynamically significant aortic stenosis by doppler. Left coronary cusp appears mildly calcified. Trace aortic valve regurgitation. Tricuspid Valve: Normal appearance and function of the tricuspid valve with trace physiologic regurgitation. Pulmonic Valve: Normal pulmonic valve appearance. There is trace pulmonic regurgitation. Pericardium: Small pericardial effusion. No echocardiographic evidence to suggest pericardial tamponade. Pleural effusion seen. Aorta: Normal aortic root. IVC: Normal size and normal respiratory collapse consistent with normal right atrial pressure. Pulmonary Artery: Normal pulmonary artery size. Conclusions: Normal left ventricular systolic function. Normal left ventricular cavity size. Ejection fraction is visually estimated at 65 %. Tissue Doppler/Mitral Doppler indices are probably consistent with pseudonormalization with mildly elevated left atrial pressure (Stage II diastolic dysfunction), patient did not want to Valsalva. E/E'= 16. Normal atrial septum. Normal appearance of the mitral valve. Mild mitral valve regurgitation. n. Normal appearance and function of the tricuspid valve with trace physiologic regurgitation. Small pericardial effusion. No echocardiographic evidence to suggest pericardial tamponade. Pleural effusion seen. Electronically Signed By: Joon Cartagena 2018-06-25 16:14:55 PDT
[2018-06-25] MEDS: HYDROCODONE/APAP (5/325) TAB PO PRN (19:38)
[2018-06-25] MEDS: LISINOPRIL 20 MG TAB PO SCH (20:57)
[2018-06-26 02:05] VITALS: BP 136/73; PULSE 69; RESP 16
[2018-06-26] MEDS: HYDROCODONE/APAP (5/325) TAB PO PRN ×3 (05:25→18:46)
[2018-06-26 07:11] VITALS: BP 123/62; PULSE 57; RESP 18
--- NOTE | 2018-06-26 08:58 | CONS ---
Consult Date/Type/Reason Admit Date/Time June 22, 2018 at 23:12 Initial Consult Date Date/Time of Note DATE: 06/26/18 TIME: 08:56 Subjective NO acute events - tolerated procedure well - con't pain Rx - comfortable. ROS: No fever, no chills, no nausea, no vomiting, no diarrhea/constipation No recent weight changes No chest pain, no PND, no orthopnea - mild chronic SOB No dizziness, blurred vision No thirst, no heat or cold intolerance Objective Vitals Vital Signs Date Temp Pulse Resp B/P (MAP) Pulse Ox O2 O2 Flow FiO2 Time Delivery Rate 06/26/18 98.0 57 18 123/62 95 07:11 (82) 06/25/18 Room Air 15:30 06/22/18 2.0 23:08 Intake and Output 06/25/18 06/25/18 06/26/18 1515:00 23:00 07:00 IntakeIntake Total 1200 ml 800 ml OutputOutput Total 900 ml 200 ml BalanceBalance 300 ml 800 ml -200 ml Exam General: WN/WD/NAD, AOx 3 HEENT: Unicetric/atraumatic/EOMI (follow commands) NECK: JVD elevated, no thyromegaly Lymph: no lymphadenopathy HEART: regular with no S3, II/ systolic murmur at apex LUNGS: Coarse sounds ABD: soft, NT, ND, +BS : Intact Neuro: non focal SKIN: chronic changes EXT: trace edema, post op Results/Medications Result Diagram: 06/26/18 0449 06/26/18 0449 Results 24 hrs Laboratory Tests Test 06/25/18 14:39 06/26/18 04:49 White Blood Count 6.0 4.4 #L Red Blood Count 2.91 L 2.97 L Hemoglobin 9.6 L 9.6 L Hematocrit 28.3 L 28.8 L Mean Corpuscular Volume 97.3 97.0 Mean Corpuscular Hemoglobin 33.0 32.3 Mean Corpuscular Hemoglobin Concent 33.9 33.3 Red Cell Distribution Width 14.6 H 14.9 H Platelet Count 203 206 Mean Platelet Volume 8.9 9.6 Immature Granulocytes % 0.300 0.200 Neutrophils % 76.3 66.1 Lymphocytes % 10.9 L 15.9 Monocytes % 10.7 14.4 H Eosinophils % 1.3 2.7 Basophils % 0.5 0.7 Nucleated Red Blood Cells % 0.0 0.0 Immature Granulocytes # 0.020 0.010 Neutrophils # 4.6 2.9 Lymphocytes # 0.7 L 0.7 L Monocytes # 0.6 0.6 Eosinophils # 0.1 0.1 Basophils # 0.0 0.0 Nucleated Red Blood Cells # 0.0 0.0 Sodium Level 132 L 133 L Potassium Level 3.5 3.7 Chloride Level 100 101 Carbon Dioxide Level 28 27 Anion Gap 4 L 5 Blood Urea Nitrogen 5 L 8 Creatinine 0.35 L 0.41 L Est Glomerular Filtrat Rate mL/min > 60 > 60 Glucose Level 183 87 # Calcium Level 7.5 L 7.9 L Home Meds Reported Medications Hydrocodone Bit/Acetaminophen (Vicodin HP 10-300) 1 Each Tablet, 1 TAB PO Q4H PRN for PAIN, TAB 06/23/18 Hydralazine Hcl* (Hydralazine Hcl*) 50 Mg Tab, 100 MG PO TID, #180 TAB 06/23/18 Methyldopa* (Methyldopa*) 500 Mg Tablet, 500 MG PO BID, TAB 06/23/18 Amlodipine Besylate* (Amlodipine Besylate*) 10 Mg Tablet, 10 MG PO DAILY, #30 TAB 06/23/18 Lisinopril* (Lisinopril*) 40 Mg Tablet, 40 MG PO DAILY, #30 TAB 06/23/18 Hydroxychloroquine Sulfate* (Plaquenil*) 200 Mg Tab, 200 MG PO BID, TAB 06/23/18 Carbamazepine* (Tegretol Xr*) 200 Mg Tab.sr.12h, 400 MG PO TID, TAB.SA 04/24/17 Medications Current Medications IV Flush (NS 3 ml) 3 ml PER PROTOCOL IV ; Start 06/23/18 at 00:00 Ondansetron HCl (Zofran Inj) 4 mg Q6H PRN IV NAUSEA/VOMITING; Start 06/23/18 at 00:00 Acetaminophen (Tylenol Tab) 650 mg Q6H PRN PO .PAIN 1-3 OR TEMP; Start 06/23/18 at 00:00 Acetaminophen/ Hydrocodone Bitart ([place] (5/325)) 1 tab Q6H PRN PO .MOD PAIN 4- 6; Start 06/23/18 at 00:00 Acetaminophen/ Hydrocodone Bitart ([place] (5/325)) 2 tab Q6H PRN PO .SEVERE PAIN 7-10 Last administered on 06/26/18 05:25; Admin Dose 2 TAB; Start 06/23/18 at 00:00 Albuterol/ Ipratropium (Duoneb) 3 ml Q2H RESP THERAPY PRN HHN SHORTNESS OF BREATH; Start 06/23/18 at 00:00 Carbamazepine (Tegretol Xr) 400 mg TID PO Last administered on 06/25/18 20:58; Admin Dose 400 MG; Start 06/23/18 at 09:00 Levetiracetam (Keppra) 1,000 mg BID PO Last administered on 06/25/18 20:58; Admin Dose 1,000 MG; Start 06/23/18 at 12:30 Hydralazine HCl (Apresoline) 100 mg Q8 PO Last administered on 06/26/18 05:23; Admin Dose 100 MG; Start 06/23/18 at 15:00 Amlodipine Besylate (Norvasc) 10 mg DAILY PO Last administered on 06/25/18 11:26; Admin Dose 10 MG; Start 06/24/18 at 09:00 Methyldopa (Aldomet) 500 mg BID PO Last administered on 06/25/18 20:58; Admin Dose 500 MG; Start 06/23/18 at 21:00 Lisinopril (Zestril) 40 mg HS PO Last administered on 06/25/18 20:57; Admin Dose 40 MG; Start 06/24/18 at 21:00 Carvedilol (Coreg) 6.25 mg BID GTB Last administered on 06/25/18 20:59; Admin Dose 6.25 MG; Start 06/24/18 at 21:00 Hydralazine HCl (Apresoline) 5 mg PACU ORDER PRN IV HIGH BLOOD PRESSURE Last administered on 06/25/18 10:13; Admin Dose 5 MG; Start 06/25/18 at 09:30 Oxycodone HCl (Roxicodone) 5 mg Q4H PRN PO .PAIN; Start 06/25/18 at 09:30 IV Flush (NS 3 ml) 3 ml per protocol IV ; Start 06/25/18 at 09:30 Enoxaparin Sodium (Lovenox) 40 mg DAILY SC ; Start 06/26/18 at 09:00 Loratadine (Claritin) 10 mg DAILY PRN PO NASAL CONGESTION; Start 06/25/18 at 17:00 Assessment/Plan Hospital Course (Demo Recall) 1. Valery-op: Negative stress test with EF 45% recently. Continue to monitor. We will see if she can tolerate a small dose of perioperative beta rudi.POST op now - tolerated well Doing well post op- pain Rx, ambulation as Ok per orthopedic MD. 2. Hypertension. Blood pressure is labile. We will see if beta rudi will help. Will add rx tomorrow if needed 3. Chronic obstructive pulmonary disease. The patient has history of chronic obstructive pulmonary disease. No active wheezing at the moment. We will initiate beta rudi. NO wheezing now. 4. Hypokalemia. Continue to replace potassium as indicated. Replaced. 5. Murmur - Last echo did not show any obstructive valve disease. She tolerated surgeries before. We will follow clinically. Stable by exam. TR likely. 6. History of tobacco use. Discontinue tobacco use advised. BEBE RUSH MD June 26, 2018 08:58
[2018-06-26] MEDS: oxyCODONE 5 MG TAB PO PRN (09:14)
[2018-06-26] MEDS: AMLODIPINE 10 MG TAB PO SCH (09:15)
[2018-06-26] MEDS: carBAMAZepine (XR) 200 MG TABSR PO SCH ×3 (09:16→21:29)
[2018-06-26] MEDS: METHYLDOPA 250 MG TAB PO SCH ×2 (09:16→21:30)
[2018-06-26] MEDS: LEVETIRACETAM 500 MG TAB PO SCH ×2 (09:17→21:30)
[2018-06-26] MEDS: ENOXAPARIN 40 MG/0.4 ML SYG SC SCH (09:18)
[2018-06-26 13:36] VITALS: BP 104/55; PULSE 66; RESP 18
[2018-06-26] MEDS: LORATADINE 10 MG TAB PO PRN (13:38)
--- NOTE | 2018-06-26 15:08 | PN ---
Date/Time of Note Date/Time of Note DATE: 06/26/18 TIME: 15:00 Assessment/Plan VTE Prophylaxis Risk score (from Nsg)>0 risk: 5 SCD applied (from Nsg): Yes Pharmacological prophylaxis: LMWH Lines/Catheters IV Catheter Type (from Nrsg): Saline Lock Urinary Cath still in place: No Assessment/Plan Hospital Course Pt is awake, alert, participate in PT, needs reinforcement of instruction. [place] PT , pain management. Assessment/Plan -Traumatic dislocation of the left hip. S/p closed manipulative reduction of the left hip under general anesthesia by Dr Scruggs, orthopedic surgery on 06/25/2018. Continue PT. -Hx of hemiarthroplasty of the left hip. -Hypertension, continue Coreg and benazepril. Dr. Cartagena is following in cardiology consultation. -Seizure disorder. Continue Keppra and Tegretol. -Tobacco dependence Further recommendations based on clinical course. Plan of care discussed with Dr. Cummings. Result Diagram: 06/26/18 0449 06/26/18 0449 Results 24hrs Laboratory Tests Test 06/26/18 04:49 White Blood Count 4.4 #L Red Blood Count 2.97 L Hemoglobin 9.6 L Hematocrit 28.8 L Mean Corpuscular Volume 97.0 Mean Corpuscular Hemoglobin 32.3 Mean Corpuscular Hemoglobin Concent 33.3 Red Cell Distribution Width 14.9 H Platelet Count 206 Mean Platelet Volume 9.6 Immature Granulocytes % 0.200 Neutrophils % 66.1 Lymphocytes % 15.9 Monocytes % 14.4 H Eosinophils % 2.7 Basophils % 0.7 Nucleated Red Blood Cells % 0.0 Immature Granulocytes # 0.010 Neutrophils # 2.9 Lymphocytes # 0.7 L Monocytes # 0.6 Eosinophils # 0.1 Basophils # 0.0 Nucleated Red Blood Cells # 0.0 Sodium Level 133 L Potassium Level 3.7 Chloride Level 101 Carbon Dioxide Level 27 Anion Gap 5 Blood Urea Nitrogen 8 Creatinine 0.41 L Est Glomerular Filtrat Rate mL/min > 60 Glucose Level 87 # Calcium Level 7.9 L Exam/Review of Systems Exam Vitals Vital Signs Date Temp Pulse Resp B/P (MAP) Pulse Ox O2 O2 Flow FiO2 Time Delivery Rate 06/26/18 66 18 104/55 13:36 (71) 06/26/18 98.0 95 07:11 06/25/18 Room Air 15:30 06/22/18 2.0 23:08 Intake and Output 06/25/18 06/25/18 06/26/18 1515:00 23:00 07:00 IntakeIntake Total 1200 ml 800 ml OutputOutput Total 900 ml 200 ml BalanceBalance 300 ml 800 ml -200 ml Constitutional: alert, oriented Respiratory: clear to auscultation Cardiovascular: nl pulses Gastrointestinal: soft, non-tender Extremities: normal pulses Neurological: nl mental status Skin: nl turgor Results Results 24hrs Laboratory Tests Test 06/26/18 04:49 White Blood Count 4.4 #L Red Blood Count 2.97 L Hemoglobin 9.6 L Hematocrit 28.8 L Mean Corpuscular Volume 97.0 Mean Corpuscular Hemoglobin 32.3 Mean Corpuscular Hemoglobin Concent 33.3 Red Cell Distribution Width 14.9 H Platelet Count 206 Mean Platelet Volume 9.6 Immature Granulocytes % 0.200 Neutrophils % 66.1 Lymphocytes % 15.9 Monocytes % 14.4 H Eosinophils % 2.7 Basophils % 0.7 Nucleated Red Blood Cells % 0.0 Immature Granulocytes # 0.010 Neutrophils # 2.9 Lymphocytes # 0.7 L Monocytes # 0.6 Eosinophils # 0.1 Basophils # 0.0 Nucleated Red Blood Cells # 0.0 Sodium Level 133 L Potassium Level 3.7 Chloride Level 101 Carbon Dioxide Level 27 Anion Gap 5 Blood Urea Nitrogen 8 Creatinine 0.41 L Est Glomerular Filtrat Rate mL/min > 60 Glucose Level 87 # Calcium Level 7.9 L Medications Medication Current Medications IV Flush (NS 3 ml) 3 ml PER PROTOCOL IV ; Start 06/23/18 at 00:00 Ondansetron HCl (Zofran Inj) 4 mg Q6H PRN IV NAUSEA/VOMITING; Start 06/23/18 at 00:00 Acetaminophen (Tylenol Tab) 650 mg Q6H PRN PO .PAIN 1-3 OR TEMP; Start 06/23/18 at 00:00 Acetaminophen/ Hydrocodone Bitart ([place] (5/325)) 1 tab Q6H PRN PO .MOD PAIN 4- 6; Start 06/23/18 at 00:00 Acetaminophen/ Hydrocodone Bitart ([place] (5/325)) 2 tab Q6H PRN PO .SEVERE PAIN 7-10 Last administered on 06/26/18at 13:33; Admin Dose 2 TAB; Start 06/23/18 at 0 0:00 Albuterol/ Ipratropium (Duoneb) 3 ml Q2H RESP THERAPY PRN HHN SHORTNESS OF BREATH; Start 06/23/18 at 00:00 Carbamazepine (Tegretol Xr) 400 mg TID PO Last administered on 06/26/18 13:33; Admin Dose 400 MG; Start 06/23/18 at 09:00 Levetiracetam (Keppra) 1,000 mg BID PO Last administered on 06/26/18 09:17; Admin Dose 1,000 MG; Start 06/23/18 at 12:30 Hydralazine HCl (Apresoline) 100 mg Q8 PO Last administered on 06/26/18 13:34; Admin Dose 100 MG; Start 06/23/18 at 15:00 Amlodipine Besylate (Norvasc) 10 mg DAILY PO Last administered on 06/26/18 09:15; Admin Dose 10 MG; Start 06/24/18 at 09:00 Methyldopa (Aldomet) 500 mg BID PO Last administered on 06/26/18 09:16; Admin Dose 500 MG; Start 06/23/18 at 21:00 Lisinopril (Zestril) 40 mg HS PO Last administered on 06/25/18 20:57; Admin Dose 40 MG; Start 06/24/18 at 21:00 Carvedilol (Coreg) 6.25 mg BID GTB Last administered on 06/26/18 09:16; Admin Dose 6.25 MG; Start 06/24/18 at 21:00 Hydralazine HCl (Apresoline) 5 mg PACU ORDER PRN IV HIGH BLOOD PRESSURE Last administered on 06/25/18 10:13; Admin Dose 5 MG; Start 06/25/18 at 09:30 Oxycodone HCl (Roxicodone) 5 mg Q4H PRN PO .PAIN Last administered on 06/26/18 09:14; Admin Dose 5 MG; Start 06/25/18 at 09:30 IV Flush (NS 3 ml) 3 ml per protocol IV ; Start 06/25/18 at 09:30 Enoxaparin Sodium (Lovenox) 40 mg DAILY SC Last administered on 06/26/18 09:18; Admin Dose 40 MG; Start 06/26/18 at 09:00 Loratadine (Claritin) 10 mg DAILY PRN PO NASAL CONGESTION Last administered on 06/26/18at 13:38; Admin Dose 10 MG; Start 06/25/18 at 17:00 MARYANA ALONSO June 26, 2018 15:08
[2018-06-26 20:10] VITALS: BP 129/63; PULSE 70; RESP 18
[2018-06-26] MEDS: LISINOPRIL 20 MG TAB PO SCH (21:30)
[2018-06-27] VITALS (8 sets, daily range): BP systolic 107–177; BP diastolic 56–81; PULSE 66–69; RESP 18–19
[2018-06-27] MEDS: LEVETIRACETAM 500 MG TAB PO SCH ×2 (08:03→20:22)
[2018-06-27] MEDS: METHYLDOPA 250 MG TAB PO SCH ×2 (08:04→20:24)
[2018-06-27] MEDS: carBAMAZepine (XR) 200 MG TABSR PO SCH ×3 (08:05→20:22)
[2018-06-27] MEDS: LORATADINE 10 MG TAB PO PRN (08:05)
[2018-06-27] MEDS: AMLODIPINE 10 MG TAB PO SCH (08:05)
[2018-06-27] MEDS: HYDROCODONE/APAP (5/325) TAB PO PRN ×3 (08:06→20:23)
[2018-06-27] MEDS: ENOXAPARIN 40 MG/0.4 ML SYG SC SCH (08:07)
--- NOTE | 2018-06-27 11:38 | CONS ---
Consult Date/Type/Reason Admit Date/Time June 22, 2018 at 23:12 Initial Consult Date Date/Time of Note DATE: 06/27/18 TIME: 11:36 Subjective NO acute events - pt comfortable -asking to increase pain meds - will defer to PMD. NO CP Now - will monitor clinically. ROS: No fever, no chills, no nausea, no vomiting, no diarrhea/constipation + back pain Objective Vitals Vital Signs Date Temp Pulse Resp B/P (MAP) Pulse Ox O2 O2 Flow FiO2 Time Delivery Rate 06/27/18 18 107/57 94 09:41 (74) 06/27/18 98.1 66 09:41 06/25/18 Room Air 15:30 Intake and Output 06/26/18 06/26/18 06/27/18 1515:00 23:00 07:00 IntakeIntake Total 200 ml 100 ml 100 ml BalanceBalance 200 ml 100 ml 100 ml Exam General: WN/WD/NAD, AOx 3 HEENT: Unicetric/atraumatic/EOMI (follow commands) NECK: JVD elevated, no thyromegaly Lymph: no lymphadenopathy HEART: regular with no S3, II/ systolic murmur at apex LUNGS: Coarse sounds ABD: soft, NT, ND, +BS : Intact Neuro: non focal SKIN: chronic changes EXT: trace edema, post op Results/Medications Result Diagram: 06/27/186 06/27/186 Results 24 hrs Laboratory Tests Test 06/27/18 04:36 White Blood Count 4.6 L Red Blood Count 3.03 L Hemoglobin 10.1 L Hematocrit 29.6 L Mean Corpuscular Volume 97.7 Mean Corpuscular Hemoglobin 33.3 H Mean Corpuscular Hemoglobin Concent 34.1 Red Cell Distribution Width 14.7 H Platelet Count 214 Mean Platelet Volume 9.5 Immature Granulocytes % 0.400 Neutrophils % 65.5 Lymphocytes % 14.7 L Monocytes % 15.3 H Eosinophils % 3.0 Basophils % 1.1 Nucleated Red Blood Cells % 0.0 Immature Granulocytes # 0.020 Neutrophils # 3.0 Lymphocytes # 0.7 L Monocytes # 0.7 Eosinophils # 0.1 Basophils # 0.1 Nucleated Red Blood Cells # 0.0 Sodium Level 134 L Potassium Level 3.9 Chloride Level 102 Carbon Dioxide Level 28 Anion Gap 4 L Blood Urea Nitrogen 15 Creatinine 0.46 Est Glomerular Filtrat Rate mL/min > 60 Glucose Level 94 Calcium Level 8.0 L Home Meds Reported Medications Hydrocodone Bit/Acetaminophen (Vicodin HP 10-300) 1 Each Tablet, 1 TAB PO Q4H PRN for PAIN, TAB 06/23/18 Hydralazine Hcl* (Hydralazine Hcl*) 50 Mg Tab, 100 MG PO TID, #180 TAB 06/23/18 Methyldopa* (Methyldopa*) 500 Mg Tablet, 500 MG PO BID, TAB 06/23/18 Amlodipine Besylate* (Amlodipine Besylate*) 10 Mg Tablet, 10 MG PO DAILY, #30 TAB 06/23/18 Lisinopril* (Lisinopril*) 40 Mg Tablet, 40 MG PO DAILY, #30 TAB 06/23/18 Hydroxychloroquine Sulfate* (Plaquenil*) 200 Mg Tab, 200 MG PO BID, TAB 06/23/18 Carbamazepine* (Tegretol Xr*) 200 Mg Tab.sr.12h, 400 MG PO TID, TAB.SA 04/24/17 Medications Current Medications IV Flush (NS 3 ml) 3 ml PER PROTOCOL IV ; Start 06/23/18 at 00:00 Ondansetron HCl (Zofran Inj) 4 mg Q6H PRN IV NAUSEA/VOMITING; Start 06/23/18 at 00:00 Acetaminophen (Tylenol Tab) 650 mg Q6H PRN PO .PAIN 1-3 OR TEMP; Start 06/23/18 at 00:00 Acetaminophen/ Hydrocodone Bitart ([place] (5/325)) 1 tab Q6H PRN PO .MOD PAIN 4- 6 Last administered on 06/27/18at 08:06; Admin Dose 1 TAB; Start 06/23/18 at 00:00 Acetaminophen/ Hydrocodone Bitart ([place] (5/325)) 2 tab Q6H PRN PO .SEVERE PAIN 7-10 Last administered on 06/26/18at 13:33; Admin Dose 2 TAB; Start 06/23/18 at 00:00 Albuterol/ Ipratropium (Duoneb) 3 ml Q2H RESP THERAPY PRN HHN SHORTNESS OF BREATH; Start 06/23/18 at 00:00 Carbamazepine (Tegretol Xr) 400 mg TID PO Last administered on 5/14/19at 08:05; Admin Dose 400 MG; Start 06/23/18 at 09:00 Levetiracetam (Keppra) 1,000 mg BID PO Last administered on 06/27/18 08:03; Admin Dose 1,000 MG; Start 06/23/18 at 12:30 Hydralazine HCl (Apresoline) 100 mg Q8 PO Last administered on 06/27/18 05:36; Admin Dose 100 MG; Start 06/23/18 at 15:00 Amlodipine Besylate (Norvasc) 10 mg DAILY PO Last administered on 06/27/18 08:05; Admin Dose 10 MG; Start 06/24/18 at 09:00 Methyldopa (Aldomet) 500 mg BID PO Last administered on 06/27/18 08:04; Admin Dose 500 MG; Start 06/23/18 at 21:00 Lisinopril (Zestril) 40 mg HS PO Last administered on 06/26/18 21:30; Admin Dose 40 MG; Start 06/24/18 at 21:00 Carvedilol (Coreg) 6.25 mg BID GTB Last administered on 06/27/18 08:05; Admin Dose 6.25 MG; Start 06/24/18 at 21:00 Hydralazine HCl (Apresoline) 5 mg PACU ORDER PRN IV HIGH BLOOD PRESSURE Last administered on 06/25/18 10:13; Admin Dose 5 MG; Start 06/25/18 at 09:30 Oxycodone HCl (Roxicodone) 5 mg Q4H PRN PO .PAIN Last administered on 06/26/18 09:14; Admin Dose 5 MG; Start 06/25/18 at 09:30 IV Flush (NS 3 ml) 3 ml per protocol IV ; Start 06/25/18 at 09:30 Enoxaparin Sodium (Lovenox) 40 mg DAILY SC Last administered on 06/27/18 08:07; Admin Dose 40 MG; Start 06/26/18 at 09:00 Loratadine (Claritin) 10 mg DAILY PRN PO NASAL CONGESTION Last administered on 06/27/18 08:05; Admin Dose 10 MG; Start 06/25/18 at 17:00 Assessment/Plan Hospital Course (Demo Recall) 1. Valery-op: Negative stress test with EF 45% recently. Continue to monitor. We will see if she can tolerate a small dose of perioperative beta rudi.POST op now - tolerated well Doing well post op- pain Rx, ambulation as Ok per ortho pedic . Defer pain meds Rx to PMD. 2. Hypertension. Blood pressure is labile. We will see if beta rudi will help. Will add rx tomorrow if needed TREATED. 3. Chronic obstructive pulmonary disease. The patient has history of chronic obstructive pulmonary disease. No active wheezing at the moment. We will initiate beta rudi. NO wheezing now. 4. Hypokalemia. Continue to replace potassium as indicated. Replaced. 5. Murmur - Last echo did not show any obstructive valve disease. She tolerated surgeries before. We will follow clinically. Stable by exam. TR likely. Euvolemic by exam. 6. History of tobacco use. Discontinue tobacco use advised. BEBE RUSH MD June 27, 2018 11:38
[2018-06-27] MEDS ORDERED: AMLODIPINE 10 MG TAB PO SCH (14:00)
--- NOTE | 2018-06-27 14:34 | PN ---
Date/Time of Note Date/Time of Note DATE: 06/27/18 TIME: 14:30 Assessment/Plan VTE Prophylaxis Risk score (from Ns)>0 risk: 5 SCD applied (from Ns): Yes Pharmacological prophylaxis: LMWH Lines/Catheters IV Catheter Type (from Nrsg): Saline Lock Urinary Cath still in place: No Assessment/Plan Hospital Course Pt with elevated BP early in the morning, will add Norvasc and hydralazine to the blood pressure regimen, continue to monitor. Continue current pain management, continue physical therapy. Assessment/Plan -Traumatic dislocation of the left hip. S/p closed manipulative reduction of the left hip under general anesthesia by Dr Scruggs, orthopedic surgery on 06/25/2018. Continue PT. -Hx of hemiarthroplasty of the left hip. -Hypertension, continue Coreg, benazepril, Norvasc, and hydralazine. Dr. Cartagena is following in cardiology consultation. -Seizure disorder. Continue Keppra and Tegretol. -RA, continue Plaquenil. -Tobacco dependence Further recommendations based on clinical course. Plan of care discussed with Dr. Cummings. Result Diagram: 06/27/18 0436 06/27/18 0436 Results 24hrs Laboratory Tests Test 06/27/18 04:36 White Blood Count 4.6 L Red Blood Count 3.03 L Hemoglobin 10.1 L Hematocrit 29.6 L Mean Corpuscular Volume 97.7 Mean Corpuscular Hemoglobin 33.3 H Mean Corpuscular Hemoglobin Concent 34.1 Red Cell Distribution Width 14.7 H Platelet Count 214 Mean Platelet Volume 9.5 Immature Granulocytes % 0.400 Neutrophils % 65.5 Lymphocytes % 14.7 L Monocytes % 15.3 H Eosinophils % 3.0 Basophils % 1.1 Nucleated Red Blood Cells % 0.0 Immature Granulocytes # 0.020 Neutrophils # 3.0 Lymphocytes # 0.7 L Monocytes # 0.7 Eosinophils # 0.1 Basophils # 0.1 Nucleated Red Blood Cells # 0.0 Sodium Level 134 L Potassium Level 3.9 Chloride Level 102 Carbon Dioxide Level 28 Anion Gap 4 L Blood Urea Nitrogen 15 Creatinine 0.46 Est Glomerular Filtrat Rate mL/min > 60 Glucose Level 94 Calcium Level 8.0 L Exam/Review of Systems Exam Vitals Vital Signs Date Temp Pulse Resp B/P (MAP) Pulse Ox O2 O2 Flow FiO2 Time Delivery Rate 06/27/18 98.1 67 18 139/65 95 13:40 (89) 06/25/18 Room Air 15:30 Intake and Output 06/26/18 06/26/18 06/27/18 1515:00 23:00 07:00 IntakeIntake Total 200 ml 100 ml 100 ml BalanceBalance 200 ml 100 ml 100 ml Exam Constitutional: alert, oriented Respiratory: clear to auscultation Cardiovascular: nl pulses Gastrointestinal: soft, non-tender Extremities: normal pulses Neurological: nl mental status Skin: nl turgor Results Results 24hrs Laboratory Tests Test 06/27/18 04:36 White Blood Count 4.6 L Red Blood Count 3.03 L Hemoglobin 10.1 L Hematocrit 29.6 L Mean Corpuscular Volume 97.7 Mean Corpuscular Hemoglobin 33.3 H Mean Corpuscular Hemoglobin Concent 34.1 Red Cell Distribution Width 14.7 H Platelet Count 214 Mean Platelet Volume 9.5 Immature Granulocytes % 0.400 Neutrophils % 65.5 Lymphocytes % 14.7 L Monocytes % 15.3 H Eosinophils % 3.0 Basophils % 1.1 Nucleated Red Blood Cells % 0.0 Immature Granulocytes # 0.020 Neutrophils # 3.0 Lymphocytes # 0.7 L Monocytes # 0.7 Eosinophils # 0.1 Basophils # 0.1 Nucleated Red Blood Cells # 0.0 Sodium Level 134 L Potassium Level 3.9 Chloride Level 102 Carbon Dioxide Level 28 Anion Gap 4 L Blood Urea Nitrogen 15 Creatinine 0.46 Est Glomerular Filtrat Rate mL/min > 60 Glucose Level 94 Calcium Level 8.0 L Medications Medication Current Medications IV Flush (NS 3 ml) 3 ml PER PROTOCOL IV ; Start 06/23/18 at 00:00 Ondansetron HCl (Zofran Inj) 4 mg Q6H PRN IV NAUSEA/VOMITING; Start 06/23/18 at 00:00 Acetaminophen (Tylenol Tab) 650 mg Q6H PRN PO .PAIN 1-3 OR TEMP; Start 06/23/18 at 00:00 Acetaminophen/ Hydrocodone Bitart ([place] (5/325)) 1 tab Q6H PRN PO .MOD PAIN 4- 6 Last administered on 06/27/18at 14:16; Admin Dose 1 TAB; Start 06/23/18 at 00:00 Acetaminophen/ Hydrocodone Bitart ([place] (5/325)) 2 tab Q6H PRN PO .SEVERE PAIN 7-10 Last administered on 06/26/18 13:33; Admin Dose 2 TAB; Start 06/23/18 at 00:00 Albuterol/ Ipratropium (Duoneb) 3 ml Q2H RESP THERAPY PRN HHN SHORTNESS OF BREATH; Start 06/23/18 at 00:00 Carbamazepine (Tegretol Xr) 400 mg TID PO Last administered on 06/27/18 14:16; Admin Dose 400 MG; Start 06/23/18 at 09:00 Levetiracetam (Keppra) 1,000 mg BID PO Last administered on 06/27/18 08:03; Admin Dose 1,000 MG; Start 06/23/18 at 12:30 Hydralazine HCl (Apresoline) 100 mg Q8 PO Last administered on 06/27/18 14:15; Admin Dose 100 MG; Start 06/23/18 at 15:00 Amlodipine Besylate (Norvasc) 10 mg DAILY PO Last administered on 06/27/18 08:05; Admin Dose 10 MG; Start 06/24/18 at 09:00 Methyldopa (Aldomet) 500 mg BID PO Last administered on 06/27/18 08:04; Admin Dose 500 MG; Start 06/23/18 at 21:00 Lisinopril (Zestril) 40 mg HS PO Last administered on 06/26/18 21:30; Admin Dose 40 MG; Start 06/24/18 at 21:00 Carvedilol (Coreg) 6.25 mg BID GTB Last administered on 06/27/18 08:05; Admin Dose 6.25 MG; Start 06/24/18 at 21:00 Hydralazine HCl (Apresoline) 5 mg PACU ORDER PRN IV HIGH BLOOD PRESSURE Last administered on 06/25/18 10:13; Admin Dose 5 MG; Start 06/25/18 at 09:30 Oxycodone HCl (Roxicodone) 5 mg Q4H PRN PO .PAIN Last administered on 06/26/18 09:14; Admin Dose 5 MG; Start 06/25/18 at 09:30 IV Flush (NS 3 ml) 3 ml per protocol IV ; Start 06/25/18 at 09:30 Enoxaparin Sodium (Lovenox) 40 mg DAILY SC Last administered on 06/27/18at 08:07; Admin Dose 40 MG; Start 06/26/18 at 09:00 Loratadine (Claritin) 10 mg DAILY PRN PO NASAL CONGESTION Last administered on 06/27/18at 08:05; Admin Dose 10 MG; Start 06/25/18 at 17:00 Hydralazine HCl (Apresoline) 100 mg TID PO ; Start 06/27/18 at 13:40 Hydroxychloroquine Sulfate (Plaquenil) 200 mg BID PO ; Start 06/27/18 at 21:00 Lisinopril (Zestril) 40 mg QHS PO ; Start 06/27/18 at 21:00 Methyldopa (Aldomet) 500 mg BID PO ; Start 06/27/18 at 21:00 MARYANA ALONSO June 27, 2018 14:34
[2018-06-27] MEDS: LISINOPRIL 20 MG TAB PO SCH (20:24)
[2018-06-27] MEDS ORDERED: METHYLDOPA 500 MG TAB PO SCH (21:00)
[2018-06-27] MEDS: HYDROXYCHLOROQUINE 200 MG TAB PO SCH (21:34)
[2018-06-28 02:15] VITALS: BP 166/79; PULSE 68; RESP 18
[2018-06-28] MEDS: oxyCODONE 5 MG TAB PO PRN ×2 (06:35→12:12)
[2018-06-28 08:30] VITALS: BP 116/76; PULSE 62; RESP 18
[2018-06-28] MEDS: carBAMAZepine (XR) 200 MG TABSR PO SCH ×3 (08:41→20:28)
[2018-06-28] MEDS: LEVETIRACETAM 500 MG TAB PO SCH ×2 (08:42→20:32)
[2018-06-28] MEDS: METHYLDOPA 250 MG TAB PO SCH ×3 (08:42→20:29)
[2018-06-28] MEDS: AMLODIPINE 10 MG TAB PO SCH (08:43)
[2018-06-28] MEDS: HYDROXYCHLOROQUINE 200 MG TAB PO SCH ×2 (08:43→20:34)
[2018-06-28] MEDS: ENOXAPARIN 40 MG/0.4 ML SYG SC SCH (08:47)
[2018-06-28] MEDS: HYDROCODONE/APAP (5/325) TAB PO PRN ×2 (08:48→20:35)
[2018-06-28 10:42] VITALS: BP 107/55
[2018-06-28 13:20] VITALS: BP 130/62; PULSE 64; RESP 18
--- NOTE | 2018-06-28 15:15 | PN ---
Date/Time of Note Date/Time of Note DATE: 06/28/18 TIME: 15:14 Assessment/Plan VTE Prophylaxis Risk score (from Ns)>0 risk: 8 SCD applied (from Ns): Yes Pharmacological prophylaxis: LMWH Lines/Catheters IV Catheter Type (from Nrsg): Saline Lock Urinary Cath still in place: No Assessment/Plan Hospital Course Pt continues to demonstrate impulsivity with mobility tasks and noncompliant with use of hip spica brace, use of abduction pillow, and hip precautions. Case management for SNF placement per PT recommendations. Patient remains hemodynamically stable, blood pressure is better controlled. Assessment/Plan -Traumatic dislocation of the left hip. S/p closed manipulative reduction of the left hip under general anesthesia by Dr Scruggs, orthopedic surgery on 06/25/2018. Continue PT. -Hx of hemiarthroplasty of the left hip. -Hypertension, continue Coreg, benazepril, Norvasc, and hydralazine. Dr. Cartagena is following in cardiology consultation. -Seizure disorder. Continue Keppra and Tegretol. -RA, continue Plaquenil. -Tobacco dependence Further recommendations based on clinical course. Plan of care discussed with Dr. Cummings. Result Diagram: 06/27/18 0436 06/27/18 0436 Exam/Review of Systems Exam Vitals Vital Signs Date Temp Pulse Resp B/P (MAP) Pulse Ox O2 O2 Flow FiO2 Time Delivery Rate 06/28/18 98.1 64 18 130/62 96 13:20 (84) 06/25/18 Room Air 15:30 Intake and Output 06/27/18 06/27/18 06/28/18 1515:00 23:00 07:00 IntakeIntake Total 600 ml 200 ml 120 ml OutputOutput Total 450 ml BalanceBalance 150 ml 200 ml 120 ml Exam Constitutional: alert, oriented Respiratory: clear to auscultation Cardiovascular: nl pulses Gastrointestinal: soft, non-tender Extremities: normal pulses Neurological: nl mental status Skin: nl turgor Medications Medication Current Medications IV Flush (NS 3 ml) 3 ml PER PROTOCOL IV ; Start 06/23/18 at 00:00 Ondansetron HCl (Zofran Inj) 4 mg Q6H PRN IV NAUSEA/VOMITING; Start 06/23/18 at 00:00 Acetaminophen (Tylenol Tab) 650 mg Q6H PRN PO .PAIN 1-3 OR TEMP; Start 06/23/18 at 00:00 Acetaminophen/ Hydrocodone Bitart ([place] (5/325)) 1 tab Q6H PRN PO .MOD PAIN 4- 6 Last administered on 06/27/18 14:16; Admin Dose 1 TAB; Start 06/23/18 at 00:00 Acetaminophen/ Hydrocodone Bitart ([place] (5/325)) 2 tab Q6H PRN PO .SEVERE PAIN 7-10 Last administered on 06/28/18 08:48; Admin Dose 2 TAB; Start 06/23/18 at 00:00 Albuterol/ Ipratropium (Duoneb) 3 ml Q2H RESP THERAPY PRN HHN SHORTNESS OF BREATH; Start 06/23/18 at 00:00 Carbamazepine (Tegretol Xr) 400 mg TID PO Last administered on 06/28/18 14:18; Admin Dose 400 MG; Start 06/23/18 at 09:00 Levetiracetam (Keppra) 1,000 mg BID PO Last administered on 06/28/18 08:42; Admin Dose 1,000 MG; Start 06/23/18 at 12:30 Amlodipine Besylate (Norvasc) 10 mg DAILY PO Last administered on 06/28/18 08:43; Admin Dose 10 MG; Start 06/24/18 at 09:00 Methyldopa (Aldomet) 500 mg BID PO Last administered on 06/28/18 08:42; Admin Dose 500 MG; Start 06/23/18 at 21:00 Carvedilol (Coreg) 6.25 mg BID GTB Last administered on 06/28/18 08:42; Admin Dose 6.25 MG; Start 06/24/18 at 21:00 Oxycodone HCl (Roxicodone) 5 mg Q4H PRN PO .PAIN Last administered on 06/28/18 12:12; Admin Dose 5 MG; Start 06/25/18 at 09:30 IV Flush (NS 3 ml) 3 ml per protocol IV ; Start 06/25/18 at 09:30 Enoxaparin Sodium (Lovenox) 40 mg DAILY SC Last administered on 06/28/18 08:47; Admin Dose 40 MG; Start 06/26/18 at 09:00 Loratadine (Claritin) 10 mg DAILY PRN PO NASAL CONGESTION Last administered on 06/27/18 08:05; Admin Dose 10 MG; Start 06/25/18 at 17:00 Hydralazine HCl (Apresoline) 100 mg TID PO Last administered on 06/28/18at 14:18; Admin Dose 100 MG; Start 06/27/18 at 13:40 Hydroxychloroquine Sulfate (Plaquenil) 200 mg BID PO Last administered on 06/28/18at 08:43; Admin Dose 200 MG; Start 06/27/18 at 21:00 Lisinopril (Zestril) 40 mg QHS PO Last administered on 06/27/18at 20:24; Admin Dose 40 MG; Start 06/27/18 at 21:00 Calcium/Vitamin D ([place]/ Vit-D (500/200)) 1 tab BID PO ; Start 06/28/18 at 21:00 MARYANA ALONSO June 28, 2018 15:15
[2018-06-28 15:42] VITALS: BP 128/64; PULSE 66; RESP 18
--- NOTE | 2018-06-28 16:07 | CONS ---
Assessment/Plan Assessment/Plan Hospital Course (Demo Recall) IMP: 1.Preop- now postop s/p closed reduction of LE fracture 2.HTNB 3.cad 4.seizure d/o 5.Hip fx Recc: -On med-surg -Continue hydralazine/lisinopril/coreg/norvasc/methyldopa and follow BP clsoely -Continue keppra/carbamazapine -Pain control Consultation Date/Type/Reason Admit Date/Time June 22, 2018 at 23:12 Initial Consult Date 06/23/18 Type of Consult Cardiology Reason for Consultation Preop Requesting Provider: ROXANNE BULLARD MD Date/Time of Note DATE: 06/28/18 TIME: 16:03 Exam/Review of Systems Vital Signs Vitals Vital Signs Date Temp Pulse Resp B/P (MAP) Pulse Ox O2 O2 Flow FiO2 Time Delivery Rate 06/28/18 97.9 66 18 128/64 98 Room Air 15:42 (85) Intake and Output 06/27/18 06/27/18 06/28/18 1515:00 23:00 07:00 IntakeIntake Total 600 ml 200 ml 120 ml OutputOutput Total 450 ml BalanceBalance 150 ml 200 ml 120 ml Exam Exam Review of Systems: CONSTITUTIONAL: No fevers, chills. PULMONARY: No sob CARDIOVASCULAR: No chest pain/palpitations GASTROINTESTINAL: No nausea/vomiting. GENITOURINARY: No hematuria/dysuria. MUSCULOSKELETAL: No myagias/arthalgias. PSYCHIATRIC: The patient denies depression. NEUROLOGIC: No weakness Constitutional: alert, oriented Psych: no complaints Head: normocephalic ENMT: mucosa pink and moist Neck: supple, jvd (9 cm water) Respiratory: clear to auscultation Cardiovascular: regular rate and rhythm Gastrointestinal: soft, non-tender Musculoskeletal: muscle weakness (mild generalized) Extremities: edema (none) Neurological: other (No focal deficits) Labs Result Diagram: 06/27/18 0436 06/27/18 043 Medications Medications Current Medications IV Flush (NS 3 ml) 3 ml PER PROTOCOL IV ; Start 06/23/18 at 00:00 Ondansetron HCl (Zofran Inj) 4 mg Q6H PRN IV NAUSEA/VOMITING; Start 06/23/18 at 00:00 Acetaminophen (Tylenol Tab) 650 mg Q6H PRN PO .PAIN 1-3 OR TEMP; Start 06/23/18 at 00:00 Acetaminophen/ Hydrocodone Bitart ([place] (5/325)) 1 tab Q6H PRN PO .MOD PAIN 4- 6 Last administered on 06/27/18 14:16; Admin Dose 1 TAB; Start 06/23/18 at 00:00 Acetaminophen/ Hydrocodone Bitart ([place] (5/325)) 2 tab Q6H PRN PO .SEVERE PAIN 7-10 Last administered on 06/28/18 08:48; Admin Dose 2 TAB; Start 06/23/18 at 00:00 Albuterol/ Ipratropium (Duoneb) 3 ml Q2H RESP THERAPY PRN HHN SHORTNESS OF BREATH; Start 06/23/18 at 00:00 Carbamazepine (Tegretol Xr) 400 mg TID PO Last administered on 06/28/18 14:18; Admin Dose 400 MG; Start 06/23/18 at 09:00 Levetiracetam (Keppra) 1,000 mg BID PO Last administered on 06/28/18 08:42; Admin Dose 1,000 MG; Start 06/23/18 at 12:30 Amlodipine Besylate (Norvasc) 10 mg DAILY PO Last administered on 06/28/18 08:43; Admin Dose 10 MG; Start 06/24/18 at 09:00 Carvedilol (Coreg) 6.25 mg BID GTB Last administered on 06/28/18 08:42; Admin Dose 6.25 MG; Start 06/24/18 at 21:00 Oxycodone HCl (Roxicodone) 5 mg Q4H PRN PO .PAIN Last administered on 06/28/18 12:12; Admin Dose 5 MG; Start 06/25/18 at 09:30 IV Flush (NS 3 ml) 3 ml per protocol IV ; Start 06/25/18 at 09:30 Enoxaparin Sodium (Lovenox) 40 mg DAILY SC Last administered on 06/28/18 08:47; Admin Dose 40 MG; Start 06/26/18 at 09:00 Loratadine (Claritin) 10 mg DAILY PRN PO NASAL CONGESTION Last administered on 06/27/18 08:05; Admin Dose 10 MG; Start 06/25/18 at 17:00 Hydralazine HCl (Apresoline) 100 mg TID PO Last administered on 06/28/18at 14:18; Admin Dose 100 MG; Start 06/27/18 at 13:40 Hydroxychloroquine Sulfate (Plaquenil) 200 mg BID PO Last administered on 06/28/18at 08:43; Admin Dose 200 MG; Start 06/27/18 at 21:00 Lisinopril (Zestril) 40 mg QHS PO Last administered on 06/27/18at 20:24; Admin Dose 40 MG; Start 06/27/18 at 21:00 Calcium/Vitamin D ([place]yster [place]/ Vit-D (500/200)) 1 tab BID PO ; Start 06/28/18 at 21:00 Methyldopa (Aldomet) 500 mg TID PO Last administered on 06/28/18at 15:58; Admin Dose 500 MG; Start 06/28/18 at 15:30 DAKOTAH CARRANZA June 28, 2018 16:07
[2018-06-28] MEDS: IBUPROFEN 800 MG TAB PO PRN (18:10)
[2018-06-28 20:15] VITALS: BP 149/77; PULSE 69; RESP 18
[2018-06-28] MEDS: CALCIUM/VITAMIN D (500/200) TAB PO SCH (20:29)
[2018-06-28] MEDS: LISINOPRIL 20 MG TAB PO SCH (20:31)
[2018-06-29 02:23] VITALS: BP 146/76; PULSE 70; RESP 18
[2018-06-29 07:56] VITALS: BP 157/72; PULSE 63; RESP 18
[2018-06-29] MEDS: carBAMAZepine (XR) 200 MG TABSR PO SCH ×3 (08:34→20:45)
[2018-06-29] MEDS: LEVETIRACETAM 500 MG TAB PO SCH ×2 (08:34→20:44)
[2018-06-29] MEDS: HYDROXYCHLOROQUINE 200 MG TAB PO SCH ×2 (08:35→20:47)
[2018-06-29] MEDS: METHYLDOPA 250 MG TAB PO SCH ×3 (08:36→20:47)
[2018-06-29] MEDS: CALCIUM/VITAMIN D (500/200) TAB PO SCH ×2 (08:36→20:46)
[2018-06-29] MEDS: AMLODIPINE 10 MG TAB PO SCH (08:37)
[2018-06-29] MEDS: ENOXAPARIN 40 MG/0.4 ML SYG SC SCH (08:39)
[2018-06-29] MEDS: HYDROCODONE/APAP (5/325) TAB PO PRN ×4 (08:42→22:18)
--- NOTE | 2018-06-29 13:11 | CONS ---
Assessment/Plan Assessment/Plan Hospital Course (Demo Recall) IMP: 1.Preop- now postop s/p closed reduction of LE fracture 2.HTNB 3.cad 4.seizure d/o 5.Hip fx Recc: -On med-surg -Continue hydralazine/lisinopril/coreg/norvasc/methyldopa and follow BP closely which is somewhat labile. ? component of pain -Continue keppra/carbamazapine -Pain control Consultation Date/Type/Reason Admit Date/Time June 22, 2018 at 23:12 Initial Consult Date 06/23/18 Type of Consult Cardiology Reason for Consultation preop/HTN Requesting Provider: ROXANNE BULLARD MD Date/Time of Note DATE: 06/29/18 TIME: 13:10 Exam/Review of Systems Vital Signs Vitals Vital Signs Date Temp Pulse Resp B/P (MAP) Pulse Ox O2 O2 Flow FiO2 Time Delivery Rate 06/29/18 98.0 63 18 157/72 98 Room Air 07:56 (100) Intake and Output 06/28/18 06/28/18 06/29/18 1515:00 23:00 07:00 IntakeIntake Total 840 ml OutputOutput Total 100 ml BalanceBalance 740 ml Exam Exam Review of Systems: CONSTITUTIONAL: No fevers, chills. PULMONARY: No sob CARDIOVASCULAR: No chest pain/palpitations GASTROINTESTINAL: No nausea/vomiting. GENITOURINARY: No hematuria/dysuria. MUSCULOSKELETAL: No myagias/arthalgias. PSYCHIATRIC: The patient denies depression. NEUROLOGIC: No weakness Constitutional: alert Psych: no complaints Head: normocephalic ENMT: mucosa pink and moist Neck: supple, jvd (9 cm water) Respiratory: clear to auscultation Cardiovascular: regular rate and rhythm Gastrointestinal: soft Musculoskeletal: muscle weakness (mild generalized) Extremities: edema (none) Labs Result Diagram: 06/27/18 0436 06/27/18 0436 Medications Medications Current Medications IV Flush (NS 3 ml) 3 ml PER PROTOCOL IV ; Start 06/23/18 at 00:00 Ondansetron HCl (Zofran Inj) 4 mg Q6H PRN IV NAUSEA/VOMITING; Start 06/23/18 at 00:00 Acetaminophen (Tylenol Tab) 650 mg Q6H PRN PO .PAIN 1-3 OR TEMP; Start 06/23/18 at 00:00 Acetaminophen/ Hydrocodone Bitart ([place] (5/325)) 1 tab Q6H PRN PO .MOD PAIN 4- 6 Last administered on 06/28/18 20:35; Admin Dose 1 TAB; Start 06/23/18 at 00:00 Acetaminophen/ Hydrocodone Bitart ([place] (5/325)) 2 tab Q6H PRN PO .SEVERE PAIN 7-10 Last administered on 06/29/18 08:42; Admin Dose 2 TAB; Start 06/23/18 at 0 0:00 Albuterol/ Ipratropium (Duoneb) 3 ml Q2H RESP THERAPY PRN HHN SHORTNESS OF BREATH; Start 06/23/18 at 00:00 Carbamazepine (Tegretol Xr) 400 mg TID PO Last administered on 06/29/18 08:34; Admin Dose 400 MG; Start 06/23/18 at 09:00 Levetiracetam (Keppra) 1,000 mg BID PO Last administered on 06/29/18 08:34; Admin Dose 1,000 MG; Start 06/23/18 at 12:30 Amlodipine Besylate (Norvasc) 10 mg DAILY PO Last administered on 06/29/18 08:37; Admin Dose 10 MG; Start 06/24/18 at 09:00 Carvedilol (Coreg) 6.25 mg BID GTB Last administered on 06/29/18 08:36; Admin Dose 6.25 MG; Start 06/24/18 at 21:00 Oxycodone HCl (Roxicodone) 5 mg Q4H PRN PO .PAIN Last administered on 06/28/18 12:12; Admin Dose 5 MG; Start 06/25/18 at 09:30 IV Flush (NS 3 ml) 3 ml per protocol IV ; Start 06/25/18 at 09:30 Enoxaparin Sodium (Lovenox) 40 mg DAILY SC Last administered on 06/29/18 08:39; Admin Dose 40 MG; Start 06/26/18 at 09:00 Loratadine (Claritin) 10 mg DAILY PRN PO NASAL CONGESTION Last administered on 06/27/18 08:05; Admin Dose 10 MG; Start 06/25/18 at 17:00 Hydralazine HCl (Apresoline) 100 mg TID PO Last administered on 06/29/18 08:35; Admin Dose 100 MG; Start 06/27/18 at 13:40 Hydroxychloroquine Sulfate (Plaquenil) 200 mg BID PO Last administered on 06/29/18 08:35; Admin Dose 200 MG; Start 06/27/18 at 21:00 Lisinopril (Zestril) 40 mg QHS PO Last administered on 06/28/18 20:31; Admin Dose 40 MG; Start 06/27/18 at 21:00 Calcium/Vitamin D ([place]yster [place]/ Vit-D (500/200)) 1 tab BID PO Last administered on 06/29/18 08:36; Admin Dose 1 TAB; Start 06/28/18 at 21:00 Methyldopa (Aldomet) 500 mg TID PO Last administered on 06/29/18 08:36; Admin Dose 500 MG; Start 06/28/18 at 15:30 Ibuprofen (Motrin) 800 mg TID PRN PO PAIN Last administered on 06/28/18 18:10; Admin Dose 800 MG; Start 06/28/18 at 17:40 DAKOTAH CARRANZA June 29, 2018 13:11
[2018-06-29 14:57] VITALS: BP 102/53; PULSE 70; RESP 18
--- NOTE | 2018-06-29 15:31 | PN ---
Date/Time of Note Date/Time of Note DATE: 06/29/18 TIME: 15:30 Assessment/Plan VTE Prophylaxis Risk score (from Ns)>0 risk: 10 SCD applied (from Ns): Yes Pharmacological prophylaxis: LMWH Lines/Catheters IV Catheter Type (from Nrsg): Saline Lock Urinary Cath still in place: No Assessment/Plan Hospital Course Pt continues to demonstrate impulsivity with mobility tasks and noncompliant with posterior hip precautions recommendations for a RU or SNF placement. Patient refusing SNF placement. Continue PT. Assessment/Plan -Traumatic dislocation of the left hip. S/p closed manipulative reduction of the left hip under general anesthesia by Dr Scruggs, orthopedic surgery on 06/25/2018. Continue PT. -Hx of hemiarthroplasty of the left hip. -Hypertension, continue Coreg, benazepril, Norvasc, and hydralazine. Dr. Cartagena is following in cardiology consultation. -Seizure disorder. Continue Keppra and Tegretol. -RA, continue Plaquenil. -Tobacco dependence Further recommendations based on clinical course. Plan of care discussed with Dr. Cummings. Result Diagram: 06/27/18 0436 06/27/18 0436 Exam/Review of Systems Exam Vitals Vital Signs Date Temp Pulse Resp B/P (MAP) Pulse Ox O2 O2 Flow FiO2 Time Delivery Rate 06/29/18 98.0 70 18 102/53 94 Room Air 14:57 (69) Intake and Output 06/28/18 06/28/18 06/29/18 1515:00 23:00 07:00 IntakeIntake Total 840 ml OutputOutput Total 100 ml BalanceBalance 740 ml Exam Constitutional: alert, oriented Respiratory: clear to auscultation Cardiovascular: nl pulses Gastrointestinal: soft, non-tender Extremities: normal pulses Neurological: nl mental status Skin: nl turgor Medications Medication Current Medications IV Flush (NS 3 ml) 3 ml PER PROTOCOL IV ; Start 06/23/18 at 00:00 Ondansetron HCl (Zofran Inj) 4 mg Q6H PRN IV NAUSEA/VOMITING; Start 06/23/18 at 00:00 Acetaminophen (Tylenol Tab) 650 mg Q6H PRN PO .PAIN 1-3 OR TEMP; Start 06/23/18 at 00:00 Acetaminophen/ Hydrocodone Bitart ([place] (5/325)) 1 tab Q6H PRN PO .MOD PAIN 4- 6 Last administered on 06/28/18 20:35; Admin Dose 1 TAB; Start 06/23/18 at 00:00 Acetaminophen/ Hydrocodone Bitart ([place] (5/325)) 2 tab Q6H PRN PO .SEVERE PAIN 7-10 Last administered on 06/29/18 15:20; Admin Dose 2 TAB; Start 06/23/18 at 00:00 Albuterol/ Ipratropium (Duoneb) 3 ml Q2H RESP THERAPY PRN HHN SHORTNESS OF BREATH; Start 06/23/18 at 00:00 Carbamazepine (Tegretol Xr) 400 mg TID PO Last administered on 06/29/18 13:26; Admin Dose 400 MG; Start 06/23/18 at 09:00 Levetiracetam (Keppra) 1,000 mg BID PO Last administered on 06/29/18 08:34; Admin Dose 1,000 MG; Start 06/23/18 at 12:30 Amlodipine Besylate (Norvasc) 10 mg DAILY PO Last administered on 06/29/18 08:37; Admin Dose 10 MG; Start 06/24/18 at 09:00 Carvedilol (Coreg) 6.25 mg BID GTB Last administered on 06/29/18 08:36; Admin Dose 6.25 MG; Start 06/24/18 at 21:00 Oxycodone HCl (Roxicodone) 5 mg Q4H PRN PO .PAIN Last administered on 06/28/18 12:12; Admin Dose 5 MG; Start 06/25/18 at 09:30 IV Flush (NS 3 ml) 3 ml per protocol IV ; Start 06/25/18 at 09:30 Enoxaparin Sodium (Lovenox) 40 mg DAILY SC Last administered on 06/29/18 08:39; Admin Dose 40 MG; Start 06/26/18 at 09:00 Loratadine (Claritin) 10 mg DAILY PRN PO NASAL CONGESTION Last administered on 06/27/18 08:05; Admin Dose 10 MG; Start 06/25/18 at 17:00 Hydralazine HCl (Apresoline) 100 mg TID PO Last administered on 06/29/18 13:26; Admin Dose 100 MG; Start 06/27/18 at 13:40 Hydroxychloroquine Sulfate (Plaquenil) 200 mg BID PO Last administered on 06/29/18 08:35; Admin Dose 200 MG; Start 06/27/18 at 21:00 Lisinopril (Zestril) 40 mg QHS PO Last administered on 06/28/18 20:31; Admin Dose 40 MG; Start 06/27/18 at 21:00 Calcium/Vitamin D (Oyster Shell/ Vit-D (500/200)) 1 tab BID PO Last administered on 06/29/18 08:36; Admin Dose 1 TAB; Start 06/28/18 at 21:00 Methyldopa (Aldomet) 500 mg TID PO Last administered on 06/29/18 13:25; Admin Dose 500 MG; Start 06/28/18 at 15:30 Ibuprofen (Motrin) 800 mg TID PRN PO PAIN Last administered on 06/28/18 18:10; Admin Dose 800 MG; Start 06/28/18 at 17:40 MARYANA ALONSO June 29, 2018 15:31
[2018-06-29 19:20] VITALS: BP 117/55; PULSE 62; RESP 18
[2018-06-29] MEDS: oxyCODONE 5 MG TAB PO PRN (19:37)
[2018-06-29] MEDS: LISINOPRIL 20 MG TAB PO SCH (21:00)
[2018-06-30 02:05] VITALS: BP 141/70; PULSE 60; RESP 20
[2018-06-30] MEDS: oxyCODONE 5 MG TAB PO PRN (02:06)
[2018-06-30] MEDS: HYDROCODONE/APAP (5/325) TAB PO PRN ×3 (05:43→20:07)
[2018-06-30 07:29] VITALS: BP 158/74; PULSE 56; RESP 18
[2018-06-30] MEDS: carBAMAZepine (XR) 200 MG TABSR PO SCH ×3 (08:53→20:25)
[2018-06-30] MEDS: HYDROXYCHLOROQUINE 200 MG TAB PO SCH ×2 (08:54→20:22)
[2018-06-30] MEDS: AMLODIPINE 10 MG TAB PO SCH (08:54)
[2018-06-30] MEDS: CALCIUM/VITAMIN D (500/200) TAB PO SCH ×2 (08:54→20:20)
[2018-06-30] MEDS: LEVETIRACETAM 500 MG TAB PO SCH ×2 (08:55→20:22)
[2018-06-30] MEDS: METHYLDOPA 250 MG TAB PO SCH ×3 (08:55→20:20)
[2018-06-30] MEDS: ENOXAPARIN 40 MG/0.4 ML SYG SC SCH (08:58)
--- NOTE | 2018-06-30 09:11 | PN ---
Date/Time of Note Date/Time of Note DATE: 06/30/18 TIME: 09:09 Assessment/Plan VTE Prophylaxis Risk score (from [facility])>0 risk: 10 SCD applied (from [facility]): Yes SCD contraindicated: other Pharmacological prophylaxis: other Pharm contraindication: other Lines/Catheters [facility] ([facility] Saline Lock Urinary Cath still in place: No Assessment/Plan Assessment/Plan -Traumatic dislocation of the left hip. S/p closed manipulative reduction of the left hip under general anesthesia by Dr Scruggs, orthopedic surgery on 06/25/2018. Continue PT. -Hx of hemiarthroplasty of the left hip. -Hypertension, continue Coreg, benazepril, Norvasc, and hydralazine. Dr. Cartagena is following in cardiology consultation. -Seizure disorder. Continue Keppra and Tegretol. -RA, continue Plaquenil. -Tobacco dependence Further recommendations based on clinical course. Plan of care discussed with Dr. Cummings. Result Diagram: 06/27/1843506/27/18435 Subjective 24 Hr Interval Summary Free Text/Dictation -NAD -Refused SNF/ARU -wants to go home -will arrange for Home Health dw staff Eyes: no complaints ENT: no complaints Respiratory: no complaints Cardiovascular: no complaints Gastrointestinal: no complaints Genitourinary: no complaints Musculoskeletal: bone/joint pain, restricted range of motion Neurologic: no complaints Endocrine: no complaints Lymphatic: no complaints Psychological: nl mood/affect Exam/Review of Systems Exam Vitals Vital Signs Date Temp Pulse Resp B/P (MAP) Pulse Ox O2 O2 Flow FiO2 Time Delivery Rate 06/30/18 98.2 56 18 158/74 98 Room Air 07:29 (102) Intake and Output 06/29/18 06/29/18 06/30/18 1515:00 23:00 07:00 IntakeIntake Total 680 ml 240 ml BalanceBalance 680 ml 240 ml Constitutional: alert, well developed Psych: nl mood/affect Eyes: nl lids, nl sclera ENMT: nl external ears & nose Respiratory: clear to auscultation Cardiovascular: nl pulses, other (s1s2) Gastrointestinal: soft, non-tender Musculoskeletal: joint tenderness, range of motion Extremities: normal pulses Neurological: nl speech, other (alert) Lymph: nontender Medications Medication Current Medications IV Flush (NS 3 ml) 3 ml PER PROTOCOL IV ; Start 06/23/18 at 00:00 Ondansetron HCl (Zofran Inj) 4 mg Q6H PRN IV NAUSEA/VOMITING; Start 06/23/18 at 00:00 Acetaminophen (Tylenol Tab) 650 mg Q6H PRN PO .PAIN 1-3 OR TEMP; Start 06/23/18 at 00:00 Acetaminophen/ Hydrocodone Bitart ([place] (5/325)) 1 tab Q6H PRN PO .MOD PAIN 4- 6 Last administered on 06/28/18at 20:35; Admin Dose 1 TAB; Start 06/23/18 at 00:00 Acetaminophen/ Hydrocodone Bitart ([place] (5/325)) 2 tab Q6H PRN PO .SEVERE PAIN 7-10 Last administered on 06/30/18 05:43; Admin Dose 2 TAB; Start 06/23/18 at 00:00 Albuterol/ Ipratropium (Duoneb) 3 ml Q2H RESP THERAPY PRN HHN SHORTNESS OF BREATH; Start 06/23/18 at 00:00 Carbamazepine (Tegretol Xr) 400 mg TID PO Last administered on 06/30/18 08:53; Admin Dose 400 MG; Start 06/23/18 at 09:00 Levetiracetam (Keppra) 1,000 mg BID PO Last administered on 06/30/18 08:55; Admin Dose 1,000 MG; Start 06/23/18 at 12:30 Amlodipine Besylate (Norvasc) 10 mg DAILY PO Last administered on 06/30/18 08:54; Admin Dose 10 MG; Start 06/24/18 at 09:00 Carvedilol (Coreg) 6.25 mg BID GTB Last administered on 06/30/18 08:55; Admin Dose 6.25 MG; Start 06/24/18 at 21:00 Oxycodone HCl (Roxicodone) 5 mg Q4H PRN PO .PAIN Last administered on 06/30/18 02:06; Admin Dose 5 MG; Start 06/25/18 at 09:30 IV Flush (NS 3 ml) 3 ml per protocol IV ; Start 06/25/18 at 09:30 Enoxaparin Sodium (Lovenox) 40 mg DAILY SC Last administered on 06/30/18 08:58; Admin Dose 40 MG; Start 06/26/18 at 09:00 Loratadine (Claritin) 10 mg DAILY PRN PO NASAL CONGESTION Last administered on 06/27/18 08:05; Admin Dose 10 MG; Start 06/25/18 at 17:00 Hydralazine HCl (Apresoline) 100 mg TID PO Last administered on 06/30/18 08:55; Admin Dose 100 MG; Start 06/27/18 at 13:40 Hydroxychloroquine Sulfate (Plaquenil) 200 mg BID PO Last administered on 06/30/18 08:54; Admin Dose 200 MG; Start 06/27/18 at 21:00 Lisinopril (Zestril) 40 mg QHS PO Last administered on 06/28/18 20:31; Admin Dose 40 MG; Start 06/27/18 at 21:00 Calcium/Vitamin D (Oyster Shell/ Vit-D (500/200)) 1 tab BID PO Last administered on 06/30/18 08:54; Admin Dose 1 TAB; Start 06/28/18 at 21:00 Methyldopa (Aldomet) 500 mg TID PO Last administered on 06/30/18 08:55; Admin Dose 500 MG; Start 06/28/18 at 15:30 Ibuprofen (Motrin) 800 mg TID PRN PO PAIN Last administered on 06/28/18 18:10; Admin Dose 800 MG; Start 06/28/18 at 17:40 JANNA MOYA June 30, 2018 09:11
--- NOTE | 2018-06-30 13:36 | CONS ---
Assessment/Plan Assessment/Plan Hospital Course (Demo Recall) IMP: 1.Preop- now postop s/p closed reduction of LE fracture 2.HTNB 3.cad 4.seizure d/o 5.Hip fx Recc: -On med-surg -Continue hydralazine/lisinopril/coreg/norvasc/methyldopa and follow BP closely which is somewhat labile. ? component of pain and had zestril held overnight for unclear reasons? -Continue keppra/carbamazapine -Pain control Consultation Date/Type/Reason Admit Date/Time June 22, 2018 at 23:12 Initial Consult Date 06/23/18 Type of Consult Cardiology Reason for Consultation HTN Requesting Provider: ROXANNE BULLARD MD Date/Time of Note DATE: 06/30/18 TIME: 13:35 Exam/Review of Systems Vital Signs Vitals Vital Signs Date Temp Pulse Resp B/P (MAP) Pulse Ox O2 O2 Flow FiO2 Time Delivery Rate 06/30/18 98.2 56 18 158/74 98 Room Air 07:29 (102) Intake and Output 06/29/18 06/29/18 06/30/18 1515:00 23:00 07:00 IntakeIntake Total 680 ml 240 ml BalanceBalance 680 ml 240 ml Exam Exam Review of Systems: CONSTITUTIONAL: No fevers, chills. PULMONARY: No sob CARDIOVASCULAR: No chest pain/palpitations GASTROINTESTINAL: No nausea/vomiting. GENITOURINARY: No hematuria/dysuria. MUSCULOSKELETAL: No myagias/arthalgias. PSYCHIATRIC: The patient denies depression. NEUROLOGIC: No weakness Constitutional: alert Psych: no complaints Head: normocephalic ENMT: mucosa pink and moist Neck: supple, jvd (9 cm water) Respiratory: diminished breath sounds (at bases/B) Cardiovascular: regular rate and rhythm Gastrointestinal: soft, non-tender Musculoskeletal: muscle weakness (mild generalized) Extremities: edema (none) Labs Result Diagram: 06/27/1843506/27/18435 Medications Medications Current Medications IV Flush (NS 3 ml) 3 ml PER PROTOCOL IV ; Start 06/23/18 at 00:00 Ondansetron HCl (Zofran Inj) 4 mg Q6H PRN IV NAUSEA/VOMITING; Start 06/23/18 at 00:00 Acetaminophen (Tylenol Tab) 650 mg Q6H PRN PO .PAIN 1-3 OR TEMP; Start 06/23/18 at 00:00 Acetaminophen/ Hydrocodone Bitart ([place] (5/325)) 1 tab Q6H PRN PO .MOD PAIN 4- 6 Last administered on 06/28/18at 20:35; Admin Dose 1 TAB; Start 06/23/18 at 00:00 Acetaminophen/ Hydrocodone Bitart ([place] (5/325)) 2 tab Q6H PRN PO .SEVERE PAIN 7-10 Last administered on 06/30/18 13:19; Admin Dose 2 TAB; Start 06/23/18 at 00:00 Albuterol/ Ipratropium (Duoneb) 3 ml Q2H RESP THERAPY PRN HHN SHORTNESS OF BREATH; Start 06/23/18 at 00:00 Carbamazepine (Tegretol Xr) 400 mg TID PO Last administered on 06/30/18at 12:55; Admin Dose 400 MG; Start 06/23/18 at 09:00 Levetiracetam (Keppra) 1,000 mg BID PO Last administered on 06/30/18at 08:55; Admin Dose 1,000 MG; Start 06/23/18 at 12:30 Amlodipine Besylate (Norvasc) 10 mg DAILY PO Last administered on 06/30/18at 0 8:54; Admin Dose 10 MG; Start 06/24/18 at 09:00 Carvedilol (Coreg) 6.25 mg BID GTB Last administered on 06/30/18 08:55; Admin Dose 6.25 MG; Start 06/24/18 at 21:00 Oxycodone HCl (Roxicodone) 5 mg Q4H PRN PO .PAIN Last administered on 06/30/18at 02:06; Admin Dose 5 MG; Start 06/25/18 at 09:30 IV Flush (NS 3 ml) 3 ml per protocol IV ; Start 06/25/18 at 09:30 Enoxaparin Sodium (Lovenox) 40 mg DAILY SC Last administered on 06/30/18at 08:58; Admin Dose 40 MG; Start 06/26/18 at 09:00 Loratadine (Claritin) 10 mg DAILY PRN PO NASAL CONGESTION Last administered on 06/27/18at 08:05; Admin Dose 10 MG; Start 06/25/18 at 17:00 Hydralazine HCl (Apresoline) 100 mg TID PO Last administered on 06/30/18at 1 2:54; Admin Dose 100 MG; Start 06/27/18 at 13:40 Hydroxychloroquine Sulfate (Plaquenil) 200 mg BID PO Last administered on 06/30/18 08:54; Admin Dose 200 MG; Start 06/27/18 at 21:00 Lisinopril (Zestril) 40 mg QHS PO Last administered on 06/28/18at 20:31; Admin Dose 40 MG; Start 06/27/18 at 21:00 Calcium/Vitamin D (Oyster Shell/ Vit-D (500/200)) 1 tab BID PO Last administered on 06/30/18 08:54; Admin Dose 1 TAB; Start 06/28/18 at 21:00 Methyldopa (Aldomet) 500 mg TID PO Last administered on 06/30/18 12:55; Admin Dose 500 MG; Start 06/28/18 at 15:30 Ibuprofen (Motrin) 800 mg TID PRN PO PAIN Last administered on 06/28/18 18:10; Admin Dose 800 MG; Start 06/28/18 at 17:40 DAKOTAH CARRANZA June 30, 2018 13:36
--- NOTE | 2018-06-30 13:42 | PDOCDIS ---
Discharge Instructions CONDITION [id number] Patient Condition: Esnfp4s Stable HOME CARE INSTRUCTIONS: [id number] Diet Instructions: [id number] Regular ACTIVITY: [id number] Activity Restrictions: [id number] Slowly Increase Activity Rest between Activity Avoid heavy lifting Do not Drive Do not operate Machinery Do not operate Power Tool Avoid Heavy Housework [id number] Bathing Restrictions: [id number] Sponge Bath [id number] Activity Restrictions [id number] waterproof incision area Comment: please FOLLOW UP/APPOINTMENTS Follow-up Plan Follow-up Plan - FU with Primary MD x 1 week - FU with ortho as recommended - call 911 or got to the nearest hospital if symptoms get worse -Patient verbalized understanding discharge instructions. staff/JANNA Haji June 30, 2018 13:42
[2018-06-30 15:02] VITALS: BP 138/76; PULSE 60; RESP 18
[2018-06-30 19:15] VITALS: BP 116/59; PULSE 65; RESP 20
[2018-06-30] MEDS: LISINOPRIL 20 MG TAB PO SCH (20:22)
[2018-07-01 02:00] VITALS: BP 117/56; PULSE 60; RESP 20
[2018-07-01] MEDS: HYDROCODONE/APAP (5/325) TAB PO PRN ×3 (05:07→16:55)
[2018-07-01 07:06] VITALS: BP 141/70; PULSE 58; RESP 14
[2018-07-01] MEDS: CALCIUM/VITAMIN D (500/200) TAB PO SCH (09:01)
[2018-07-01] MEDS: LEVETIRACETAM 500 MG TAB PO SCH (09:02)
[2018-07-01] MEDS: AMLODIPINE 10 MG TAB PO SCH (09:03)
[2018-07-01] MEDS: carBAMAZepine (XR) 200 MG TABSR PO SCH ×2 (09:04→13:32)
[2018-07-01] MEDS: METHYLDOPA 250 MG TAB PO SCH ×2 (09:04→13:25)
[2018-07-01] MEDS: HYDROXYCHLOROQUINE 200 MG TAB PO SCH (09:05)
[2018-07-01] MEDS: ENOXAPARIN 40 MG/0.4 ML SYG SC SCH (09:08)
[2018-07-01] MEDS: IBUPROFEN 800 MG TAB PO PRN (11:38)
--- NOTE | 2018-07-01 11:48 | DS ---
Date/Time of Note Date/Time of Note DATE: 07/01/18 TIME: 11:47 Discharge Summary Admission/Discharge Info Admit Date/Time June 22, 2018 at 23:12 Discharge Date/Time 07/01/18 Discharge Diagnosis -Traumatic dislocation of the left hip. S/p closed manipulative reduction of the left hip under general anesthesia by Dr Scruggs, orthopedic surgery on 06/25/2018. Continue PT. -Hx of hemiarthroplasty of the left hip. -Hypertension, continue Coreg, benazepril, Norvasc, and hydralazine. Dr. Cartagena is following in cardiology consultation. -Seizure disorder. Continue Keppra and Tegretol. -RA, continue Plaquenil. -Tobacco dependence Patient Condition: Fair Consults Orthopedics Procedures ORIF of left hip Hx of Present Illness Patient coms in after trauma causing left hip dislocation. Hospital Course Patient comes in after trauma causing left hip dislocation. Patient underwent left hip ORIF and when stable, patient will go to SNF for rehabilitation. -Traumatic dislocation of the left hip. S/p closed manipulative reduction of the left hip under general anesthesia by Dr Scruggs, orthopedic surgery on 06/25/2018. Continue PT. -Hx of hemiarthroplasty of the left hip. -Hypertension, continue Coreg, benazepril, Norvasc, and hydralazine. Dr. Cartagena is following in cardiology consultation. -Seizure disorder. Continue Keppra and Tegretol. -RA, continue Plaquenil. -Tobacco dependence Home Meds Reported Medications Hydrocodone Bit/Acetaminophen (Vicodin HP 10-300) 1 Each Tablet, 1 TAB PO Q4H PRN for PAIN, TAB 06/23/18 Hydralazine Hcl* (Hydralazine Hcl*) 50 Mg Tab, 100 MG PO TID, #180 TAB 06/23/18 Methyldopa* (Methyldopa*) 500 Mg Tablet, 500 MG PO TID, TAB 06/23/18 Amlodipine Besylate* (Amlodipine Besylate*) 10 Mg Tablet, 10 MG PO DAILY, #30 TAB 06/23/18 Lisinopril* (Lisinopril*) 40 Mg Tablet, 40 MG PO DAILY, #30 TAB 06/23/18 Hydroxychloroquine Sulfate* (Plaquenil*) 200 Mg Tab, 200 MG PO BID, TAB 5/10/19 Carbamazepine* (Tegretol Xr*) 200 Mg Tab.sr.12h, 400 MG PO TID, TAB.SA 04/24/17 Follow-up Plan Follow-up Plan - FU with Primary MD x 1 week - FU with ortho as recommended - call 911 or got to the nearest hospital if symptoms get worse -Patient verbalized understanding discharge instructions. Brad staff/Dr Cummings Primary Care Provider Not On Staff Doctor Pending Labs Laboratory Tests Test 07/01/18 05:09 White Blood Count 4.2 10^3/ul (4.8-10.8) Red Blood Count 3.09 10^6/ul (4.20-5.40) Hemoglobin 10.3 g/dl (12.0-16.0) Hematocrit 29.8 % (37.0-47.0) Mean Corpuscular Volume 96.4 fl (82.0-101.0) Mean Corpuscular Hemoglobin 33.3 pg (29.0-33.0) Mean Corpuscular Hemoglobin Concent 34.6 g/dl (32.0-37.0) Red Cell Distribution Width 14.6 % (11.5-14.5) Platelet Count 284 10^3/UL (140-415) Mean Platelet Volume 9.3 fl (7.4-10.4) Immature Granulocytes % 0.200 % (0.001-0.429) Neutrophils % 59.5 % (39.0-77.0) Lymphocytes % 20.7 % (15.0-51.0) Monocytes % 16.2 % (0.0-11.0) Eosinophils % 2.4 % (0.0-7.0) Basophils % 1.0 % (0.0-2.0) Nucleated Red Blood Cells % 0.0 /100WBC (0.0-0.0) Immature Granulocytes # 0.010 10^3/ul (0.0-0.031) Neutrophils # 2.5 10^3/ul (1.6-7.5) Lymphocytes # 0.9 10^3/ul (0.8-2.9) Monocytes # 0.7 10^3/ul (0.3-0.9) Eosinophils # 0.1 10^3/ul (0.0-0.5) Basophils # 0.0 10^3/ul (0.0-0.1) Nucleated Red Blood Cells # 0.0 10^3/ul (0.0-0.0) Sodium Level 131 mmol/L (135-144) Potassium Level 4.6 mmol/L (3.5-5.1) Chloride Level 96 mmol/L (97-110) Carbon Dioxide Level 28 mmol/L (21-31) Anion Gap 7 (5-13) Blood Urea Nitrogen 19 mg/dl (7-20) Creatinine 0.49 mg/dl (0.44-1.00) Est Glomerular Filtrat Rate mL/min > 60 mL/min (>60) Glucose Level 86 mg/dl (70-220) Calcium Level 8.3 mg/dl (8.4-10.2) KEI COCHRAN July 01, 2018 11:48
[2018-07-01 14:37] VITALS: BP 100/55; PULSE 62; RESP 16
--- NOTE | 2018-07-01 14:57 | CONS ---
Consult Date/Type/Reason Admit Date/Time June 22, 2018 at 23:12 Initial Consult Date Requesting Provider: ROXANNE BULLARD MD Date/Time of Note DATE: 07/01/18 TIME: 14:55 Subjective NO acute events - pt doing well with rehab 0- pain mostly controlled. NO CP now. ROS: No fever, no chills, no nausea, no vomiting, no diarrhea/constipation - mild SOB + back pain, chronic Objective Vitals Vital Signs Date Temp Pulse Resp B/P (MAP) Pulse Ox O2 O2 Flow FiO2 Time Delivery Rate 07/01/18 98.2 62 16 100/55 98 Room Air 14:37 (70) Intake and Output 06/30/18 06/30/18 07/01/18 1515:00 23:00 07:00 IntakeIntake Total 240 ml 760 ml 200 ml BalanceBalance 240 ml 760 ml 200 ml Exam General: WN/WD/NAD, AOx 3 HEENT: Unicetric/atraumatic/EOMI ( follows commands) NECK: JVD elevated, no thyromegaly Lymph: no lymphadenopathy HEART: regular with no S3, II/ systolic murmur at apex, PMI L LUNGS: Coarse sounds ABD: soft, NT, ND, +BS : Intact Neuro: non focal SKIN: chronic changes EXT: trace edema - post op hip Results/Medications Result Diagram: 07/01/18 0509 07/01/18 0509 Results 24 hrs Laboratory Tests Test 07/01/18 05:09 White Blood Count 4.2 L Red Blood Count 3.09 L Hemoglobin 10.3 L Hematocrit 29.8 L Mean Corpuscular Volume 96.4 Mean Corpuscular Hemoglobin 33.3 H Mean Corpuscular Hemoglobin Concent 34.6 Red Cell Distribution Width 14.6 H Platelet Count 284 # Mean Platelet Volume 9.3 Immature Granulocytes % 0.200 Neutrophils % 59.5 Lymphocytes % 20.7 Monocytes % 16.2 H Eosinophils % 2.4 Basophils % 1.0 Nucleated Red Blood Cells % 0.0 Immature Granulocytes # 0.010 Neutrophils # 2.5 Lymphocytes # 0.9 Monocytes # 0.7 Eosinophils # 0.1 Basophils # 0.0 Nucleated Red Blood Cells # 0.0 Sodium Level 131 L Potassium Level 4.6 Chloride Level 96 L Carbon Dioxide Level 28 Anion Gap 7 Blood Urea Nitrogen 19 Creatinine 0.49 Est Glomerular Filtrat Rate mL/min > 60 Glucose Level 86 Calcium Level 8.3 L Home Meds Reported Medications Hydrocodone Bit/Acetaminophen (Vicodin HP 10-300) 1 Each Tablet, 1 TAB PO Q4H PRN for PAIN, TAB 06/23/18 Hydralazine Hcl* (Hydralazine Hcl*) 50 Mg Tab, 100 MG PO TID, #180 TAB 06/23/18 Methyldopa* (Methyldopa*) 500 Mg Tablet, 500 MG PO TID, TAB 06/23/18 Amlodipine Besylate* (Amlodipine Besylate*) 10 Mg Tablet, 10 MG PO DAILY, #30 TAB 06/23/18 Lisinopril* (Lisinopril*) 40 Mg Tablet, 40 MG PO DAILY, #30 TAB 06/23/18 Hydroxychloroquine Sulfate* (Plaquenil*) 200 Mg Tab, 200 MG PO BID, TAB 06/23/18 Carbamazepine* (Tegretol Xr*) 200 Mg Tab.sr.12h, 400 MG PO TID, TAB.SA 04/24/17 Medications Current Medications IV Flush (NS 3 ml) 3 ml PER PROTOCOL IV ; Start 06/23/18 at 00:00 Ondansetron HCl (Zofran Inj) 4 mg Q6H PRN IV NAUSEA/VOMITING; Start 06/23/18 at 00:00 Acetaminophen (Tylenol Tab) 650 mg Q6H PRN PO .PAIN 1-3 OR TEMP; Start 06/23/18 at 00:00 Acetaminophen/ Hydrocodone Bitart ([place] (5/325)) 1 tab Q6H PRN PO .MOD PAIN 4- 6 Last administered on 07/01/18at 09:04; Admin Dose 1 TAB; Start 06/23/18 at 00:00 Acetaminophen/ Hydrocodone Bitart ([place] (5/325)) 2 tab Q6H PRN PO .SEVERE PAIN 7-10 Last administered on 06/30/18at 13:19; Admin Dose 2 TAB; Start 06/23/18 at 00:00 Albuterol/ Ipratropium (Duoneb) 3 ml Q2H RESP THERAPY PRN HHN SHORTNESS OF ALIS ATH; Start 06/23/18 at 00:00 Carbamazepine (Tegretol Xr) 400 mg TID PO Last administered on 5/18/19at 13:32; Admin Dose 400 MG; Start 06/23/18 at 09:00 Levetiracetam (Keppra) 1,000 mg BID PO Last administered on 07/01/18 09:02; Admin Dose 1,000 MG; Start 06/23/18 at 12:30 Amlodipine Besylate (Norvasc) 10 mg DAILY PO Last administered on 07/01/18 09:03; Admin Dose 10 MG; Start 06/24/18 at 09:00 Carvedilol (Coreg) 6.25 mg BID GTB Last administered on 07/01/18 09:03; Admin Dose 6.25 MG; Start 06/24/18 at 21:00 Oxycodone HCl (Roxicodone) 5 mg Q4H PRN PO .PAIN Last administered on 06/30/18 02:06; Admin Dose 5 MG; Start 06/25/18 at 09:30 IV Flush (NS 3 ml) 3 ml per protocol IV ; Start 06/25/18 at 09:30 Enoxaparin Sodium (Lovenox) 40 mg DAILY SC Last administered on 07/01/18 09:08; Admin Dose 40 MG; Start 06/26/18 at 09:00 Loratadine (Claritin) 10 mg DAILY PRN PO NASAL CONGESTION Last administered on 06/27/18 08:05; Admin Dose 10 MG; Start 06/25/18 at 17:00 Hydralazine HCl (Apresoline) 100 mg TID PO Last administered on 07/01/18 13:26; Admin Dose 100 MG; Start 06/27/18 at 13:40 Hydroxychloroquine Sulfate (Plaquenil) 200 mg BID PO Last administered on 07/01/18 09:05; Admin Dose 200 MG; Start 06/27/18 at 21:00 Lisinopril (Zestril) 40 mg QHS PO Last administered on 06/30/18 20:22; Admin Dose 40 MG; Start 06/27/18 at 21:00 Calcium/Vitamin D (Oyster Shell/ Vit-D (500/200)) 1 tab BID PO Last administered on 07/01/18 09:01; Admin Dose 1 TAB; Start 06/28/18 at 21:00 Methyldopa (Aldomet) 500 mg TID PO Last administered on 07/01/18at 13:25; Admin Dose 500 MG; Start 06/28/18 at 15:30 Ibuprofen (Motrin) 800 mg TID PRN PO PAIN Last administered on 07/01/18at 11:38; Admin Dose 800 MG; Start 06/28/18 at 17:40 Assessment/Plan Hospital Course (Demo Recall) 1. Valery-op: Negative stress test with EF 45% recently. Continue to monitor. We will see if she can tolerate a small dose of perioperative beta rudi.POST op now - tolerated well Doing well post op- pain Rx, ambulation as Ok per orthopedic MD. Defer pain meds Rx to PMD. Increased ambulation. 2. Hypertension. Blood pressure is labile. We will see if beta rudi will help. Will add rx tomorrow if needed TREATED. Maintained. 3. Chronic obstructive pulmonary disease. The patient has history of chronic obstructive pulmonary disease. No active wheezing at the moment. We will initiate beta rudi. NO wheezing now. 4. Hypokalemia. Continue to replace potassium as indicated. Replaced. 5. Murmur - Last echo did not show any obstructive valve disease. She goldie ated surgeries before. We will follow clinically. Stable by exam. TR likely. Euvolemic by exam. 6. History of tobacco use. Discontinue tobacco use advised. Dispo planned. BEBE RUSH MD July 01, 2018 14:57
== END 2018-07-01 17:45 | disposition home health service (06) | DRG 560 ==
LOC: FTE 18:10 → MS1 23:12
PROVIDERS: ADMIT Internal Medicine; ATTEND Internal Medicine
PROC: 0SWEXJZ Revision of Synthetic Substitute in Left Hip Joint, Acetabular Surface, External Approach (ICD-10-PCS; principal; 2018-06-25 08:00)
DX: T84.021A Dislocation of internal left hip prosthesis, initial encounter (principal); S32.501A Unspecified fracture of right pubis, initial encounter for closed fracture; I50.30 Unspecified diastolic (congestive) heart failure; M06.9 Rheumatoid arthritis, unspecified; G40.909 Epilepsy, unspecified, not intractable, without status epilepticus; M54.5 Low back pain; Z91.81 History of falling; W19.XXXA Unspecified fall, initial encounter; Z96.642 Presence of left artificial hip joint; J44.9 Chronic obstructive pulmonary disease, unspecified; E87.6 Hypokalemia; F17.200 Nicotine dependence, unspecified, uncomplicated; I11.0 Hypertensive heart disease with heart failure; I25.10 Atherosclerotic heart disease of native coronary artery without angina pectoris; E78.5 Hyperlipidemia, unspecified
CPT/HCPCS: 71045; 72170; 72192; 73500; 73510; 73550; 73590; 80048; 80053; 82962; 83735; 84100; 84484; 85025; 85610; 93005; 93306; 94770; 96372; 96374; 96375; 97110; 97116; 97161; 97530; J0360; J0690; J1170; J1644; J1650; J1885; J2250; J2270; J2370; J2405; J3010; J7042